=== PATIENT | male | born 1980 | race Caucasian/White ===

== ENCOUNTER 2017-01-16 23:51 | Emergency (ER) | payer OTHER ==
[~2017-01-16] VITALS: Ht 180.3 cm; Wt 118.4 kg
[~2017-01-16 23:51] MED LIST: ADDERALL20 MG PO; ADDERALL5 MG PO; ALBUTEROL0.09 MG/A2 INH; AMOXICILLIN500 M2 PO; AMOXICILLIN500 MG PO; ANTIBIOTIC PO; BACTRIM DS 8001 TA1 PO; BUSPAR PO; BUSPAR15 MG PO; CALCIUM 600 +1 EAC2 PO; CARTIA XT180 MG PO; CEPHALEXIN500 M1 PO; CIPRO PO; CLARITIN10 MG PO; CLONIDINE0.2 MG PO; COLACE100 MG PO; CYMBALTA60 MG PO; DEXTROAMPH SACC20 M1 PO; DIABETA5 MG PO; DIAZEPAM5 MG PO; DOXYCYCLINE MO100 MG PO; DURICEF500 MG PO; GLYBURIDE5 MG PO; HOMEMED SQ; HYDR25T PO; HYDRALAZINE HYD50 MG PO; HYDROXYZINE PAM50 MG PO; KEFLEX500 MG PO; LABETALOL HCL200 MG PO; LASIX40 MG PO; LOSARTAN POTASS1 TA6 PO; LOTRISONE 0.05%1 CRE TP; MEDROL DOSEPAK4 MG PO; METFORMIN HCL500 MG PO; MINIPRESS2 M1 PO; MOTRIN800 MG PO; NEURONTIN300 MG PO; NORVASC10 MG PO; PENICILLIN VK500 MG PO; PERPHENAZINE4 M1 PO; POTASSIUM CHLO10 MEQ PO; PRAVACHOL20 MG PO; PREDNICOT20 MG PO; PRILOSEC20 M1 PO; PRINIVIL10 MG PO; ROBITUSSIN-AC 160 ML PO; Synthroid,Levo50 MCG PO; TESSALON PERLE200 MG PO; TRAMADOL HCL50 MG PO; TRILAFON4 MG PO; Tessalon Perle100 MG PO; ULTRAM50 MG PO; VALIUM10 MG PO; VALIUM5 MG PO; VALSARTAN160 MG PO; VICODIN 5/500 505 MG PO; VISTARIL PO; VISTARIL25 M1 PO; ZESTORETIC 12.51 TA2 PO; ZITHROMAX Z PA250 MG PO; ZITHROMAX Z-PA250 MG PO; ZITHROMAX250 MG PO; ZOFRAN ODT4 MG SL; ZYRTEC10 MG PO; Zofran4 MG PO
[2017-01-17] MEDS ORDERED: APRESOLINE10 MG PO (00:03)
[2017-01-17] MEDS ORDERED: COZAAR25 M1 PO (00:03)
[2017-01-17] MEDS ORDERED: LEVOTHYROXINE0.05 M1 PO (00:04)
[2017-01-17] MEDS ORDERED: LABETALOL HCL200 MG PO (00:04)
[2017-01-17] MEDS ORDERED: GLYBURIDE5 MG PO (00:04)
[2017-01-17] MEDS ORDERED: ATORVASTATIN CA20 M1 PO (00:05)
[2017-01-17 00:17] VITALS: BP 146/76
== END 2017-01-17 00:43 | disposition home or self-care (01) ==
LOC: ED 23:51
DX: S80.812A Abrasion, left lower leg, initial encounter (principal); E11.9 Type 2 diabetes mellitus without complications; I12.9 Hypertensive chronic kidney disease with stage 1 through stage 4 chronic kidney disease, or unspecified chronic kidney disease; N18.3 Chronic kidney disease, stage 3 (moderate); Z79.899 Other long term (current) drug therapy; W17.2XXA Fall into hole, initial encounter; Y93.01 Activity, walking, marching and hiking; Y92.89 Other specified places as the place of occurrence of the external cause; Y99.8 Other external cause status

== ENCOUNTER → 2017-01-30 | Outpatient (CLI) | payer OTHER ==
[~2017-01-30] MED LIST changes: +APRESOLINE10 MG PO; +ATORVASTATIN CA20 M1 PO; +COZAAR25 M1 PO; +LEVOTHYROXINE0.05 M1 PO
[2017-01-30 12:35] LABS: HEMATOCRIT 29.4 % (42.0-52.0); HEMOGLOBIN 10.2 g/dl (14.0-18.0); MEAN CELL VOLUME 88.6 fl (80.0-94.0); MEAN CORPUSCULAR HGB 30.7 pg (27.0-31.0); MEAN CORPUSCULAR HGB CONC 34.7 g/dl (33.0-37.0); MEAN PLATELET VOLUME 10.8 fl (9.6-12.3); RED BLOOD COUNT 3.32 10*6/uL (4.50-5.90); RED CELL DISTRI WIDTH 13.4 % (0-14.5); WHITE BLOOD COUNT 8.3 10*3/uL (4.8-10.8)
[2017-01-30 12:53] LABS: ALBUMIN 3.1 gm/dl (3.1-4.5); BILIRUBIN, TOTAL 0.2 mg/dl (0.2-1.0); POTASSIUM 4.8 mmol/L (3.5-5.1); TOTAL PROTEIN 6.4 gm/dL (6.4-8.2)
[2017-01-30 12:59] LABS: FREE T4 0.96 ng/dl (0.76-1.46); THYROID STIM HORMONE (HS) 2.6 uIU/ml (0.358-4.75)
== END | disposition home or self-care (01) ==
LOC: LAB 12:20
PROVIDERS: Family Medicine
DX: E11.9 Type 2 diabetes mellitus without complications (principal); E78.00 Pure hypercholesterolemia, unspecified; I10 Essential (primary) hypertension; E03.9 Hypothyroidism, unspecified

== ENCOUNTER → 2017-02-27 | Outpatient (CLI) | payer OTHER ==
[2017-02-27 11:38] LABS: BASO % 0.4 % (0.0-1.0); EOS # 0.2 10*3/uL (0.0-0.4); EOS % 2.2 % (1.0-4.0); HEMATOCRIT 33.1 % (42.0-52.0); HEMOGLOBIN 11.5 g/dl (14.0-18.0); IG # 0.1 10*3/uL (0.0-0.1); LYMPH # 2.8 10*3/uL (1.3-4.4); LYMPH % 27.4 % (27.0-41.0); MEAN CELL VOLUME 86.4 fl (80.0-94.0); MEAN CORPUSCULAR HGB CONC 34.7 g/dl (33.0-37.0); MEAN PLATELET VOLUME 11.1 fl (9.6-12.3); MONO # 0.6 10*3/uL (0.1-1.0); MONO % 5.7 % (3.0-9.0); NEUT # 6.4 10*3/uL (2.3-7.9); NEUT % 63.6 % (47.0-73.0); PLATELET COUNT AUTOMATED 216 10*3/uL (130-400); RED BLOOD COUNT 3.83 10*6/uL (4.50-5.90); RED CELL DISTRI WIDTH 12.8 % (0-14.5); WHITE BLOOD COUNT 10.1 10*3/uL (4.8-10.8)
[2017-02-27 11:55] LABS: HEMOGLOBIN A1c 6.9 % (4.8-5.6)
[2017-02-27 12:06] LABS: ALBUMIN 3.4 gm/dl (3.1-4.5); MAGNESIUM 1.8 mg/dL (1.5-2.1); PHOSPHOROUS 4.4 mg/dL (2.5-4.9); POTASSIUM 4.6 mmol/L (3.5-5.1)
[2017-02-27 12:41] LABS: VITAMIN D, 25-HYDROXY 23.3 ng/mL (30-100)
[2017-02-27 12:42] LABS: FERRITIN 185.7 ng/mL (22.0-322.0); PTH INTACT 131.1 pg/mL (14.0-72.0)
[2017-02-27 16:11] LABS: BILIRUBIN NEGATIVE (NEGATIVE); BLOOD NEGATIVE (NEGATIVE); CLARITY SL CLOUDY (CLEAR); COLOR YELLOW (YELLOW); GLUCOSE 2+ (NEGATIVE); KETONE NEGATIVE (NEGATIVE); LEUKO ESTERASE NEGATIVE (NEGATIVE); NITRITE NEGATIVE (NEGATIVE); PH 5.5 (5.0-9.0); PROTEIN 3+ (NEGATIVE); SPECIFIC GRAVITY 1.025 (1.005-1.030); UROBILINOGEN 0.2 E.U./dl (0.2-1.0)
[2017-02-27 16:18] LABS: URINE TP/CRE RATIO 1.5 (<0.21)
[2017-02-27 16:25] LABS: BACTERIA 3+; HYALINE CAST 0-2; MUCOUS TRACE; RBC 0-2 rbc/hpf (0-2); URINE REFLEX COMMENT YES (NO)
== END | disposition home or self-care (01) ==
LOC: US 09:30 → LAB 09:39
PROVIDERS: Family Medicine; Internal Medicine Nephrology
DX: I12.9 Hypertensive chronic kidney disease with stage 1 through stage 4 chronic kidney disease, or unspecified chronic kidney disease (principal); E11.21 Type 2 diabetes mellitus with diabetic nephropathy; E11.22 Type 2 diabetes mellitus with diabetic chronic kidney disease; N18.3 Chronic kidney disease, stage 3 (moderate); N25.81 Secondary hyperparathyroidism of renal origin; I70.1 Atherosclerosis of renal artery; D63.1 Anemia in chronic kidney disease; R79.89 Other specified abnormal findings of blood chemistry

== ENCOUNTER → 2017-03-07 | Outpatient (CLI) | payer OTHER | END | disposition home or self-care (01) | LOC: NM 11:00 | DX: I15.9 Secondary hypertension, unspecified (principal) ==

== ENCOUNTER → 2017-04-03 | Outpatient (CLI) | payer OTHER ==
[2017-04-03 14:39] LABS: CREATININE 2.3 mg/dL (0.70-1.30); PHOSPHOROUS 4.3 mg/dL (2.5-4.9); POTASSIUM 4.7 mmol/L (3.5-5.1)
[2017-04-03 14:40] LABS: ALBUMIN 3.3 gm/dl (3.1-4.5)
== END | disposition home or self-care (01) ==
LOC: LAB 14:02
PROVIDERS: Family Medicine
DX: I10 Essential (primary) hypertension (principal); I70.1 Atherosclerosis of renal artery

== ENCOUNTER → 2017-05-10 | Outpatient (CLI) | payer OTHER ==
[2017-05-10 14:46] LABS: BILIRUBIN NEGATIVE (NEGATIVE); BLOOD NEGATIVE (NEGATIVE); CLARITY SL CLOUDY (CLEAR); COLOR YELLOW (YELLOW); GLUCOSE 1+ (NEGATIVE); KETONE NEGATIVE (NEGATIVE); LEUKO ESTERASE NEGATIVE (NEGATIVE); NITRITE NEGATIVE (NEGATIVE); PH 5.5 (5.0-9.0); SPECIFIC GRAVITY 1.025 (1.005-1.030); UROBILINOGEN 0.2 E.U./dl (0.2-1.0)
[2017-05-10 14:56] LABS: RBC 0-2 rbc/hpf (0-2)
[2017-05-10 14:57] LABS: BACTERIA 2+; MUCOUS TRACE
[2017-05-10 15:05] LABS: BASO # 0.1 10*3/uL (0.0-0.1); BASO % 0.7 % (0.0-1.0); EOS # 0.2 10*3/uL (0.0-0.4); HEMATOCRIT 30.2 % (42.0-52.0); HEMOGLOBIN 10.4 g/dl (14.0-18.0); LYMPH # 2.3 10*3/uL (1.3-4.4); LYMPH % 24.9 % (27.0-41.0); MEAN CELL VOLUME 85.6 fl (80.0-94.0); MEAN CORPUSCULAR HGB 29.5 pg (27.0-31.0); MEAN CORPUSCULAR HGB CONC 34.4 g/dl (33.0-37.0); MEAN PLATELET VOLUME 11.4 fl (9.6-12.3); MONO # 0.5 10*3/uL (0.1-1.0); MONO % 5.1 % (3.0-9.0); NEUT % 66.5 % (47.0-73.0); PLATELET COUNT AUTOMATED 190 10*3/uL (130-400); RED BLOOD COUNT 3.53 10*6/uL (4.50-5.90); RED CELL DISTRI WIDTH 13.2 % (0-14.5)
[2017-05-10 15:22] LABS: ALBUMIN 3.3 gm/dl (3.1-4.5); CREATININE 2.48 mg/dL (0.70-1.30); MAGNESIUM 1.9 mg/dL (1.5-2.1); PHOSPHOROUS 3.6 mg/dL (2.5-4.9); POTASSIUM 4.9 mmol/L (3.5-5.1)
[2017-05-10 15:57] LABS: FERRITIN 253.5 ng/mL (22.0-322.0); PTH INTACT 110.3 pg/mL (14.0-72.0); VITAMIN D, 25-HYDROXY 17.5 ng/mL (30-100)
== END | disposition home or self-care (01) ==
LOC: LAB 14:22
PROVIDERS: Internal Medicine Nephrology
DX: N18.3 Chronic kidney disease, stage 3 (moderate) (principal); D63.1 Anemia in chronic kidney disease; N25.81 Secondary hyperparathyroidism of renal origin; R82.79 Other abnormal findings on microbiological examination of urine

== ENCOUNTER → 2017-06-05 | Outpatient (CLI) | payer OTHER ==
[2017-06-05 14:46] LABS: BASO % 0.5 % (0.0-1.0); EOS # 0.1 10*3/uL (0.0-0.4); EOS % 1.9 % (1.0-4.0); HEMATOCRIT 28.7 % (42.0-52.0); HEMOGLOBIN 9.9 g/dl (14.0-18.0); LYMPH # 2.1 10*3/uL (1.3-4.4); LYMPH % 27.4 % (27.0-41.0); MEAN CELL VOLUME 84.9 fl (80.0-94.0); MEAN CORPUSCULAR HGB 29.3 pg (27.0-31.0); MEAN CORPUSCULAR HGB CONC 34.5 g/dl (33.0-37.0); MEAN PLATELET VOLUME 11.1 fl (9.6-12.3); MONO # 0.5 10*3/uL (0.1-1.0); NEUT # 4.8 10*3/uL (2.3-7.9); NEUT % 63.5 % (47.0-73.0); PLATELET COUNT AUTOMATED 210 10*3/uL (130-400); RED BLOOD COUNT 3.38 10*6/uL (4.50-5.90); RED CELL DISTRI WIDTH 13.1 % (0-14.5); WHITE BLOOD COUNT 7.5 10*3/uL (4.8-10.8)
[2017-06-05 15:20] LABS: ALBUMIN 3.3 gm/dl (3.1-4.5); MAGNESIUM 2.1 mg/dL (1.5-2.1); POTASSIUM 5.2 mmol/L (3.5-5.1)
[2017-06-05 15:21] LABS: CREATININE 2.49 mg/dL (0.70-1.30); PHOSPHOROUS 2.7 mg/dL (2.5-4.9)
== END | disposition home or self-care (01) ==
LOC: LAB 13:59
PROVIDERS: Internal Medicine Nephrology
DX: N18.3 Chronic kidney disease, stage 3 (moderate) (principal); D63.1 Anemia in chronic kidney disease

== ENCOUNTER → 2017-06-19 | Outpatient (CLI) | payer OTHER ==
[2017-06-19 14:37] LABS: BASO % 0.4 % (0.0-1.0); EOS # 0.2 10*3/uL (0.0-0.4); EOS % 2.3 % (1.0-4.0); HEMATOCRIT 29.2 % (42.0-52.0); HEMOGLOBIN 10.1 g/dl (14.0-18.0); LYMPH % 30.2 % (27.0-41.0); MEAN CELL VOLUME 84.6 fl (80.0-94.0); MEAN CORPUSCULAR HGB 29.3 pg (27.0-31.0); MEAN CORPUSCULAR HGB CONC 34.6 g/dl (33.0-37.0); MEAN PLATELET VOLUME 11.3 fl (9.6-12.3); MONO # 0.6 10*3/uL (0.1-1.0); MONO % 5.8 % (3.0-9.0); NEUT # 5.9 10*3/uL (2.3-7.9); NEUT % 60.8 % (47.0-73.0); PLATELET COUNT AUTOMATED 213 10*3/uL (130-400); RED BLOOD COUNT 3.45 10*6/uL (4.50-5.90); WHITE BLOOD COUNT 9.8 10*3/uL (4.8-10.8)
[2017-06-19 14:51] LABS: ALBUMIN 3.5 gm/dl (3.1-4.5); CREATININE 2.43 mg/dL (0.70-1.30); PHOSPHOROUS 3.9 mg/dL (2.5-4.9); POTASSIUM 4.4 mmol/L (3.5-5.1)
== END ==
LOC: LAB 13:44
PROVIDERS: Internal Medicine Nephrology
DX: N18.3 Chronic kidney disease, stage 3 (moderate) (principal); D63.1 Anemia in chronic kidney disease

== ENCOUNTER → 2017-07-04 | Outpatient (CLI) | payer OTHER ==
[2017-07-04 15:42] LABS: BASO # 0.1 10*3/uL (0.0-0.1); BASO % 0.6 % (0.0-1.0); EOS # 0.2 10*3/uL (0.0-0.4); EOS % 2.3 % (1.0-4.0); HEMOGLOBIN 10.3 g/dl (14.0-18.0); LYMPH # 2.2 10*3/uL (1.3-4.4); LYMPH % 25.3 % (27.0-41.0); MEAN CELL VOLUME 84.3 fl (80.0-94.0); MEAN CORPUSCULAR HGB 28.9 pg (27.0-31.0); MEAN CORPUSCULAR HGB CONC 34.3 g/dl (33.0-37.0); MEAN PLATELET VOLUME 11.4 fl (9.6-12.3); MONO # 0.5 10*3/uL (0.1-1.0); MONO % 5.4 % (3.0-9.0); NEUT # 5.8 10*3/uL (2.3-7.9); NEUT % 65.8 % (47.0-73.0); PLATELET COUNT AUTOMATED 215 10*3/uL (130-400); RED BLOOD COUNT 3.56 10*6/uL (4.50-5.90); WHITE BLOOD COUNT 8.8 10*3/uL (4.8-10.8)
[2017-07-04 15:54] LABS: ALBUMIN 3.7 gm/dl (3.1-4.5); CREATININE 2.54 mg/dL (0.70-1.30); PHOSPHOROUS 4.6 mg/dL (2.5-4.9); POTASSIUM 4.3 mmol/L (3.5-5.1)
== END ==
LOC: LAB 14:58
PROVIDERS: Internal Medicine Nephrology
DX: N18.3 Chronic kidney disease, stage 3 (moderate) (principal); D63.1 Anemia in chronic kidney disease

== ENCOUNTER → 2017-07-19 | Outpatient (CLI) | payer OTHER ==
[2017-07-19 16:50] LABS: BASO # 0.1 10*3/uL (0.0-0.1); BASO % 0.5 % (0.0-1.0); EOS # 0.2 10*3/uL (0.0-0.4); EOS % 1.8 % (1.0-4.0); HEMATOCRIT 28.7 % (42.0-52.0); HEMOGLOBIN 9.8 g/dl (14.0-18.0); LYMPH # 2.1 10*3/uL (1.3-4.4); LYMPH % 22.2 % (27.0-41.0); MEAN CELL VOLUME 83.9 fl (80.0-94.0); MEAN CORPUSCULAR HGB 28.7 pg (27.0-31.0); MEAN CORPUSCULAR HGB CONC 34.1 g/dl (33.0-37.0); MEAN PLATELET VOLUME 11.2 fl (9.6-12.3); MONO # 0.5 10*3/uL (0.1-1.0); MONO % 5.4 % (3.0-9.0); NEUT # 6.6 10*3/uL (2.3-7.9); NEUT % 69.1 % (47.0-73.0); PLATELET COUNT AUTOMATED 205 10*3/uL (130-400); RED BLOOD COUNT 3.42 10*6/uL (4.50-5.90); WHITE BLOOD COUNT 9.5 10*3/uL (4.8-10.8)
[2017-07-19 17:18] LABS: ALBUMIN 3.6 gm/dl (3.1-4.5); CREATININE 2.68 mg/dL (0.70-1.30); PHOSPHOROUS 4.3 mg/dL (2.5-4.9); POTASSIUM 4.8 mmol/L (3.5-5.1)
== END | disposition home or self-care (01) ==
LOC: LAB 16:05
PROVIDERS: Internal Medicine Nephrology
DX: I12.9 Hypertensive chronic kidney disease with stage 1 through stage 4 chronic kidney disease, or unspecified chronic kidney disease (principal); E11.22 Type 2 diabetes mellitus with diabetic chronic kidney disease; N18.3 Chronic kidney disease, stage 3 (moderate); D63.1 Anemia in chronic kidney disease

== ENCOUNTER → 2017-08-09 | Outpatient (CLI) | payer OTHER ==
[2017-08-09 16:17] LABS: BASO % 0.2 % (0.0-1.0); EOS # 0.1 10*3/uL (0.0-0.4); EOS % 1.3 % (1.0-4.0); HEMATOCRIT 29.4 % (42.0-52.0); HEMOGLOBIN 10.3 g/dl (14.0-18.0); LYMPH # 2.5 10*3/uL (1.3-4.4); LYMPH % 23.6 % (27.0-41.0); MEAN CELL VOLUME 83.3 fl (80.0-94.0); MEAN CORPUSCULAR HGB 29.2 pg (27.0-31.0); MEAN PLATELET VOLUME 10.9 fl (9.6-12.3); MONO # 0.6 10*3/uL (0.1-1.0); MONO % 6.1 % (3.0-9.0); NEUT # 7.1 10*3/uL (2.3-7.9); NEUT % 68.4 % (47.0-73.0); PLATELET COUNT AUTOMATED 246 10*3/uL (130-400); RED BLOOD COUNT 3.53 10*6/uL (4.50-5.90); RED CELL DISTRI WIDTH 12.8 % (0-14.5); WHITE BLOOD COUNT 10.4 10*3/uL (4.8-10.8)
[2017-08-09 16:30] LABS: ALBUMIN 3.8 gm/dl (3.1-4.5); CREATININE 2.71 mg/dL (0.70-1.30); PHOSPHOROUS 3.9 mg/dL (2.5-4.9); POTASSIUM 4.4 mmol/L (3.5-5.1)
== END | disposition home or self-care (01) ==
LOC: LAB 15:56
PROVIDERS: Internal Medicine Nephrology
DX: N18.3 Chronic kidney disease, stage 3 (moderate) (principal); D63.1 Anemia in chronic kidney disease

== ENCOUNTER → 2017-09-07 | Outpatient (CLI) | payer OTHER ==
[2017-09-07 16:53] LABS: BASO # 0.1 10*3/uL (0.0-0.1); BASO % 0.5 % (0.0-1.0); EOS # 0.1 10*3/uL (0.0-0.4); EOS % 1.3 % (1.0-4.0); HEMATOCRIT 29.8 % (42.0-52.0); HEMOGLOBIN 10.3 g/dl (14.0-18.0); LYMPH # 2.4 10*3/uL (1.3-4.4); MEAN CELL VOLUME 84.4 fl (80.0-94.0); MEAN CORPUSCULAR HGB 29.2 pg (27.0-31.0); MEAN CORPUSCULAR HGB CONC 34.6 g/dl (33.0-37.0); MEAN PLATELET VOLUME 11.2 fl (9.6-12.3); MONO # 0.5 10*3/uL (0.1-1.0); MONO % 4.9 % (3.0-9.0); NEUT # 7.4 10*3/uL (2.3-7.9); NEUT % 69.5 % (47.0-73.0); PLATELET COUNT AUTOMATED 245 10*3/uL (130-400); RED BLOOD COUNT 3.53 10*6/uL (4.50-5.90); RED CELL DISTRI WIDTH 12.7 % (0-14.5); WHITE BLOOD COUNT 10.6 10*3/uL (4.8-10.8)
[2017-09-07 17:08] LABS: ALBUMIN 3.8 gm/dl (3.1-4.5); CREATININE 2.13 mg/dL (0.70-1.30); PHOSPHOROUS 2.8 mg/dL (2.5-4.9); POTASSIUM 4.7 mmol/L (3.5-5.1)
== END | disposition home or self-care (01) ==
LOC: LAB 15:48
PROVIDERS: Internal Medicine Nephrology
DX: N18.3 Chronic kidney disease, stage 3 (moderate) (principal); D63.1 Anemia in chronic kidney disease

== ENCOUNTER → 2017-09-27 | Outpatient (CLI) | payer OTHER ==
[2017-09-27 16:20] LABS: BASO % 0.3 % (0.0-1.0); EOS # 0.1 10*3/uL (0.0-0.4); EOS % 1.6 % (1.0-4.0); HEMATOCRIT 28.3 % (42.0-52.0); HEMOGLOBIN 9.7 g/dl (14.0-18.0); LYMPH # 2.1 10*3/uL (1.3-4.4); LYMPH % 24.7 % (27.0-41.0); MEAN CORPUSCULAR HGB 29.1 pg (27.0-31.0); MEAN CORPUSCULAR HGB CONC 34.3 g/dl (33.0-37.0); MEAN PLATELET VOLUME 10.4 fl (9.6-12.3); MONO # 0.6 10*3/uL (0.1-1.0); MONO % 7.3 % (3.0-9.0); NEUT # 5.6 10*3/uL (2.3-7.9); NEUT % 65.4 % (47.0-73.0); PLATELET COUNT AUTOMATED 200 10*3/uL (130-400); RED BLOOD COUNT 3.33 10*6/uL (4.50-5.90); WHITE BLOOD COUNT 8.6 10*3/uL (4.8-10.8)
[2017-09-27 16:31] LABS: ALBUMIN 3.6 gm/dl (3.1-4.5); CREATININE 2.15 mg/dL (0.70-1.30); POTASSIUM 4.6 mmol/L (3.5-5.1)
[2017-09-27 16:32] LABS: PHOSPHOROUS 2.9 mg/dL (2.5-4.9)
== END | disposition home or self-care (01) ==
LOC: LAB 16:05
PROVIDERS: Internal Medicine Nephrology
DX: N18.3 Chronic kidney disease, stage 3 (moderate) (principal); D63.1 Anemia in chronic kidney disease

== ENCOUNTER → 2018-01-25 | Outpatient (CLI) | payer OTHER ==
[2018-01-25 08:01] LABS: BASO # 0.1 10*3/uL (0.0-0.1); BASO % 0.5 % (0.0-1.0); EOS # 0.1 10*3/uL (0.0-0.4); EOS % 1.3 % (1.0-4.0); HEMATOCRIT 35.8 % (42.0-52.0); HEMOGLOBIN 11.9 g/dl (14.0-18.0); LYMPH % 27.6 % (27.0-41.0); MEAN CELL VOLUME 85.2 fl (80.0-94.0); MEAN CORPUSCULAR HGB 28.3 pg (27.0-31.0); MEAN CORPUSCULAR HGB CONC 33.2 g/dl (33.0-37.0); MEAN PLATELET VOLUME 11.5 fl (9.6-12.3); MONO # 0.6 10*3/uL (0.1-1.0); NEUT # 6.9 10*3/uL (2.3-7.9); NEUT % 64.1 % (47.0-73.0); PLATELET COUNT AUTOMATED 228 10*3/uL (130-400); RED CELL DISTRI WIDTH 12.8 % (0-14.5); WHITE BLOOD COUNT 10.7 10*3/uL (4.8-10.8)
[2018-01-25 09:42] LABS: ALBUMIN 3.9 gm/dl (3.1-4.5); CREATININE 2.12 mg/dL (0.70-1.30); PHOSPHOROUS 4.3 mg/dL (2.5-4.9); POTASSIUM 4.5 mmol/L (3.5-5.1)
== END | disposition home or self-care (01) ==
LOC: LAB 06:34
PROVIDERS: Internal Medicine Nephrology
DX: I12.9 Hypertensive chronic kidney disease with stage 1 through stage 4 chronic kidney disease, or unspecified chronic kidney disease (principal); N18.3 Chronic kidney disease, stage 3 (moderate); R80.9 Proteinuria, unspecified

== ENCOUNTER → 2018-05-15 | Outpatient (CLI) | payer OTHER ==
--- NOTE | ~2018-05-15 | EKG ---
[place], [place] ELECTROCARDIOGRAM REPORT NAME: ALEXANDR CAREY UNIT #: [id number] ROOM: DOCTOR: EPIPHANY DRAFT REPORT BIRTHDATE: [birth year] [facility] Test Date: 2018-05-15 Test Time: 14:49:00 Pat Name: ALEXANDR CAREY Department: Room: Gender: In File Operator: Denise Langley : 1980 Requested By: LEONOR TILLMAN Order Number: [id number] Reading MD: Vik Ball MD Measurements Intervals [place] Rate: 88 P: 20 CA: 159 QRS: -19 QRSD: 103 T: 70 QT: 364 QTc: 441 Interpretive Statements Sinus rhythm Borderline left axis deviation ST elev, probable normal early repol pattern Baseline wander in lead(s) V3,V4 Electronically Signed On 05-15-2018 19:49:35 PDT by Vik Ball MD CM:EKGRPT:ELECTROCARDIOGRAM REPORT [id number] LEONOR TILLMAN MD EPIPHANY DRAFT REPORT LEONOR TILLMAN MD
[2018-05-15 14:42] LABS: BASO # 0.1 10*3/uL (0.0-0.1); BASO % 0.5 % (0.0-1.0); EOS # 0.1 10*3/uL (0.0-0.4); EOS % 1.2 % (1.0-4.0); HEMATOCRIT 39.2 % (42.0-52.0); HEMOGLOBIN 13.4 g/dl (14.0-18.0); LYMPH # 2.2 10*3/uL (1.3-4.4); LYMPH % 19.7 % (27.0-41.0); MEAN CELL VOLUME 84.5 fl (80.0-94.0); MEAN CORPUSCULAR HGB 28.9 pg (27.0-31.0); MEAN CORPUSCULAR HGB CONC 34.2 g/dl (33.0-37.0); MEAN PLATELET VOLUME 10.5 fl (9.6-12.3); MONO # 0.5 10*3/uL (0.1-1.0); MONO % 4.5 % (3.0-9.0); NEUT # 8.1 10*3/uL (2.3-7.9); NEUT % 73.7 % (47.0-73.0); PLATELET COUNT AUTOMATED 233 10*3/uL (130-400); RED BLOOD COUNT 4.64 10*6/uL (4.50-5.90); RED CELL DISTRI WIDTH 13.3 % (0-14.5); WHITE BLOOD COUNT 10.9 10*3/uL (4.8-10.8)
[2018-05-15 15:15] LABS: CREATININE 2.34 mg/dL (0.70-1.30); PHOSPHOROUS 3.9 mg/dL (2.5-4.9); POTASSIUM 4.3 mmol/L (3.5-5.1)
[2018-05-15 15:16] LABS: PTH INTACT 102.2 pg/mL (18.5-88.0); VITAMIN D, 25-HYDROXY 44.8 ng/mL (30-100)
[2018-05-15 15:17] LABS: CLARITY CLEAR (CLEAR); COLOR YELLOW (YELLOW)
[2018-05-15 15:18] LABS: BILIRUBIN NEGATIVE (NEGATIVE); BLOOD NEGATIVE (NEGATIVE); GLUCOSE 3+ (NEGATIVE); KETONE NEGATIVE (NEGATIVE); LEUKO ESTERASE NEGATIVE (NEGATIVE); NITRITE NEGATIVE (NEGATIVE); PH 6.5 (5.0-9.0); RBC 0-2 rbc/hpf (0-2); UROBILINOGEN 0.2 E.U./dl (0.2-1.0); WBC 0-2 wbc/hpf (0-5)
[2018-05-15 15:21] LABS: TOTAL PROTEIN 7.8 gm/dL (6.4-8.2)
== END | disposition home or self-care (01) ==
LOC: LAB 14:18
PROVIDERS: Internal Medicine Nephrology
DX: I12.9 Hypertensive chronic kidney disease with stage 1 through stage 4 chronic kidney disease, or unspecified chronic kidney disease (principal); E11.22 Type 2 diabetes mellitus with diabetic chronic kidney disease; D63.1 Anemia in chronic kidney disease; N18.3 Chronic kidney disease, stage 3 (moderate); N25.81 Secondary hyperparathyroidism of renal origin; E55.9 Vitamin D deficiency, unspecified; E78.00 Pure hypercholesterolemia, unspecified

== ENCOUNTER → 2018-07-09 | Outpatient (CLI) | payer OTHER ==
[2018-07-09 18:19] LABS: HEMATOCRIT 38.7 % (42.0-52.0); HEMOGLOBIN 13.1 g/dl (14.0-18.0); MEAN CELL VOLUME 85.2 fl (80.0-94.0); MEAN CORPUSCULAR HGB 28.9 pg (27.0-31.0); MEAN CORPUSCULAR HGB CONC 33.9 g/dl (33.0-37.0); MEAN PLATELET VOLUME 10.2 fl (9.6-12.3); RED BLOOD COUNT 4.54 10*6/uL (4.50-5.90); RED CELL DISTRI WIDTH 12.9 % (0-14.5); WHITE BLOOD COUNT 9.4 10*3/uL (4.8-10.8)
[2018-07-09 18:35] LABS: CREATININE 2.33 mg/dL (0.70-1.30); POTASSIUM 4.2 mmol/L (3.5-5.1); TOTAL PROTEIN 7.7 gm/dL (6.4-8.2)
== END ==
LOC: LAB 18:00
PROVIDERS: Family Medicine
DX: E11.9 Type 2 diabetes mellitus without complications (principal); I10 Essential (primary) hypertension; E78.00 Pure hypercholesterolemia, unspecified

== ENCOUNTER 2018-08-02 14:26 | Emergency (ER) | payer OTHER ==
[~2018-08-02] VITALS: Ht 180.3 cm; Wt 111.1 kg
[2018-08-02 14:27] VITALS: BP 144/84
== END 2018-08-02 15:55 | disposition home or self-care (01) ==
LOC: ED 14:26
DX: B34.9 Viral infection, unspecified (principal); I12.9 Hypertensive chronic kidney disease with stage 1 through stage 4 chronic kidney disease, or unspecified chronic kidney disease; E11.22 Type 2 diabetes mellitus with diabetic chronic kidney disease; N18.3 Chronic kidney disease, stage 3 (moderate); Z88.8 Allergy status to other drugs, medicaments and biological substances; Z79.899 Other long term (current) drug therapy; Z79.84 Long term (current) use of oral hypoglycemic drugs

== ENCOUNTER → 2018-11-25 | Outpatient (CLI) | payer OTHER ==
[~2018-11-25] MED LIST changes: +Motrin,Rufen800 MG PO
[2018-11-25 13:36] LABS: HEMATOCRIT 39.3 % (42.0-52.0); HEMOGLOBIN 13.3 g/dl (14.0-18.0); MEAN CELL VOLUME 84.2 fl (80.0-94.0); MEAN CORPUSCULAR HGB 28.5 pg (27.0-31.0); MEAN CORPUSCULAR HGB CONC 33.8 g/dl (33.0-37.0); MEAN PLATELET VOLUME 10.8 fl (9.6-12.3); RED BLOOD COUNT 4.67 10*6/uL (4.50-5.90); RED CELL DISTRI WIDTH 12.8 % (0-14.5); WHITE BLOOD COUNT 9.9 10*3/uL (4.8-10.8)
[2018-11-25 13:55] LABS: ALBUMIN 3.7 gm/dl (3.1-4.5); CREATININE 2.05 mg/dL (0.70-1.30); POTASSIUM 4.4 mmol/L (3.5-5.1)
[2018-11-25 13:56] LABS: PHOSPHOROUS 3.7 mg/dL (2.5-4.9)
[2018-11-25 13:57] LABS: TOTAL PROTEIN 7.9 gm/dL (6.4-8.2)
[2018-11-25 14:16] LABS: FERRITIN 113.1 ng/mL (22.0-322.0)
[2018-11-25 14:17] LABS: PTH INTACT 62.4 pg/mL (18.5-88.0); VITAMIN D, 25-HYDROXY 56.2 ng/mL (30-100)
[2018-11-26 05:05] LABS: PROLACTIN 004465 19.2 ng/mL (4.0-15.2)
== END | disposition home or self-care (01) ==
LOC: LAB 13:00
PROVIDERS: Family Medicine; Internal Medicine Nephrology
DX: E11.21 Type 2 diabetes mellitus with diabetic nephropathy (principal); E11.22 Type 2 diabetes mellitus with diabetic chronic kidney disease; N18.3 Chronic kidney disease, stage 3 (moderate); D63.1 Anemia in chronic kidney disease; N25.81 Secondary hyperparathyroidism of renal origin; E55.9 Vitamin D deficiency, unspecified; E78.00 Pure hypercholesterolemia, unspecified; R05 Cough

== ENCOUNTER 2018-11-28 21:31 | Emergency (ER) | payer OTHER ==
[~2018-11-28] VITALS: Ht 180.3 cm; Wt 108.9 kg
[~2018-11-28 21:31] MED LIST changes: -Motrin,Rufen800 MG PO
[2018-11-28 21:38] VITALS: BP 158/86
== END 2018-11-28 22:52 | disposition home or self-care (01) ==
LOC: ED 21:31
DX: H20.00 Unspecified acute and subacute iridocyclitis (principal); I12.9 Hypertensive chronic kidney disease with stage 1 through stage 4 chronic kidney disease, or unspecified chronic kidney disease; E11.22 Type 2 diabetes mellitus with diabetic chronic kidney disease; N18.3 Chronic kidney disease, stage 3 (moderate); E11.65 Type 2 diabetes mellitus with hyperglycemia; Z79.899 Other long term (current) drug therapy; Z88.8 Allergy status to other drugs, medicaments and biological substances

== ENCOUNTER 2019-02-13 15:34 | Emergency (ER) | payer OTHER ==
[~2019-02-13] VITALS: Ht 180.3 cm; Wt 106.6 kg
[2019-02-13 15:39] VITALS: BP 142/69
[2019-02-13] MEDS ORDERED: Motrin,Rufen800 MG PO (16:52)
== END 2019-02-13 16:51 | disposition home or self-care (01) ==
LOC: ED 15:34
DX: S86.911A Strain of unspecified muscle(s) and tendon(s) at lower leg level, right leg, initial encounter (principal); F17.200 Nicotine dependence, unspecified, uncomplicated; Z88.8 Allergy status to other drugs, medicaments and biological substances; Z79.899 Other long term (current) drug therapy; W18.31XA Fall on same level due to stepping on an object, initial encounter; Y93.89 Activity, other specified; Y92.89 Other specified places as the place of occurrence of the external cause; Y99.8 Other external cause status

== ENCOUNTER → 2019-03-04 | Outpatient (CLI) | payer OTHER ==
[~2019-03-04] MED LIST changes: +Motrin,Rufen800 MG PO
== END | disposition home or self-care (01) ==
LOC: RAD 13:53
DX: R06.02 Shortness of breath (principal); E11.9 Type 2 diabetes mellitus without complications; I10 Essential (primary) hypertension; F17.200 Nicotine dependence, unspecified, uncomplicated; R05 Cough

== ENCOUNTER 2019-05-16 19:51 | Emergency (ER) | payer OTHER ==
[~2019-05-16] VITALS: Ht 180.3 cm; Wt 108.9 kg
[2019-05-16 19:53] VITALS: BP 168/101
[2019-05-16] MEDS ORDERED: INSPRA25 MG PO (20:03)
[2019-05-16] MEDS ORDERED: LASIX80 MG PO (20:03)
[2019-05-16] MEDS ORDERED: Motrin,Rufen800 MG PO (21:45)
[2019-05-16] MEDS ORDERED: KEFLEX500 M1 PO (21:45)
== END 2019-05-16 23:19 | disposition home or self-care (01) ==
LOC: ED 19:51
DX: S62.630B Displaced fracture of distal phalanx of right index finger, initial encounter for open fracture (principal); I12.9 Hypertensive chronic kidney disease with stage 1 through stage 4 chronic kidney disease, or unspecified chronic kidney disease; E11.22 Type 2 diabetes mellitus with diabetic chronic kidney disease; N18.3 Chronic kidney disease, stage 3 (moderate); Z88.8 Allergy status to other drugs, medicaments and biological substances; Z79.899 Other long term (current) drug therapy; W22.8XXA Striking against or struck by other objects, initial encounter; Y93.89 Activity, other specified; Y92.89 Other specified places as the place of occurrence of the external cause; Y99.8 Other external cause status

== ENCOUNTER → 2019-07-31 | Outpatient (CLI) | payer OTHER ==
[~2019-07-31] MED LIST changes: +INSPRA25 MG PO; +KEFLEX500 M1 PO; +LASIX80 MG PO
[2019-07-31 12:16] LABS: BILIRUBIN NEGATIVE (NEGATIVE); BLOOD NEGATIVE (NEGATIVE); CLARITY CLEAR (CLEAR); COLOR YELLOW (YELLOW); GLUCOSE NEGATIVE (NEGATIVE); KETONE NEGATIVE (NEGATIVE); LEUKO ESTERASE NEGATIVE (NEGATIVE); NITRITE NEGATIVE (NEGATIVE); UROBILINOGEN 0.2 E.U./dl (0.2-1.0)
[2019-07-31 12:17] LABS: BASO # 0.1 10*3/uL (0.0-0.1); BASO % 0.5 % (0.0-1.0); EOS # 0.2 10*3/uL (0.0-0.4); EOS % 1.6 % (1.0-4.0); HEMOGLOBIN 14.3 g/dl (14.0-18.0); LYMPH # 2.8 10*3/uL (1.3-4.4); LYMPH % 25.4 % (27.0-41.0); MEAN CORPUSCULAR HGB 28.6 pg (27.0-31.0); MEAN CORPUSCULAR HGB CONC 33.3 g/dl (33.0-37.0); MEAN PLATELET VOLUME 10.7 fl (9.6-12.3); MONO # 0.6 10*3/uL (0.1-1.0); MONO % 5.6 % (3.0-9.0); NEUT # 7.3 10*3/uL (2.3-7.9); NEUT % 66.4 % (47.0-73.0); PLATELET COUNT AUTOMATED 255 10*3/uL (130-400); RED CELL DISTRI WIDTH 13.2 % (0-14.5)
[2019-07-31 12:27] LABS: RBC 0-2 rbc/hpf (0-2); WBC 0-2 wbc/hpf (0-5)
[2019-07-31 12:55] LABS: ALBUMIN 3.9 gm/dl (3.1-4.5); CREATININE 1.86 mg/dL (0.70-1.30); PHOSPHOROUS 3.5 mg/dL (2.5-4.9); POTASSIUM 4.4 mmol/L (3.5-5.1)
[2019-07-31 13:49] LABS: FERRITIN 43.2 ng/mL (22.0-322.0); VITAMIN D, 25-HYDROXY 62.7 ng/mL (30-100)
== END | disposition home or self-care (01) ==
LOC: LAB 11:52
PROVIDERS: Internal Medicine Nephrology
DX: E11.21 Type 2 diabetes mellitus with diabetic nephropathy (principal); E55.9 Vitamin D deficiency, unspecified; D63.1 Anemia in chronic kidney disease; N18.3 Chronic kidney disease, stage 3 (moderate); N25.81 Secondary hyperparathyroidism of renal origin; E11.22 Type 2 diabetes mellitus with diabetic chronic kidney disease

== ENCOUNTER → 2020-03-04 | Outpatient (CLI) | payer MEDICARE, MEDICAID | END | disposition home or self-care (01) | LOC: COVID19 00:13 | DX: R05 Cough (principal); R06.02 Shortness of breath; R50.9 Fever, unspecified; R43.8 Other disturbances of smell and taste; Z20.828 Contact with and (suspected) exposure to other viral communicable diseases ==

== ENCOUNTER → 2020-06-16 | Outpatient (CLI) | payer MEDICARE | END | disposition home or self-care (01) | LOC: COVID19 04:35 | PROVIDERS: ATTEND Family Medicine | DX: Z20.828 Contact with and (suspected) exposure to other viral communicable diseases (principal) ==

== ENCOUNTER 2020-11-12 05:44 | Emergency (ER) | payer MEDICARE ==
[~2020-11-12] VITALS: Ht 180.3 cm; Wt 104.3 kg
[2020-11-12 06:51] LABS: BASO % 0.2 % (0.0-1.0); EOS # 0.1 10*3/uL (0.0-0.4); EOS % 1.4 % (1.0-4.0); HEMATOCRIT 38.2 % (42.0-52.0); LYMPH # 0.6 10*3/uL (1.3-4.4); LYMPH % 5.9 % (27.0-41.0); MEAN CELL VOLUME 83.8 fl (80.0-94.0); MEAN CORPUSCULAR HGB 29.2 pg (27.0-31.0); MEAN CORPUSCULAR HGB CONC 34.8 g/dl (33.0-37.0); MEAN PLATELET VOLUME 10.1 fl (9.6-12.3); MONO # 0.4 10*3/uL (0.1-1.0); MONO % 3.7 % (3.0-9.0); NEUT # 8.4 10*3/uL (2.3-7.9); NEUT % 88.2 % (47.0-73.0); PLATELET COUNT AUTOMATED 194 10*3/uL (130-400); RED BLOOD COUNT 4.56 10*6/uL (4.50-5.90); RED CELL DISTRI WIDTH 12.8 % (0-14.5); WHITE BLOOD COUNT 9.5 10*3/uL (4.8-10.8)
[2020-11-12 07:10] LABS: CREATININE 2.39 mg/dL (0.70-1.30); POTASSIUM 3.8 mmol/L (3.5-5.1); TOTAL PROTEIN 5.2 gm/dL (6.4-8.2)
[2020-11-12 07:20] VITALS: BP 159/84
[2020-11-12] MEDS ORDERED: CYCLOBENZAPRINE10 MG PO (08:12)
[2020-11-12] MEDS ORDERED: PERCOCET 5-3251 EACH PO (08:12)
== END 2020-11-12 08:32 | disposition home or self-care (01) ==
LOC: ED 05:44
PROVIDERS: Emergency Medicine
DX: M54.41 Lumbago with sciatica, right side (principal); I12.9 Hypertensive chronic kidney disease with stage 1 through stage 4 chronic kidney disease, or unspecified chronic kidney disease; E11.22 Type 2 diabetes mellitus with diabetic chronic kidney disease; N18.30 Chronic kidney disease, stage 3 unspecified; F31.9 Bipolar disorder, unspecified; F17.200 Nicotine dependence, unspecified, uncomplicated; Z79.899 Other long term (current) drug therapy

== ENCOUNTER → 2020-11-30 | Outpatient (CLI) | payer MEDICARE ==
[~2020-11-30] MED LIST changes: +CYCLOBENZAPRINE10 MG PO; +PERCOCET 5-3251 EACH PO
[2020-11-30 18:40] LABS: HEMATOCRIT 37.3 % (42.0-52.0); MEAN CELL VOLUME 81.8 fl (80.0-94.0); MEAN CORPUSCULAR HGB 28.9 pg (27.0-31.0); MEAN CORPUSCULAR HGB CONC 35.4 g/dl (33.0-37.0); MEAN PLATELET VOLUME 10.8 fl (9.6-12.3); RED BLOOD COUNT 4.56 10*6/uL (4.50-5.90); RED CELL DISTRI WIDTH 12.8 % (0-14.5); WHITE BLOOD COUNT 8.8 10*3/uL (4.8-10.8)
[2020-11-30 18:56] LABS: ALBUMIN 2.2 gm/dl (3.1-4.5); CREATININE 2.43 mg/dL (0.70-1.30); POTASSIUM 4.2 mmol/L (3.5-5.1); TOTAL PROTEIN 5.9 gm/dL (6.4-8.2)
== END | disposition home or self-care (01) ==
LOC: LAB 17:07
PROVIDERS: ATTEND Nurse Practitioner Family
DX: I12.9 Hypertensive chronic kidney disease with stage 1 through stage 4 chronic kidney disease, or unspecified chronic kidney disease (principal); N18.9 Chronic kidney disease, unspecified; E11.21 Type 2 diabetes mellitus with diabetic nephropathy

== ENCOUNTER → 2020-12-22 | Outpatient (CLI) | payer MEDICARE | END | disposition home or self-care (01) | LOC: US 13:23 | PROVIDERS: ATTEND Family Medicine | DX: R22.1 Localized swelling, mass and lump, neck (principal) ==

== ENCOUNTER 2021-02-09 12:00 | Emergency (ER) | payer MEDICARE ==
[2021-02-09 12:02] VITALS: BP 152/98
[2021-02-09] MEDS ORDERED: PREDNISONE20 M1 PO (14:29)
== END 2021-02-09 14:35 | disposition home or self-care (01) ==
LOC: ED 12:00
DX: M54.16 Radiculopathy, lumbar region (principal); Z79.899 Other long term (current) drug therapy

== ENCOUNTER 2021-03-23 19:06 | Emergency (ER) | payer MEDICARE ==
[~2021-03-23] VITALS: Ht 180.3 cm; Wt 100.7 kg
[~2021-03-23 19:06] MED LIST changes: +PREDNISONE20 M1 PO
[2021-03-23 20:15] VITALS: BP 202/118
[2021-03-23] MEDS ORDERED: METHOCARBAMOL750 M1 PO (20:17)
[2021-03-23] MEDS ORDERED: NAPROSYN500 MG PO (20:17)
== END 2021-03-23 20:32 | disposition home or self-care (01) ==
LOC: ED 19:06
DX: M54.41 Lumbago with sciatica, right side (principal); Z88.8 Allergy status to other drugs, medicaments and biological substances; Z79.899 Other long term (current) drug therapy

== ENCOUNTER 2021-11-10 09:19 | Emergency (ER) | payer OTHER, MEDICARE ==
[~2021-11-10] VITALS: Wt 106.1 kg
[~2021-11-10 09:19] MED LIST changes: +METHOCARBAMOL750 M1 PO; +NAPROSYN500 MG PO
[2021-11-10 09:22] VITALS: BP 117/55
[2021-11-10] MEDS ORDERED: IBU800 M2 PO (10:20)
== END 2021-11-10 10:20 | disposition home or self-care (01) ==
LOC: ED 09:19
DX: S39.011A Strain of muscle, fascia and tendon of abdomen, initial encounter (principal); Z88.8 Allergy status to other drugs, medicaments and biological substances; Z79.899 Other long term (current) drug therapy; F17.200 Nicotine dependence, unspecified, uncomplicated; V43.62XA Car passenger injured in collision with other type car in traffic accident, initial encounter; Y93.89 Activity, other specified; Y92.89 Other specified places as the place of occurrence of the external cause; Y99.8 Other external cause status

== ENCOUNTER → 2021-11-21 | Outpatient (CLI) | payer MEDICARE ==
[~2021-11-21] MED LIST changes: +BUPRENORPHINE1 EACH TD; +CIMETIDINE400 M1 PO; +IBU800 M2 PO; +LANTUS SOL100 UNIT/1 SQ
[2021-11-21 14:55] LABS: BASO % 0.5 % (0.0-1.0); EOS # 0.2 10*3/uL (0.0-0.4); EOS % 2.3 % (1.0-4.0); HEMATOCRIT 26.8 % (42.0-52.0); LYMPH # 1.6 10*3/uL (1.3-4.4); LYMPH % 20.1 % (27.0-41.0); MEAN CELL VOLUME 84.5 fl (80.0-94.0); MEAN CORPUSCULAR HGB 28.4 pg (27.0-31.0); MEAN CORPUSCULAR HGB CONC 33.6 g/dl (33.0-37.0); MEAN PLATELET VOLUME 10.3 fl (9.6-12.3); MONO # 0.6 10*3/uL (0.1-1.0); MONO % 7.5 % (3.0-9.0); NEUT # 5.4 10*3/uL (2.3-7.9); NEUT % 69.2 % (47.0-73.0); PLATELET COUNT AUTOMATED 259 10*3/uL (130-400); RED BLOOD COUNT 3.17 10*6/uL (4.50-5.90); RED CELL DISTRI WIDTH 12.9 % (0-14.5); WHITE BLOOD COUNT 7.9 10*3/uL (4.8-10.8)
[2021-11-21 15:08] LABS: CREATININE 11.2 mg/dL (0.70-1.30); POTASSIUM 4.5 mmol/L (3.5-5.1)
[2021-11-21 15:42] LABS: VITAMIN D, 25-HYDROXY 13.4 ng/mL (30-100)
[2021-11-21 17:58] LABS: BILIRUBIN Negative (Negative); BLOOD 1+ (Negative); CLARITY Clear (Clear); COLOR Yellow (Yellow); GLUCOSE 1+ (Negative); KETONE Negative (Negative); LEUKO ESTERASE Negative (Negative); NITRITE Negative (Negative); PH 6.5 (4.5-8.0); SPECIFIC GRAVITY 1.015 (1.001-1.030); UROBILINOGEN 0.2 E.U./dl (0.0-1.0)
[2021-11-21 18:06] LABS: URINE CREATININE RANDOM 72.5 mg/dL
[2021-11-21 18:08] LABS: BACTERIA 1+; MUCOUS 1+; WBC 21-30 wbc/hpf (0-5)
[2021-11-23 04:06] LABS: HEP B CORE AB, IGM Negative (Negative); HEPATITIS B SURFACE AG Negative (Negative); HEPATITIS C VIRUS ANTIBODY <0.1 s/co (0.0-0.9)
== END | disposition home or self-care (01) ==
LOC: LAB 13:59
PROVIDERS: ATTEND Internal Medicine Nephrology
DX: N17.9 Acute kidney failure, unspecified (principal); E55.9 Vitamin D deficiency, unspecified; E11.21 Type 2 diabetes mellitus with diabetic nephropathy; N25.81 Secondary hyperparathyroidism of renal origin; D63.1 Anemia in chronic kidney disease; R53.83 Other fatigue; Z79.899 Other long term (current) drug therapy

== ENCOUNTER 2021-11-30 08:25 | Emergency (ER) | payer MEDICARE ==
[~2021-11-30] VITALS: Ht 180.3 cm; Wt 108.4 kg
[~2021-11-30 08:25] MED LIST changes: -BUPRENORPHINE1 EACH TD; -CIMETIDINE400 M1 PO; -LANTUS SOL100 UNIT/1 SQ
[2021-11-30 08:32] VITALS: BP 124/70
[2021-11-30] MEDS ORDERED: CIMETIDINE400 M1 PO (08:37)
[2021-11-30] MEDS ORDERED: BUPRENORPHINE1 EACH TD (08:38)
[2021-11-30] MEDS ORDERED: LANTUS SOL100 UNIT/1 SQ (08:38)
[2021-11-30 09:07] LABS: BASO % 0.6 % (0.0-1.0); EOS # 0.2 10*3/uL (0.0-0.4); EOS % 3.5 % (1.0-4.0); HEMATOCRIT 25.6 % (42.0-52.0); LYMPH % 29.3 % (27.0-41.0); MEAN CORPUSCULAR HGB 28.6 pg (27.0-31.0); MEAN CORPUSCULAR HGB CONC 33.6 g/dl (33.0-37.0); MEAN PLATELET VOLUME 10.2 fl (9.6-12.3); MONO # 0.9 10*3/uL (0.1-1.0); MONO % 13.8 % (3.0-9.0); NEUT # 3.5 10*3/uL (2.3-7.9); NEUT % 52.5 % (47.0-73.0); PLATELET COUNT AUTOMATED 204 10*3/uL (130-400); RED BLOOD COUNT 3.01 10*6/uL (4.50-5.90); RED CELL DISTRI WIDTH 12.9 % (0-14.5); WHITE BLOOD COUNT 6.7 10*3/uL (4.8-10.8)
[2021-11-30 09:18] LABS: ACT PARTIAL THROMBO TIME 25.8 SECONDS (20.0-32.1)
[2021-11-30 09:27] LABS: CREATININE 5.25 mg/dL (0.70-1.30); TOTAL PROTEIN 6.3 gm/dL (6.4-8.2)
[2021-11-30] MEDS ORDERED: ZITHROMAX250 MG PO (11:08)
== END 2021-11-30 11:36 | disposition home or self-care (01) ==
LOC: ED 08:25
PROVIDERS: Emergency Medicine
DX: J20.9 Acute bronchitis, unspecified (principal); Z88.8 Allergy status to other drugs, medicaments and biological substances; Z79.899 Other long term (current) drug therapy

== ENCOUNTER 2022-01-14 21:03 | Emergency (ER) | payer MEDICARE ==
[~2022-01-14] VITALS: Ht 180.3 cm; Wt 103.0 kg
[~2022-01-14 21:03] MED LIST changes: +BUPRENORPHINE1 EACH TD; +CIMETIDINE400 M1 PO; +LANTUS SOL100 UNIT/1 SQ
[2022-01-14 21:14] VITALS: BP 137/94
[2022-01-15] MEDS ORDERED: CYCLOBENZAPRINE10 MG PO (00:33)
[2022-01-15] MEDS ORDERED: PREDNISONE20 M1 PO ×2 (00:33)
[2022-01-15] MEDS ORDERED: HYDROCODON-ACE1 EACH PO (00:33)
[2022-01-15] MEDS ORDERED: HYDROCODONE-AC1 EAC1 PO (11:05)
== END 2022-01-15 00:51 | disposition home or self-care (01) ==
LOC: ED 21:03
DX: M54.16 Radiculopathy, lumbar region (principal); M54.42 Lumbago with sciatica, left side; F17.200 Nicotine dependence, unspecified, uncomplicated; Z88.8 Allergy status to other drugs, medicaments and biological substances; Z79.899 Other long term (current) drug therapy

== ENCOUNTER 2022-01-26 23:53 | Emergency (ER) | payer OTHER ==
[~2022-01-26] VITALS: Ht 180.3 cm; Wt 105.0 kg
[~2022-01-26 23:53] MED LIST changes: +AMITRIPTYLINE25 MG PO; +APRESOLINE25 MG PO; +HYDROCODON-ACE1 EACH PO; +HYDROCODONE-AC1 EAC1 PO; +MINOXIDIL2.5 MG PO; +PREDNISONE10 MG PO
[2022-01-26 23:55] VITALS: BP 150/80
== END 2022-01-27 03:52 | disposition home or self-care (01) ==
LOC: ED 23:53
DX: M54.41 Lumbago with sciatica, right side (principal)

== ENCOUNTER 2022-01-28 10:59 | Emergency (ER) | payer OTHER ==
[~2022-01-28] VITALS: Ht 180.3 cm; Wt 97.5 kg
[2022-01-28 11:05] VITALS: BP 180/101
== END 2022-01-28 11:49 | disposition home or self-care (01) ==
LOC: ED 10:59
DX: G89.29 Other chronic pain (principal); M54.50 Low back pain, unspecified; F17.200 Nicotine dependence, unspecified, uncomplicated

== ENCOUNTER 2022-01-30 19:05 | Inpatient (IN) | payer OTHER ==
[~2022-01-30] VITALS: Ht 180.3 cm; Wt 100.0 kg
[2022-01-30 19:16] VITALS: BP 193/97
[2022-01-30 20:42] LABS: BASO % 0.1 % (0.0-1.0); EOS # 0.1 10*3/uL (0.0-0.4); EOS % 0.6 % (1.0-4.0); HEMATOCRIT 28.6 % (42.0-52.0); LYMPH # 2.2 10*3/uL (1.3-4.4); LYMPH % 15.3 % (27.0-41.0); MEAN CORPUSCULAR HGB 29.2 pg (27.0-31.0); MEAN CORPUSCULAR HGB CONC 33.2 g/dl (33.0-37.0); MEAN PLATELET VOLUME 9.8 fl (9.6-12.3); MONO # 0.9 10*3/uL (0.1-1.0); MONO % 6.4 % (3.0-9.0); PLATELET COUNT AUTOMATED 252 10*3/uL (130-400); RED BLOOD COUNT 3.25 10*6/uL (4.50-5.90); RED CELL DISTRI WIDTH 13.1 % (0-14.5); WHITE BLOOD COUNT 14.2 10*3/uL (4.8-10.8)
[2022-01-30 20:46] VITALS: BP 195/95
[2022-01-30 20:53] LABS: ACT PARTIAL THROMBO TIME 25.6 SECONDS (20.0-32.1); INTERNATIONAL NORM RATIO 0.9 (2.0-3.5)
[2022-01-30 20:59] LABS: CREATININE 8.13 mg/dL (0.70-1.30); POTASSIUM 4.1 mmol/L (3.5-5.1); TOTAL PROTEIN 6.4 gm/dL (6.4-8.2)
[2022-01-30 21:37] VITALS: BP 175/94
[2022-01-30 23:18] VITALS: BP 160/82
[2022-01-31] VITALS (10 sets, daily range): BP systolic 121–198; BP diastolic 62–106
[2022-01-31 03:24] LABS: BILIRUBIN Negative (Negative); BLOOD Negative (Negative); CLARITY Clear (Clear); COLOR Yellow (Yellow); GLUCOSE 2+ (Negative); KETONE Negative (Negative); LEUKO ESTERASE Negative (Negative); NITRITE Negative (Negative); SPECIFIC GRAVITY 1.015 (1.001-1.030); UROBILINOGEN 0.2 E.U./dl (0.0-1.0)
[2022-01-31 03:33] LABS: URINE AMPHETAMINES < 1000 (1000ng/ml); URINE BARBITURATES < 200 (200ng/ml); URINE BENZODIAZEPINES < 200 (200ng/ml); URINE CANNABINOIDS (THC) < 50 (50ng/ml); URINE COCAINE < 300 (300ng/ml); URINE METHADONE < 300 (300ng/ml); URINE OPIATES > 300 (300ng/ml)
[2022-01-31 03:36] LABS: URINE PHENCYCLIDINE < 25 (25ng/ml)
[2022-01-31 05:27] LABS: CREATININE 8.4 mg/dL (0.70-1.30); POTASSIUM 4.5 mmol/L (3.5-5.1); TOTAL PROTEIN 6.7 gm/dL (6.4-8.2)
[2022-01-31 05:34] LABS: FREE T4 1.16 ng/dl (0.76-1.46); THYROID STIM HORMONE (HS) 1.44 uIU/ml (0.358-4.75)
[2022-01-31 06:04] LABS: HEMATOCRIT 30.1 % (42.0-52.0); MEAN CORPUSCULAR HGB 29.2 pg (27.0-31.0); MEAN CORPUSCULAR HGB CONC 33.6 g/dl (33.0-37.0); MEAN PLATELET VOLUME 10.4 fl (9.6-12.3); PLATELET COUNT AUTOMATED 278 10*3/uL (130-400); RED BLOOD COUNT 3.46 10*6/uL (4.50-5.90); RED CELL DISTRI WIDTH 13.2 % (0-14.5); WHITE BLOOD COUNT 17.8 10*3/uL (4.8-10.8)
[2022-01-31 06:06] LABS: MANUAL DIFF REFLEX YES
[2022-01-31 06:11] LABS: INTERNATIONAL NORM RATIO 0.9 (2.0-3.5)
[2022-01-31 06:44] LABS: BASOPHILS 1 % (0-1); TOTAL CELLS COUNTED 100 #CELLS
[2022-01-31 06:45] LABS: PLATELET SUFFICIENCY NORMAL (NORMAL); POLYCHROMASIA SLIGHT; ROULEAUX SLIGHT; TOXIC GRANULATION SLIGHT
[2022-02-01] VITALS: BP 164/90; BP 177/89
[2022-02-01 06:10] LABS: CREATININE 5.68 mg/dL (0.70-1.30); POTASSIUM 4.3 mmol/L (3.5-5.1)
[2022-02-01 06:26] LABS: HEMATOCRIT 28.6 % (42.0-52.0); MEAN CELL VOLUME 85.6 fl (80.0-94.0); MEAN CORPUSCULAR HGB CONC 33.9 g/dl (33.0-37.0); MEAN PLATELET VOLUME 10.3 fl (9.6-12.3); PLATELET COUNT AUTOMATED 273 10*3/uL (130-400); RED BLOOD COUNT 3.34 10*6/uL (4.50-5.90); WHITE BLOOD COUNT 11.7 10*3/uL (4.8-10.8)
[2022-02-01 06:32] LABS: MANUAL DIFF REFLEX YES
[2022-02-01 07:17] LABS: BURR CELLS FEW; PLATELET SUFFICIENCY NORMAL (NORMAL); ROULEAUX SLIGHT; TOTAL CELLS COUNTED 100 #CELLS
[2022-02-01 07:18] LABS: OVALOCYTES FEW; POLYCHROMASIA SLIGHT; TOXIC GRANULATION SLIGHT
[2022-02-01 08:00] VITALS: BP 162/92
[2022-02-01 12:00] VITALS: BP 169/89
[2022-02-01 15:58] VITALS: BP 162/79
[2022-02-01 20:00] VITALS: BP 182/87
[2022-02-02] VITALS: BP 190/88
[2022-02-02 04:00] VITALS: BP 180/86
[2022-02-02 06:22] LABS: HEMATOCRIT 28.3 % (42.0-52.0); MEAN CELL VOLUME 86.5 fl (80.0-94.0); MEAN CORPUSCULAR HGB 29.4 pg (27.0-31.0); MEAN CORPUSCULAR HGB CONC 33.9 g/dl (33.0-37.0); MEAN PLATELET VOLUME 10.6 fl (9.6-12.3); PLATELET COUNT AUTOMATED 299 10*3/uL (130-400); RED BLOOD COUNT 3.27 10*6/uL (4.50-5.90); WHITE BLOOD COUNT 11.9 10*3/uL (4.8-10.8)
[2022-02-02 06:30] LABS: CREATININE 7.22 mg/dL (0.70-1.30); POTASSIUM 4.6 mmol/L (3.5-5.1)
[2022-02-02 06:40] LABS: MANUAL DIFF REFLEX YES
[2022-02-02 07:06] LABS: PLATELET SUFFICIENCY NORMAL (NORMAL); TOTAL CELLS COUNTED 100 #CELLS; TOXIC GRANULATION SLIGHT
[2022-02-02 07:07] LABS: OVALOCYTES FEW; ROULEAUX SLIGHT
[2022-02-02 12:00] VITALS: BP 156/80
[2022-02-02 13:06] LABS: ANTICARDIOLIPIN AB, IGG, QN <9 GPL U/mL (0-14); ANTICARDIOLIPIN AB, IGM, QN <9 MPL U/mL (0-12); CARDIOLIPIN AB IGA <9 APL U/mL (0-11)
[2022-02-02 16:00] VITALS: BP 158/82
[2022-02-02 17:06] LABS: ATYPICAL PANCA <1:20 titer (Neg:<1:20)
[2022-02-02 20:00] VITALS: BP 173/84
[2022-02-03] VITALS (9 sets, daily range): BP systolic 138–187; BP diastolic 72–93
[2022-02-03 06:40] LABS: HEMATOCRIT 29.4 % (42.0-52.0); MEAN CELL VOLUME 86.5 fl (80.0-94.0); MEAN CORPUSCULAR HGB 29.4 pg (27.0-31.0); MEAN PLATELET VOLUME 10.3 fl (9.6-12.3); PLATELET COUNT AUTOMATED 305 10*3/uL (130-400); RED CELL DISTRI WIDTH 12.8 % (0-14.5); WHITE BLOOD COUNT 12.2 10*3/uL (4.8-10.8)
[2022-02-03 06:44] LABS: MANUAL DIFF REFLEX YES
[2022-02-03 06:54] LABS: CREATININE 5.26 mg/dL (0.70-1.30); POTASSIUM 4.4 mmol/L (3.5-5.1); TOTAL PROTEIN 6.2 gm/dL (6.4-8.2)
[2022-02-03 08:03] LABS: PLATELET SUFFICIENCY NORMAL (NORMAL); TOTAL CELLS COUNTED 100 #CELLS
[2022-02-03 14:08] LABS: BETA-2 GLYCOPROTEIN I AB,IGA <9 (0-25); BETA-2 GLYCOPROTEIN I AB,IGG <9 (0-20); BETA-2 GLYCOPROTEIN I AB,IGM <9 (0-32)
[2022-02-04] VITALS: BP 190/94
[2022-02-04 06:26] LABS: HEMATOCRIT 29.1 % (42.0-52.0); MEAN CELL VOLUME 86.4 fl (80.0-94.0); MEAN CORPUSCULAR HGB 28.8 pg (27.0-31.0); MEAN CORPUSCULAR HGB CONC 33.3 g/dl (33.0-37.0); MEAN PLATELET VOLUME 10.6 fl (9.6-12.3); PLATELET COUNT AUTOMATED 322 10*3/uL (130-400); RED BLOOD COUNT 3.37 10*6/uL (4.50-5.90); RED CELL DISTRI WIDTH 12.6 % (0-14.5); WHITE BLOOD COUNT 10.4 10*3/uL (4.8-10.8)
[2022-02-04 06:33] LABS: POTASSIUM 4.2 mmol/L (3.5-5.1)
[2022-02-04 06:34] LABS: MANUAL DIFF REFLEX YES
[2022-02-04 06:40] LABS: CREATININE 6.55 mg/dL (0.70-1.30); TOTAL PROTEIN 6.2 gm/dL (6.4-8.2)
[2022-02-04 06:59] LABS: TOTAL CELLS COUNTED 100 #CELLS
[2022-02-04 07:00] LABS: PLATELET SUFFICIENCY NORMAL (NORMAL)
[2022-02-04 08:00] VITALS: BP 166/98
[2022-02-04 12:00] VITALS: BP 159/65
[2022-02-04 16:00] VITALS: BP 162/94
[2022-02-04 20:00] VITALS: BP 153/72
[2022-02-05] VITALS: BP 201/92
[2022-02-05 01:20] VITALS: BP 178/83
[2022-02-05 01:24] VITALS: BP 172/83
[2022-02-05 06:08] LABS: POTASSIUM 4.4 mmol/L (3.5-5.1)
[2022-02-05 06:13] LABS: CREATININE 4.62 mg/dL (0.70-1.30)
[2022-02-05 06:24] LABS: BASO % 0.1 % (0.0-1.0); HEMATOCRIT 28.6 % (42.0-52.0); LYMPH # 0.9 10*3/uL (1.3-4.4); LYMPH % 7.3 % (27.0-41.0); MEAN CELL VOLUME 87.7 fl (80.0-94.0); MEAN CORPUSCULAR HGB 29.4 pg (27.0-31.0); MEAN CORPUSCULAR HGB CONC 33.6 g/dl (33.0-37.0); MEAN PLATELET VOLUME 10.4 fl (9.6-12.3); MONO # 0.5 10*3/uL (0.1-1.0); MONO % 4.1 % (3.0-9.0); NEUT # 10.4 10*3/uL (2.3-7.9); NEUT % 87.7 % (47.0-73.0); PLATELET COUNT AUTOMATED 304 10*3/uL (130-400); RED BLOOD COUNT 3.26 10*6/uL (4.50-5.90); RED CELL DISTRI WIDTH 12.6 % (0-14.5); WHITE BLOOD COUNT 11.8 10*3/uL (4.8-10.8)
[2022-02-05 08:00] VITALS: BP 150/77
== END 2022-02-05 13:41 | DRG 64 ==
LOC: ED 19:05 → EDHOLD 23:40 → 4E 23:40
PROVIDERS: Emergency Medicine; Family Medicine; Internal Medicine; Student in an Organized Health Care Education/Training Program; ADMIT Student in an Organized Health Care Education/Training Program; ATTEND Student in an Organized Health Care Education/Training Program
DX: I63.9 Cerebral infarction, unspecified (principal); N18.6 End stage renal disease; E44.0 Moderate protein-calorie malnutrition; I12.0 Hypertensive chronic kidney disease with stage 5 chronic kidney disease or end stage renal disease; R29.90 Unspecified symptoms and signs involving the nervous system; R29.898 Other symptoms and signs involving the musculoskeletal system; R20.0 Anesthesia of skin; D64.9 Anemia, unspecified; E11.22 Type 2 diabetes mellitus with diabetic chronic kidney disease; G89.29 Other chronic pain; M54.50 Low back pain, unspecified; M54.16 Radiculopathy, lumbar region; E11.65 Type 2 diabetes mellitus with hyperglycemia; D72.829 Elevated white blood cell count, unspecified; E83.41 Hypermagnesemia; F17.210 Nicotine dependence, cigarettes, uncomplicated; E11.3299 Type 2 diabetes mellitus with mild nonproliferative diabetic retinopathy without macular edema, unspecified eye; E66.9 Obesity, unspecified; I16.0 Hypertensive urgency; Z99.2 Dependence on renal dialysis; Z88.8 Allergy status to other drugs, medicaments and biological substances; Z83.3 Family history of diabetes mellitus; Z82.49 Family history of ischemic heart disease and other diseases of the circulatory system; Z79.4 Long term (current) use of insulin; Z79.82 Long term (current) use of aspirin; Z79.899 Other long term (current) drug therapy; Z87.81 Personal history of (healed) traumatic fracture; Z71.6 Tobacco abuse counseling; Z68.31 Body mass index [BMI] 31.0-31.9, adult

== ENCOUNTER 2022-02-05 16:47 | Inpatient (IN) | payer OTHER ==
[~2022-02-05] VITALS: Ht 180.3 cm; Wt 102.1 kg
[2022-02-05 16:53] VITALS: BP 148/74
[2022-02-05 18:37] VITALS: BP 162/83
[2022-02-05 23:19] VITALS: BP 172/90
[2022-02-05 23:20] VITALS: BP 168/80
[2022-02-06 06:13] LABS: BASO % 0.1 % (0.0-1.0); EOS # 0.1 10*3/uL (0.0-0.4); EOS % 0.7 % (1.0-4.0); HEMATOCRIT 28.8 % (42.0-52.0); LYMPH # 2.7 10*3/uL (1.3-4.4); LYMPH % 23.9 % (27.0-41.0); MEAN CELL VOLUME 88.3 fl (80.0-94.0); MEAN CORPUSCULAR HGB 28.8 pg (27.0-31.0); MEAN CORPUSCULAR HGB CONC 32.6 g/dl (33.0-37.0); MEAN PLATELET VOLUME 10.3 fl (9.6-12.3); MONO # 0.8 10*3/uL (0.1-1.0); MONO % 6.8 % (3.0-9.0); NEUT # 7.7 10*3/uL (2.3-7.9); PLATELET COUNT AUTOMATED 267 10*3/uL (130-400); RED BLOOD COUNT 3.26 10*6/uL (4.50-5.90); RED CELL DISTRI WIDTH 12.7 % (0-14.5); WHITE BLOOD COUNT 11.3 10*3/uL (4.8-10.8)
[2022-02-06 06:32] LABS: CREATININE 6.32 mg/dL (0.70-1.30); POTASSIUM 4.1 mmol/L (3.5-5.1); TOTAL PROTEIN 5.6 gm/dL (6.4-8.2)
[2022-02-06 08:00] VITALS: BP 189/90
[2022-02-06 12:00] VITALS: BP 141/72
[2022-02-06 15:30] VITALS: BP 155/74
[2022-02-06 20:00] VITALS: BP 169/93
[2022-02-07] VITALS: BP 178/83
[2022-02-07 04:59] LABS: CREATININE 7.4 mg/dL (0.70-1.30); POTASSIUM 4.6 mmol/L (3.5-5.1)
[2022-02-07 08:00] VITALS: BP 127/73
[2022-02-07 12:00] VITALS: BP 149/75
[2022-02-07 16:00] VITALS: BP 156/71
[2022-02-07 20:00] VITALS: BP 141/73; BP 156/74
[2022-02-08] VITALS: BP 164/78
[2022-02-08 04:00] VITALS: BP 160/84
[2022-02-08 05:14] LABS: CREATININE 4.87 mg/dL (0.70-1.30)
[2022-02-08 06:03] LABS: EOS % 0.1 % (1.0-4.0); LYMPH # 1.5 10*3/uL (1.3-4.4); LYMPH % 15.9 % (27.0-41.0); MEAN CELL VOLUME 88.8 fl (80.0-94.0); MEAN CORPUSCULAR HGB 29.6 pg (27.0-31.0); MEAN CORPUSCULAR HGB CONC 33.3 g/dl (33.0-37.0); MEAN PLATELET VOLUME 10.7 fl (9.6-12.3); MONO # 0.6 10*3/uL (0.1-1.0); MONO % 6.7 % (3.0-9.0); NEUT # 7.2 10*3/uL (2.3-7.9); NEUT % 75.9 % (47.0-73.0); PLATELET COUNT AUTOMATED 260 10*3/uL (130-400); RED BLOOD COUNT 3.04 10*6/uL (4.50-5.90); RED CELL DISTRI WIDTH 12.9 % (0-14.5); WHITE BLOOD COUNT 9.5 10*3/uL (4.8-10.8)
[2022-02-08 08:00] VITALS: BP 158/82
[2022-02-08 12:00] VITALS: BP 146/81
== END 2022-02-08 16:17 | DRG 551 ==
LOC: ED 16:47 → EDHOLD 17:27 → 4E 17:27 → EDHOLD 18:25 → 4E 22:36
PROVIDERS: Family Medicine; Student in an Organized Health Care Education/Training Program; ADMIT Internal Medicine; ATTEND Internal Medicine
DX: M54.9 Dorsalgia, unspecified (principal); N18.6 End stage renal disease; E44.0 Moderate protein-calorie malnutrition; I12.0 Hypertensive chronic kidney disease with stage 5 chronic kidney disease or end stage renal disease; E66.9 Obesity, unspecified; R53.1 Weakness; D64.9 Anemia, unspecified; E11.65 Type 2 diabetes mellitus with hyperglycemia; M51.27 Other intervertebral disc displacement, lumbosacral region; E83.41 Hypermagnesemia; M54.31 Sciatica, right side; M54.32 Sciatica, left side; R29.6 Repeated falls; Z20.822 Contact with and (suspected) exposure to COVID-19; E11.22 Type 2 diabetes mellitus with diabetic chronic kidney disease; Z99.2 Dependence on renal dialysis; Z79.4 Long term (current) use of insulin; Z88.8 Allergy status to other drugs, medicaments and biological substances; Z86.73 Personal history of transient ischemic attack (TIA), and cerebral infarction without residual deficits; Z87.81 Personal history of (healed) traumatic fracture; Z83.3 Family history of diabetes mellitus; Z82.49 Family history of ischemic heart disease and other diseases of the circulatory system; Z68.31 Body mass index [BMI] 31.0-31.9, adult

== ENCOUNTER 2022-02-10 02:45 | Emergency (ER) | payer OTHER ==
[~2022-02-10] VITALS: Ht 175.2 cm; Wt 86.2 kg
[2022-02-10 02:47] VITALS: BP 135/81
== END 2022-02-10 03:58 ==
LOC: ED 02:45
DX: M54.50 Low back pain, unspecified (principal); Z88.8 Allergy status to other drugs, medicaments and biological substances

== ENCOUNTER 2022-02-16 01:42 | Emergency (ER) | payer OTHER ==
[2022-02-16 01:43] VITALS: BP 174/92
== END 2022-02-16 06:42 | disposition home or self-care (01) ==
LOC: ED 01:42
DX: M54.42 Lumbago with sciatica, left side (principal); Z88.8 Allergy status to other drugs, medicaments and biological substances; I10 Essential (primary) hypertension; E66.9 Obesity, unspecified; Z87.891 Personal history of nicotine dependence

== ENCOUNTER 2022-04-01 12:22 | Emergency (ER) | payer OTHER ==
[~2022-04-01] VITALS: Ht 180.3 cm; Wt 94.8 kg
[2022-04-01 15:13] LABS: BASO % 0.4 % (0.0-1.0); EOS # 0.1 10*3/uL (0.0-0.4); EOS % 1.4 % (1.0-4.0); HEMATOCRIT 26.8 % (42.0-52.0); LYMPH # 0.9 10*3/uL (1.3-4.4); LYMPH % 10.4 % (27.0-41.0); MEAN CELL VOLUME 84.5 fl (80.0-94.0); MEAN CORPUSCULAR HGB 28.7 pg (27.0-31.0); MEAN PLATELET VOLUME 9.3 fl (9.6-12.3); MONO # 0.2 10*3/uL (0.1-1.0); MONO % 2.7 % (3.0-9.0); NEUT % 84.9 % (47.0-73.0); PLATELET COUNT AUTOMATED 228 10*3/uL (130-400); RED BLOOD COUNT 3.17 10*6/uL (4.50-5.90); WHITE BLOOD COUNT 8.3 10*3/uL (4.8-10.8)
[2022-04-01 15:33] LABS: CREATININE 3.31 mg/dL (0.70-1.30); POTASSIUM 3.8 mmol/L (3.5-5.1); TOTAL PROTEIN 7.8 gm/dL (6.4-8.2)
[2022-04-04 08:54] LABS: BASO # 0.1 10*3/uL (0.0-0.1); BASO % 0.7 % (0.0-1.0); EOS # 0.3 10*3/uL (0.0-0.4); EOS % 4.1 % (1.0-4.0); HEMATOCRIT 27.5 % (42.0-52.0); LYMPH # 2.4 10*3/uL (1.3-4.4); LYMPH % 34.8 % (27.0-41.0); MEAN CELL VOLUME 85.7 fl (80.0-94.0); MEAN CORPUSCULAR HGB CONC 32.7 g/dl (33.0-37.0); MEAN PLATELET VOLUME 9.3 fl (9.6-12.3); MONO # 0.5 10*3/uL (0.1-1.0); MONO % 6.9 % (3.0-9.0); NEUT # 3.7 10*3/uL (2.3-7.9); NEUT % 53.4 % (47.0-73.0); PLATELET COUNT AUTOMATED 254 10*3/uL (130-400); RED BLOOD COUNT 3.21 10*6/uL (4.50-5.90); RED CELL DISTRI WIDTH 13.8 % (0-14.5); WHITE BLOOD COUNT 6.8 10*3/uL (4.8-10.8)
[2022-04-04 09:12] LABS: CREATININE 7.11 mg/dL (0.70-1.30); POTASSIUM 4.4 mmol/L (3.5-5.1); TOTAL PROTEIN 6.9 gm/dL (6.4-8.2)
[2022-04-04 12:30] VITALS: BP 168/88
== END 2022-04-04 16:10 | disposition short-term general hospital (02) ==
LOC: ED 12:22
PROVIDERS: Emergency Medicine; Physician Assistant
DX: M46.47 Discitis, unspecified, lumbosacral region (principal); M86.9 Osteomyelitis, unspecified; F17.200 Nicotine dependence, unspecified, uncomplicated; Z88.8 Allergy status to other drugs, medicaments and biological substances; Z79.899 Other long term (current) drug therapy; Z79.4 Long term (current) use of insulin; Z98.890 Other specified postprocedural states

== ENCOUNTER 2022-05-27 06:57 | Emergency (ER) | payer OTHER ==
[~2022-05-27] VITALS: Ht 177.8 cm; Wt 104.3 kg
[2022-05-27 07:19] VITALS: BP 160/80
[2022-05-27 07:58] LABS: BASO # 0.1 10*3/uL (0.0-0.1); BASO % 0.7 % (0.0-1.0); EOS # 0.2 10*3/uL (0.0-0.4); EOS % 2.6 % (1.0-4.0); HEMATOCRIT 24.2 % (42.0-52.0); LYMPH # 2.2 10*3/uL (1.3-4.4); LYMPH % 31.5 % (27.0-41.0); MEAN CELL VOLUME 85.5 fl (80.0-94.0); MEAN CORPUSCULAR HGB CONC 35.1 g/dl (33.0-37.0); MEAN PLATELET VOLUME 9.3 fl (9.6-12.3); MONO # 0.6 10*3/uL (0.1-1.0); MONO % 8.7 % (3.0-9.0); NEUT # 3.9 10*3/uL (2.3-7.9); NEUT % 56.1 % (47.0-73.0); PLATELET COUNT AUTOMATED 215 10*3/uL (130-400); RED BLOOD COUNT 2.83 10*6/uL (4.50-5.90); RED CELL DISTRI WIDTH 14.6 % (0-14.5)
[2022-05-27 08:12] LABS: ACT PARTIAL THROMBO TIME 23.9 SECONDS (20.0-32.1)
[2022-05-27 08:20] LABS: CREATININE 6.63 mg/dL (0.70-1.30); POTASSIUM 4.3 mmol/L (3.5-5.1); TOTAL PROTEIN 6.8 gm/dL (6.4-8.2)
== END 2022-05-27 12:45 | disposition home or self-care (01) ==
LOC: ED 06:57
PROVIDERS: Family Medicine
DX: M46.46 Discitis, unspecified, lumbar region (principal); G89.29 Other chronic pain; Z88.8 Allergy status to other drugs, medicaments and biological substances; Z87.891 Personal history of nicotine dependence

== ENCOUNTER 2022-06-06 07:21 | Emergency (ER) | payer OTHER ==
[~2022-06-06] VITALS: Ht 180.3 cm; Wt 89.8 kg
[2022-06-06 07:30] VITALS: BP 134/58
[2022-06-06] MEDS ORDERED: LANTUS SOL100 UNIT/1 SC (07:36)
[2022-06-06] MEDS ORDERED: PREDNISONE10 MG PO (08:01)
[2022-06-06] MEDS ORDERED: CYCLOBENZAPRINE10 MG PO (08:01)
== END 2022-06-06 07:58 | disposition home or self-care (01) ==
LOC: ED 07:21
DX: M54.9 Dorsalgia, unspecified (principal); Z88.8 Allergy status to other drugs, medicaments and biological substances; Z79.899 Other long term (current) drug therapy; Z87.891 Personal history of nicotine dependence

== ENCOUNTER 2023-01-19 15:31 | Emergency (ER) | payer OTHER ==
[2023-01-19] VITALS (8 sets, daily range): BP systolic 171–227; BP diastolic 84–112
[~2023-01-19] VITALS: Wt 91.2 kg
[~2023-01-19 15:31] MED LIST changes: +CEFTRIAXON1 GM/50 ML IV; +LANTUS SOL100 UNIT/1 SC; +PANTOPRAZOLE SO40 MG PO; +PREGABALIN75 MG PO; +VANCO 1.51.5 GM/250 IV; +VITAMIN D3125 MC1 PO
[2023-01-19 16:19] LABS: BASO # 0.1 10*3/uL (0.0-0.1); BASO % 0.7 % (0.0-1.0); EOS # 0.1 10*3/uL (0.0-0.4); EOS % 1.7 % (1.0-4.0); LYMPH # 1.6 10*3/uL (1.3-4.4); LYMPH % 22.1 % (27.0-41.0); MEAN CELL VOLUME 91.7 fl (80.0-94.0); MEAN CORPUSCULAR HGB 28.8 pg (27.0-31.0); MEAN CORPUSCULAR HGB CONC 31.4 g/dl (33.0-37.0); MEAN PLATELET VOLUME 9.7 fl (9.6-12.3); MONO # 0.5 10*3/uL (0.1-1.0); MONO % 7.2 % (3.0-9.0); NEUT # 4.8 10*3/uL (2.3-7.9); NEUT % 67.9 % (47.0-73.0); PLATELET COUNT AUTOMATED 335 10*3/uL (130-400); RED BLOOD COUNT 2.29 10*6/uL (4.50-5.90); RED CELL DISTRI WIDTH 13.9 % (0-14.5); WHITE BLOOD COUNT 7.1 10*3/uL (4.8-10.8)
[2023-01-19 16:29] LABS: ACT PARTIAL THROMBO TIME 39.6 SECONDS (20.0-32.1); INTERNATIONAL NORM RATIO 1.4 (2.0-3.5)
[2023-01-19 16:41] LABS: ALKALINE PHOSPHATASE 138 U/L (46-116); CHLORIDE 97 mmol/L (98-107); POTASSIUM 4.1 mmol/L (3.4-5.1); TOTAL PROTEIN 7.7 gm/dL (6.0-8.0)
[2023-01-19 17:08] LABS: BUN 13 mg/dl (9-23); SGPT/ALT < 7 U/L (10-49)
[2023-01-23] MEDS ORDERED: HUMALOG100 UNIT/1 SQ (11:34)
[2023-01-23] MEDS ORDERED: SENNA8.6 MG PO (11:36)
[2023-01-23] MEDS ORDERED: OXYCODONE HCL5 M1 PO (11:36)
== END 2023-01-19 23:27 | disposition home or self-care (01) ==
LOC: ED 15:31
PROVIDERS: Emergency Medicine
DX: D64.9 Anemia, unspecified (principal); M54.9 Dorsalgia, unspecified; N18.6 End stage renal disease; F17.200 Nicotine dependence, unspecified, uncomplicated; Z88.8 Allergy status to other drugs, medicaments and biological substances; Z79.899 Other long term (current) drug therapy; Z79.2 Long term (current) use of antibiotics; Z79.4 Long term (current) use of insulin; Z98.890 Other specified postprocedural states; Z86.73 Personal history of transient ischemic attack (TIA), and cerebral infarction without residual deficits; Z99.2 Dependence on renal dialysis

== ENCOUNTER → 2023-01-23 | Outpatient (CLI) | payer OTHER ==
[2023-01-23] VITALS (7 sets, daily range): BP systolic 151–168; BP diastolic 76–95
[~2023-01-23] MED LIST changes: +HUMALOG100 UNIT/1 SQ; +OXYCODONE HCL5 M1 PO; +SENNA8.6 MG PO
== END | disposition home or self-care (01) ==
LOC: TRNFUSION 03:16
PROVIDERS: ATTEND Internal Medicine
DX: D64.9 Anemia, unspecified (principal); E87.5 Hyperkalemia; K21.9 Gastro-esophageal reflux disease without esophagitis; I12.0 Hypertensive chronic kidney disease with stage 5 chronic kidney disease or end stage renal disease; E11.22 Type 2 diabetes mellitus with diabetic chronic kidney disease; E11.319 Type 2 diabetes mellitus with unspecified diabetic retinopathy without macular edema; E11.40 Type 2 diabetes mellitus with diabetic neuropathy, unspecified; N18.6 End stage renal disease; Z99.2 Dependence on renal dialysis

== ENCOUNTER → 2023-02-07 | Outpatient (CLI) | payer OTHER ==
[2023-02-07] VITALS (7 sets, daily range): BP systolic 171–194; BP diastolic 44–76
== END | disposition home or self-care (01) ==
LOC: TRNFUSION 00:35
PROVIDERS: ATTEND Internal Medicine
DX: D64.9 Anemia, unspecified (principal); K21.9 Gastro-esophageal reflux disease without esophagitis; I12.0 Hypertensive chronic kidney disease with stage 5 chronic kidney disease or end stage renal disease; E11.22 Type 2 diabetes mellitus with diabetic chronic kidney disease; E11.69 Type 2 diabetes mellitus with other specified complication; E11.319 Type 2 diabetes mellitus with unspecified diabetic retinopathy without macular edema; E11.40 Type 2 diabetes mellitus with diabetic neuropathy, unspecified; M86.9 Osteomyelitis, unspecified; N18.6 End stage renal disease; G89.29 Other chronic pain; M54.50 Low back pain, unspecified; Z87.891 Personal history of nicotine dependence; Z99.2 Dependence on renal dialysis

== ENCOUNTER 2023-06-07 17:29 | Emergency (ER) | payer OTHER ==
[~2023-06-07] VITALS: Wt 93.0 kg
[2023-06-07 19:15] VITALS: BP 170/93
[2023-06-07] MEDS ORDERED: VIBRAMYCIN100 MG PO (20:47)
[2023-06-07] MEDS ORDERED: AMOX-CLAV 875-1 EACH PO (20:47)
== END 2023-06-07 20:56 | disposition home or self-care (01) ==
LOC: ED 17:29
DX: J18.9 Pneumonia, unspecified organism (principal); F31.9 Bipolar disorder, unspecified; D64.9 Anemia, unspecified; E11.22 Type 2 diabetes mellitus with diabetic chronic kidney disease; I12.0 Hypertensive chronic kidney disease with stage 5 chronic kidney disease or end stage renal disease; N18.6 End stage renal disease; E11.649 Type 2 diabetes mellitus with hypoglycemia without coma; E87.1 Hypo-osmolality and hyponatremia; E11.40 Type 2 diabetes mellitus with diabetic neuropathy, unspecified; Z88.8 Allergy status to other drugs, medicaments and biological substances; Z98.890 Other specified postprocedural states; F17.200 Nicotine dependence, unspecified, uncomplicated; Z20.822 Contact with and (suspected) exposure to COVID-19

== ENCOUNTER 2023-06-30 07:07 | Emergency (ER) | payer OTHER ==
[~2023-06-30] VITALS: Ht 180.3 cm; Wt 98.0 kg
[~2023-06-30 07:07] MED LIST changes: +AMOX-CLAV 875-1 EACH PO; +VIBRAMYCIN100 MG PO
[2023-06-30 07:25] VITALS: BP 122/70
[2023-06-30 07:59] LABS: BASO # 0.1 10*3/uL (0.0-0.1); BASO % 0.8 % (0.0-1.0); EOS # 0.2 10*3/uL (0.0-0.4); EOS % 2.2 % (1.0-4.0); HEMATOCRIT 36.7 % (42.0-52.0); LYMPH # 2.7 10*3/uL (1.3-4.4); LYMPH % 35.2 % (27.0-41.0); MEAN CELL VOLUME 94.8 fl (80.0-94.0); MEAN CORPUSCULAR HGB 31.3 pg (27.0-31.0); MEAN PLATELET VOLUME 10.6 fl (9.6-12.3); MONO # 0.6 10*3/uL (0.1-1.0); MONO % 7.7 % (3.0-9.0); NEUT # 4.1 10*3/uL (2.3-7.9); NEUT % 53.7 % (47.0-73.0); PLATELET COUNT AUTOMATED 213 10*3/uL (130-400); RED BLOOD COUNT 3.87 10*6/uL (4.50-5.90); RED CELL DISTRI WIDTH 15.6 % (0-14.5); WHITE BLOOD COUNT 7.6 10*3/uL (4.8-10.8)
[2023-06-30 08:21] LABS: POTASSIUM 4.1 mmol/L (3.4-5.1); TOTAL PROTEIN 6.9 gm/dL (6.0-8.0)
[2023-06-30] MEDS ORDERED: LEVOFLOXACIN500 MG PO (10:10)
[2023-06-30] MEDS ORDERED: PROVENTIL HFA6.7 GM INH (10:18)
== END 2023-06-30 12:09 | disposition home or self-care (01) ==
LOC: ED 07:07
PROVIDERS: Emergency Medicine
DX: J18.9 Pneumonia, unspecified organism (principal); N18.6 End stage renal disease; E78.5 Hyperlipidemia, unspecified; E11.22 Type 2 diabetes mellitus with diabetic chronic kidney disease; I12.0 Hypertensive chronic kidney disease with stage 5 chronic kidney disease or end stage renal disease; D64.9 Anemia, unspecified; E87.1 Hypo-osmolality and hyponatremia; Z99.2 Dependence on renal dialysis; F31.9 Bipolar disorder, unspecified; Z88.8 Allergy status to other drugs, medicaments and biological substances; Z98.890 Other specified postprocedural states; F17.200 Nicotine dependence, unspecified, uncomplicated

== ENCOUNTER 2023-07-09 20:09 | Emergency (ER) | payer OTHER ==
[~2023-07-09] VITALS: Ht 180.3 cm; Wt 2.7 kg
[~2023-07-09 20:09] MED LIST changes: +LEVOFLOXACIN500 MG PO; +PROVENTIL HFA6.7 GM INH
[2023-07-09 22:18] VITALS: BP 183/90
[2023-07-09 22:36] LABS: BASO % 0.5 % (0.0-1.0); EOS # 0.1 10*3/uL (0.0-0.4); EOS % 1.2 % (1.0-4.0); HEMATOCRIT 38.1 % (42.0-52.0); LYMPH # 1.9 10*3/uL (1.3-4.4); LYMPH % 22.7 % (27.0-41.0); MEAN CELL VOLUME 91.8 fl (80.0-94.0); MEAN CORPUSCULAR HGB 31.6 pg (27.0-31.0); MEAN CORPUSCULAR HGB CONC 34.4 g/dl (33.0-37.0); MEAN PLATELET VOLUME 10.3 fl (9.6-12.3); MONO # 0.5 10*3/uL (0.1-1.0); MONO % 5.7 % (3.0-9.0); NEUT # 5.9 10*3/uL (2.3-7.9); NEUT % 69.5 % (47.0-73.0); PLATELET COUNT AUTOMATED 218 10*3/uL (130-400); RED BLOOD COUNT 4.15 10*6/uL (4.50-5.90); RED CELL DISTRI WIDTH 14.4 % (0-14.5); WHITE BLOOD COUNT 8.5 10*3/uL (4.8-10.8)
[2023-07-09 22:58] LABS: POTASSIUM 4.6 mmol/L (3.4-5.1); TOTAL PROTEIN 7.6 gm/dL (6.0-8.0)
[2023-07-09 23:24] LABS: ACT PARTIAL THROMBO TIME 28.2 SECONDS (20.0-32.1)
[2023-07-09] MEDS ORDERED: PREDNISONE50 MG PO (23:41)
[2023-07-09] MEDS ORDERED: LEVOFLOXACIN500 MG PO (23:41)
== END 2023-07-09 23:48 | disposition home or self-care (01) ==
LOC: ED 20:09
PROVIDERS: Internal Medicine
DX: J40 Bronchitis, not specified as acute or chronic (principal); E11.22 Type 2 diabetes mellitus with diabetic chronic kidney disease; I12.0 Hypertensive chronic kidney disease with stage 5 chronic kidney disease or end stage renal disease; N18.6 End stage renal disease; D64.9 Anemia, unspecified; E83.51 Hypocalcemia; E87.1 Hypo-osmolality and hyponatremia; F31.9 Bipolar disorder, unspecified; Z88.8 Allergy status to other drugs, medicaments and biological substances; Z98.890 Other specified postprocedural states; F17.290 Nicotine dependence, other tobacco product, uncomplicated

== ENCOUNTER 2023-07-11 19:42 | Emergency (ER) | payer OTHER ==
[~2023-07-11] VITALS: Ht 167.6 cm; Wt 83.9 kg
[~2023-07-11 19:42] MED LIST changes: +PREDNISONE50 MG PO
[2023-07-11 20:25] VITALS: BP 146/78
[2023-07-11 22:03] LABS: BASO % 0.3 % (0.0-1.0); EOS # 0.1 10*3/uL (0.0-0.4); EOS % 0.5 % (1.0-4.0); HEMATOCRIT 37.5 % (42.0-52.0); LYMPH # 2.9 10*3/uL (1.3-4.4); LYMPH % 24.2 % (27.0-41.0); MEAN CELL VOLUME 92.8 fl (80.0-94.0); MEAN CORPUSCULAR HGB 32.2 pg (27.0-31.0); MEAN CORPUSCULAR HGB CONC 34.7 g/dl (33.0-37.0); MEAN PLATELET VOLUME 10.6 fl (9.6-12.3); MONO # 0.9 10*3/uL (0.1-1.0); MONO % 7.1 % (3.0-9.0); NEUT % 66.7 % (47.0-73.0); PLATELET COUNT AUTOMATED 227 10*3/uL (130-400); RED BLOOD COUNT 4.04 10*6/uL (4.50-5.90); RED CELL DISTRI WIDTH 14.2 % (0-14.5)
[2023-07-11 22:19] LABS: POTASSIUM 3.8 mmol/L (3.4-5.1); TOTAL PROTEIN 7.3 gm/dL (6.0-8.0)
== END 2023-07-11 23:04 | disposition home or self-care (01) ==
LOC: ED 19:42
PROVIDERS: Nurse Practitioner Family
DX: E11.65 Type 2 diabetes mellitus with hyperglycemia (principal); T38.0X5A Adverse effect of glucocorticoids and synthetic analogues, initial encounter; E11.22 Type 2 diabetes mellitus with diabetic chronic kidney disease; N18.6 End stage renal disease; E46 Unspecified protein-calorie malnutrition; Z99.2 Dependence on renal dialysis; Z88.8 Allergy status to other drugs, medicaments and biological substances; Z79.2 Long term (current) use of antibiotics; Z79.899 Other long term (current) drug therapy; Z79.4 Long term (current) use of insulin; Z98.890 Other specified postprocedural states; Y92.89 Other specified places as the place of occurrence of the external cause

== ENCOUNTER 2023-07-21 17:52 | Emergency (ER) | payer OTHER ==
[~2023-07-21] VITALS: Ht 180.3 cm; Wt 95.0 kg
[2023-07-21 18:22] VITALS: BP 156/92
[2023-07-21 19:46] LABS: BASO % 0.4 % (0.0-1.0); EOS # 0.2 10*3/uL (0.0-0.4); HEMATOCRIT 36.5 % (42.0-52.0); LYMPH # 2.1 10*3/uL (1.3-4.4); LYMPH % 27.8 % (27.0-41.0); MEAN CELL VOLUME 94.8 fl (80.0-94.0); MEAN CORPUSCULAR HGB 31.7 pg (27.0-31.0); MEAN CORPUSCULAR HGB CONC 33.4 g/dl (33.0-37.0); MEAN PLATELET VOLUME 10.7 fl (9.6-12.3); MONO # 0.5 10*3/uL (0.1-1.0); MONO % 6.8 % (3.0-9.0); NEUT # 4.8 10*3/uL (2.3-7.9); NEUT % 62.5 % (47.0-73.0); PLATELET COUNT AUTOMATED 201 10*3/uL (130-400); RED BLOOD COUNT 3.85 10*6/uL (4.50-5.90); RED CELL DISTRI WIDTH 13.7 % (0-14.5); WHITE BLOOD COUNT 7.7 10*3/uL (4.8-10.8)
[2023-07-21 19:58] LABS: ACT PARTIAL THROMBO TIME 28.7 SECONDS (20.0-32.1)
[2023-07-21 20:06] LABS: POTASSIUM 4.5 mmol/L (3.4-5.1); TOTAL PROTEIN 7.1 gm/dL (6.0-8.0)
== END 2023-07-21 21:53 | disposition home or self-care (01) ==
LOC: ED 17:52
PROVIDERS: Physician Assistant Medical
DX: R05.3 Chronic cough (principal); D64.9 Anemia, unspecified; E11.22 Type 2 diabetes mellitus with diabetic chronic kidney disease; I12.0 Hypertensive chronic kidney disease with stage 5 chronic kidney disease or end stage renal disease; N18.6 End stage renal disease; F31.9 Bipolar disorder, unspecified; Z99.2 Dependence on renal dialysis; E87.1 Hypo-osmolality and hyponatremia; E83.51 Hypocalcemia; Z20.822 Contact with and (suspected) exposure to COVID-19; Z88.8 Allergy status to other drugs, medicaments and biological substances; Z98.890 Other specified postprocedural states; F17.290 Nicotine dependence, other tobacco product, uncomplicated

== ENCOUNTER 2023-08-05 13:23 | Emergency (ER) | payer OTHER ==
[~2023-08-05] VITALS: Wt 95.5 kg
[2023-08-05 13:39] VITALS: BP 152/88
== END 2023-08-05 14:36 | disposition home or self-care (01) ==
LOC: ED 13:23
DX: J06.9 Acute upper respiratory infection, unspecified (principal); Z20.822 Contact with and (suspected) exposure to COVID-19; E11.22 Type 2 diabetes mellitus with diabetic chronic kidney disease; I12.0 Hypertensive chronic kidney disease with stage 5 chronic kidney disease or end stage renal disease; N18.6 End stage renal disease; F31.9 Bipolar disorder, unspecified; F17.210 Nicotine dependence, cigarettes, uncomplicated; Z88.8 Allergy status to other drugs, medicaments and biological substances; Z79.899 Other long term (current) drug therapy; Z79.4 Long term (current) use of insulin; Z98.890 Other specified postprocedural states

== ENCOUNTER 2023-10-05 01:00 | Emergency (ER) | payer OTHER ==
[~2023-10-05] VITALS: Ht 180.3 cm; Wt 97.5 kg
[2023-10-05 01:14] VITALS: BP 146/90
[2023-10-05 01:31] LABS: BASO # 0.1 10*3/uL (0.0-0.1); BASO % 0.7 % (0.0-1.0); EOS # 0.2 10*3/uL (0.0-0.4); EOS % 1.9 % (1.0-4.0); HEMATOCRIT 41.8 % (42.0-52.0); LYMPH # 3.6 10*3/uL (1.3-4.4); LYMPH % 39.6 % (27.0-41.0); MEAN CELL VOLUME 94.6 fl (80.0-94.0); MEAN CORPUSCULAR HGB CONC 32.8 g/dl (33.0-37.0); MEAN PLATELET VOLUME 10.4 fl (9.6-12.3); MONO # 0.7 10*3/uL (0.1-1.0); MONO % 7.8 % (3.0-9.0); NEUT # 4.5 10*3/uL (2.3-7.9); NEUT % 49.7 % (47.0-73.0); PLATELET COUNT AUTOMATED 216 10*3/uL (130-400); RED BLOOD COUNT 4.42 10*6/uL (4.50-5.90); RED CELL DISTRI WIDTH 14.6 % (0-14.5); WHITE BLOOD COUNT 9.1 10*3/uL (4.8-10.8)
[2023-10-05 01:59] LABS: POTASSIUM 4.3 mmol/L (3.4-5.1)
[2023-10-05] MEDS ORDERED: GUAIFENESIN200 MG PO (02:31)
== END 2023-10-05 02:47 | disposition home or self-care (01) ==
LOC: ED 01:00
PROVIDERS: Internal Medicine
DX: R09.89 Other specified symptoms and signs involving the circulatory and respiratory systems (principal); N18.6 End stage renal disease; Z88.8 Allergy status to other drugs, medicaments and biological substances; Z79.4 Long term (current) use of insulin; Z79.899 Other long term (current) drug therapy; Z98.890 Other specified postprocedural states

== ENCOUNTER 2023-12-29 22:18 | Emergency (ER) | payer MEDICARE ==
[~2023-12-29] VITALS: Ht 180.3 cm; Wt 99.8 kg
[~2023-12-29 22:18] MED LIST changes: +GUAIFENESIN200 MG PO
[2023-12-29 22:28] VITALS: BP 141/93
[2023-12-29] MEDS ORDERED: Ondansetron Hydrochloride 4 MG TAB SL ONE ×2 (22:35→23:35)
[2023-12-29 22:47] LABS: BASO # 0.1 10*3/uL (0.0-0.1); BASO % 0.6 % (0.0-1.0); EOS # 0.2 10*3/uL (0.0-0.4); EOS % 2.3 % (1.0-4.0); LYMPH # 2.8 10*3/uL (1.3-4.4); LYMPH % 30.6 % (27.0-41.0); MEAN CELL VOLUME 94.6 fl (80.0-94.0); MEAN CORPUSCULAR HGB CONC 33.8 g/dl (33.0-37.0); MEAN PLATELET VOLUME 10.4 fl (9.6-12.3); MONO # 0.6 10*3/uL (0.1-1.0); MONO % 6.1 % (3.0-9.0); NEUT # 5.4 10*3/uL (2.3-7.9); NEUT % 59.8 % (47.0-73.0); PLATELET COUNT AUTOMATED 232 10*3/uL (130-400); RED BLOOD COUNT 4.97 10*6/uL (4.50-5.90); RED CELL DISTRI WIDTH 14.6 % (0-14.5); WHITE BLOOD COUNT 9.1 10*3/uL (4.8-10.8)
[2023-12-29 23:19] LABS: POTASSIUM 3.6 mmol/L (3.4-5.1); TOTAL PROTEIN 7.8 gm/dL (6.0-8.0)
[2023-12-29] MEDS ORDERED: INSULIN REGULAR, HUMAN 1 UNIT/0.01 ML SC ONE (23:35)
[2023-12-29] MEDS ORDERED: ONDANSETRON4 MG SL (23:35)
== END 2023-12-29 23:50 | disposition home or self-care (01) ==
LOC: ED 22:18
PROVIDERS: Internal Medicine
DX: R11.2 Nausea with vomiting, unspecified (principal); E11.65 Type 2 diabetes mellitus with hyperglycemia; E11.22 Type 2 diabetes mellitus with diabetic chronic kidney disease; I12.0 Hypertensive chronic kidney disease with stage 5 chronic kidney disease or end stage renal disease; N18.6 End stage renal disease; Z99.2 Dependence on renal dialysis; D64.9 Anemia, unspecified; F31.9 Bipolar disorder, unspecified; F17.200 Nicotine dependence, unspecified, uncomplicated; Z88.8 Allergy status to other drugs, medicaments and biological substances; Z98.890 Other specified postprocedural states

== ENCOUNTER 2024-02-06 02:13 | Emergency (ER) | payer MEDICARE ==
[~2024-02-06] VITALS: Ht 175.2 cm; Wt 96.2 kg
[~2024-02-06 02:13] MED LIST changes: +ONDANSETRON4 MG SL
[2024-02-06 02:23] VITALS: BP 210/102
[2024-02-06] MEDS ORDERED: Ondansetron Hydrochloride 4 MG TAB SL ONE ×2 (02:35→03:35)
[2024-02-06 02:45] LABS: BASO # 0.1 10*3/uL (0.0-0.1); BASO % 0.7 % (0.0-1.0); EOS # 0.2 10*3/uL (0.0-0.4); EOS % 2.3 % (1.0-4.0); HEMATOCRIT 39.8 % (42.0-52.0); LYMPH # 2.7 10*3/uL (1.3-4.4); LYMPH % 35.6 % (27.0-41.0); MEAN CELL VOLUME 93.2 fl (80.0-94.0); MEAN CORPUSCULAR HGB 31.4 pg (27.0-31.0); MEAN CORPUSCULAR HGB CONC 33.7 g/dl (33.0-37.0); MONO # 0.6 10*3/uL (0.1-1.0); MONO % 7.5 % (3.0-9.0); NEUT % 53.5 % (47.0-73.0); PLATELET COUNT AUTOMATED 168 10*3/uL (130-400); RED BLOOD COUNT 4.27 10*6/uL (4.50-5.90); RED CELL DISTRI WIDTH 14.5 % (0-14.5); WHITE BLOOD COUNT 7.5 10*3/uL (4.8-10.8)
[2024-02-06 03:05] LABS: POTASSIUM 4.1 mmol/L (3.4-5.1)
[2024-02-06] MEDS ORDERED: Ondansetron 4 MG 2 TAB ED PACK PO SCH (03:35)
== END 2024-02-06 06:47 | disposition home or self-care (01) ==
LOC: ED 02:13
PROVIDERS: Internal Medicine
DX: E11.65 Type 2 diabetes mellitus with hyperglycemia (principal); R11.2 Nausea with vomiting, unspecified; T39.1X5A Adverse effect of 4-Aminophenol derivatives, initial encounter; E11.22 Type 2 diabetes mellitus with diabetic chronic kidney disease; N18.6 End stage renal disease; D64.9 Anemia, unspecified; I12.0 Hypertensive chronic kidney disease with stage 5 chronic kidney disease or end stage renal disease; F31.9 Bipolar disorder, unspecified; Z99.2 Dependence on renal dialysis; F17.200 Nicotine dependence, unspecified, uncomplicated; Z88.8 Allergy status to other drugs, medicaments and biological substances; Z98.890 Other specified postprocedural states; Y92.009 Unspecified place in unspecified non-institutional (private) residence as the place of occurrence of the external cause

== ENCOUNTER 2024-02-08 15:56 | Emergency (ER) | payer MEDICARE ==
[~2024-02-08] VITALS: Ht 175.2 cm; Wt 99.8 kg
[2024-02-08] MEDS ORDERED: Labetalol Hydrochloride 20 MG/4 ML SYR IV ONE ×2 (17:00→18:05)
[2024-02-08 17:11] LABS: BASO % 0.6 % (0.0-1.0); EOS # 0.1 10*3/uL (0.0-0.4); EOS % 1.3 % (1.0-4.0); HEMATOCRIT 39.8 % (42.0-52.0); LYMPH # 1.8 10*3/uL (1.3-4.4); LYMPH % 27.2 % (27.0-41.0); MEAN CELL VOLUME 93.6 fl (80.0-94.0); MEAN CORPUSCULAR HGB 31.3 pg (27.0-31.0); MEAN CORPUSCULAR HGB CONC 33.4 g/dl (33.0-37.0); MEAN PLATELET VOLUME 10.6 fl (9.6-12.3); MONO # 0.5 10*3/uL (0.1-1.0); MONO % 7.5 % (3.0-9.0); NEUT # 4.3 10*3/uL (2.3-7.9); NEUT % 63.1 % (47.0-73.0); PLATELET COUNT AUTOMATED 190 10*3/uL (130-400); RED BLOOD COUNT 4.25 10*6/uL (4.50-5.90); RED CELL DISTRI WIDTH 14.4 % (0-14.5); WHITE BLOOD COUNT 6.8 10*3/uL (4.8-10.8)
[2024-02-08 17:36] LABS: POTASSIUM 3.8 mmol/L (3.4-5.1)
[2024-02-08 18:30] VITALS: BP 168/89
[2024-02-08] MEDS ORDERED: VENT7GM INH (18:34)
[2024-02-08] MEDS ORDERED: AVPAK AZITHROM250 M1 PO (18:34)
== END 2024-02-08 18:40 | disposition home or self-care (01) ==
LOC: ED 15:56
PROVIDERS: Emergency Medicine
DX: I16.0 Hypertensive urgency (principal); J98.4 Other disorders of lung; E11.22 Type 2 diabetes mellitus with diabetic chronic kidney disease; I12.0 Hypertensive chronic kidney disease with stage 5 chronic kidney disease or end stage renal disease; N18.6 End stage renal disease; D64.9 Anemia, unspecified; F31.9 Bipolar disorder, unspecified; F17.200 Nicotine dependence, unspecified, uncomplicated; Z99.2 Dependence on renal dialysis; E78.5 Hyperlipidemia, unspecified; Z88.8 Allergy status to other drugs, medicaments and biological substances; Z98.890 Other specified postprocedural states

== ENCOUNTER 2024-02-16 20:04 | Emergency (ER) | payer MEDICARE ==
[~2024-02-16] VITALS: Ht 172.7 cm; Wt 113.4 kg
[~2024-02-16 20:04] MED LIST changes: +AVPAK AZITHROM250 M1 PO; +VENT7GM INH
[2024-02-16 20:15] VITALS: BP 185/116
[2024-02-16] MEDS ORDERED: Acetaminophen/Oxycodone 5 MG/325 MG TABLET PO ONE ×2 (20:20→23:20)
[2024-02-16] MEDS ORDERED: PERCOCET 5-3251 EACH PO (22:50)
== END 2024-02-16 23:35 | disposition home or self-care (01) ==
LOC: ED 20:04
DX: S82.302A Unspecified fracture of lower end of left tibia, initial encounter for closed fracture (principal); D64.9 Anemia, unspecified; E11.22 Type 2 diabetes mellitus with diabetic chronic kidney disease; I12.0 Hypertensive chronic kidney disease with stage 5 chronic kidney disease or end stage renal disease; N18.6 End stage renal disease; Z99.2 Dependence on renal dialysis; E87.1 Hypo-osmolality and hyponatremia; F17.200 Nicotine dependence, unspecified, uncomplicated; Z88.8 Allergy status to other drugs, medicaments and biological substances; Z98.890 Other specified postprocedural states; W19.XXXA Unspecified fall, initial encounter; Y93.89 Activity, other specified; Y92.89 Other specified places as the place of occurrence of the external cause; Y99.8 Other external cause status

== ENCOUNTER 2024-02-17 11:07 | Emergency (ER) | payer MEDICARE ==
[~2024-02-17] VITALS: Ht 175.2 cm; Wt 99.8 kg
[~2024-02-17 11:07] MED LIST changes: +LABETALOL H5 MG/1 ML PO
[2024-02-17 11:29] VITALS: BP 157/98
[2024-02-17] MEDS ORDERED: Tdap Vaccine 0.5 ML SYR (Adult Vaccine) IM ONE (11:40)
[2024-02-20] MEDS ORDERED: ASPIRIN CHEWABL81 MG PO (14:09)
[2024-02-20] MEDS ORDERED: PLAVIX75 M1 PO (14:10)
== END 2024-02-17 12:22 | disposition home or self-care (01) ==
LOC: ED 11:07
DX: S51.011A Laceration without foreign body of right elbow, initial encounter (principal); F17.200 Nicotine dependence, unspecified, uncomplicated; E11.22 Type 2 diabetes mellitus with diabetic chronic kidney disease; I12.0 Hypertensive chronic kidney disease with stage 5 chronic kidney disease or end stage renal disease; N18.6 End stage renal disease; D64.9 Anemia, unspecified; E83.51 Hypocalcemia; E87.1 Hypo-osmolality and hyponatremia; F31.9 Bipolar disorder, unspecified; Z88.8 Allergy status to other drugs, medicaments and biological substances; Z98.890 Other specified postprocedural states; W01.0XXA Fall on same level from slipping, tripping and stumbling without subsequent striking against object, initial encounter; Y93.89 Activity, other specified; Y92.009 Unspecified place in unspecified non-institutional (private) residence as the place of occurrence of the external cause; Y99.8 Other external cause status

== ENCOUNTER → 2024-02-21 | Day surgery (SDC) | payer OTHER ==
[2024-02-20 14:13] VITALS: BP 142/96
[2024-02-20 15:58] LABS: POTASSIUM 3.8 mmol/L (3.4-5.1)
[2024-02-20 16:54] LABS: ACT PARTIAL THROMBO TIME 27.1 SECONDS (20.0-32.1)
[2024-02-21] VITALS (7 sets, daily range): BP systolic 118–143; BP diastolic 69–84
[~2024-02-21] VITALS: Ht 175.2 cm; Wt 100.0 kg
[~2024-02-21] MED LIST changes: +ASPIRIN CHEWABL81 MG PO; +GLYCOPYRROLATE IN WATER/PF 0.4 MG/2 ML SYRINGE IV ONE; +LIDOCAINE HCL/EPINEPHRINE 50 ML VIAL ONE; +Midazolam Hydrochloride 2 MG/2 ML VIAL IV ONE; +Midazolam Hydrochloride 2 MG/2 ML VIAL ONE; +Neostigmine Methylsulfate 3 MG/3 ML SYRINGE IV ONE; +Ondansetron Hydrochloride 4 MG/2 ML VIAL IV ONE; +PLAVIX75 M1 PO; +PROPOFOL 200 MG/20 ML VIAL IV ONE; +ROCURONIUM BROMIDE 50 MG/5 ML SYRINGE IV ONE; +Ropivacaine Hydrochloride 5 MG/ML 20 ML AMP IJ ONE; +SEVOFLURANE 250 ML BOT INH ONE; +SODIUM CHLORIDE 0.9% 1,000 ML IV ONE; +ePHEDrine Sulfate 25 MG/5 ML SYRINGE IV ONE; +fentaNYL CITRATE 100 MCG/2 ML VIAL IV ONE
== END | disposition home or self-care (01) ==
LOC: SDC 02-19 14:00
PROVIDERS: ATTEND Orthopaedic Surgery
DX: S82.872A Displaced pilon fracture of left tibia, initial encounter for closed fracture (principal); S82.402A Unspecified fracture of shaft of left fibula, initial encounter for closed fracture; I12.0 Hypertensive chronic kidney disease with stage 5 chronic kidney disease or end stage renal disease; E11.22 Type 2 diabetes mellitus with diabetic chronic kidney disease; N18.6 End stage renal disease; I25.10 Atherosclerotic heart disease of native coronary artery without angina pectoris; E78.00 Pure hypercholesterolemia, unspecified; E11.319 Type 2 diabetes mellitus with unspecified diabetic retinopathy without macular edema; K21.9 Gastro-esophageal reflux disease without esophagitis; F32.A Depression, unspecified; F90.9 Attention-deficit hyperactivity disorder, unspecified type; G89.18 Other acute postprocedural pain; Z99.2 Dependence on renal dialysis; Z98.890 Other specified postprocedural states; Z79.82 Long term (current) use of aspirin; Z79.4 Long term (current) use of insulin; Z79.899 Other long term (current) drug therapy; Z88.8 Allergy status to other drugs, medicaments and biological substances; Z82.49 Family history of ischemic heart disease and other diseases of the circulatory system; X58.XXXA Exposure to other specified factors, initial encounter; Y93.89 Activity, other specified; Y92.89 Other specified places as the place of occurrence of the external cause; Y99.8 Other external cause status

== ENCOUNTER 2024-02-25 17:11 | Emergency (ER) | payer OTHER ==
[~2024-02-25] VITALS: Ht 175.2 cm; Wt 99.8 kg
[~2024-02-25 17:11] MED LIST changes: -GLYCOPYRROLATE IN WATER/PF 0.4 MG/2 ML SYRINGE IV ONE; -LIDOCAINE HCL/EPINEPHRINE 50 ML VIAL ONE; -Midazolam Hydrochloride 2 MG/2 ML VIAL IV ONE; -Midazolam Hydrochloride 2 MG/2 ML VIAL ONE; -Neostigmine Methylsulfate 3 MG/3 ML SYRINGE IV ONE; -Ondansetron Hydrochloride 4 MG/2 ML VIAL IV ONE; -PROPOFOL 200 MG/20 ML VIAL IV ONE; -ROCURONIUM BROMIDE 50 MG/5 ML SYRINGE IV ONE; -Ropivacaine Hydrochloride 5 MG/ML 20 ML AMP IJ ONE; -SEVOFLURANE 250 ML BOT INH ONE; -SODIUM CHLORIDE 0.9% 1,000 ML IV ONE; -ePHEDrine Sulfate 25 MG/5 ML SYRINGE IV ONE; -fentaNYL CITRATE 100 MCG/2 ML VIAL IV ONE
[2024-02-25 17:24] VITALS: BP 129/72
== END 2024-02-25 20:08 | disposition home or self-care (01) ==
LOC: ED 17:11
DX: S90.32XA Contusion of left foot, initial encounter (principal); D64.9 Anemia, unspecified; E87.5 Hyperkalemia; E11.22 Type 2 diabetes mellitus with diabetic chronic kidney disease; I12.0 Hypertensive chronic kidney disease with stage 5 chronic kidney disease or end stage renal disease; N18.6 End stage renal disease; E87.1 Hypo-osmolality and hyponatremia; F31.9 Bipolar disorder, unspecified; F17.200 Nicotine dependence, unspecified, uncomplicated; Z88.8 Allergy status to other drugs, medicaments and biological substances; Z98.890 Other specified postprocedural states; X58.XXXA Exposure to other specified factors, initial encounter; Y93.89 Activity, other specified; Y92.89 Other specified places as the place of occurrence of the external cause; Y99.8 Other external cause status

== ENCOUNTER → 2024-02-29 | Outpatient (CLI) | payer OTHER | END | disposition home or self-care (01) | LOC: ORTHO 00:42 | PROVIDERS: ATTEND Orthopaedic Surgery | DX: S82.872D Displaced pilon fracture of left tibia, subsequent encounter for closed fracture with routine healing (principal); M79.89 Other specified soft tissue disorders; X58.XXXD Exposure to other specified factors, subsequent encounter ==

== ENCOUNTER 2024-03-05 18:52 | Emergency (ER) | payer OTHER ==
[~2024-03-05] VITALS: Wt 97.5 kg
[2024-03-05 19:02] VITALS: BP 162/80
[2024-03-05] MEDS ORDERED: SODIUM CHLORIDE 0.9% 500 ML IV ONE (22:00)
[2024-03-05] MEDS ORDERED: Ondansetron Hydrochloride 4 MG/2 ML VIAL IV ONE (22:00)
[2024-03-05 22:10] LABS: BASO % 0.4 % (0.0-1.0); EOS # 0.2 10*3/uL (0.0-0.4); EOS % 2.3 % (1.0-4.0); HEMATOCRIT 29.9 % (42.0-52.0); LYMPH # 1.4 10*3/uL (1.3-4.4); LYMPH % 20.4 % (27.0-41.0); MEAN CELL VOLUME 93.7 fl (80.0-94.0); MEAN CORPUSCULAR HGB 30.4 pg (27.0-31.0); MEAN CORPUSCULAR HGB CONC 32.4 g/dl (33.0-37.0); MEAN PLATELET VOLUME 10.3 fl (9.6-12.3); MONO # 0.5 10*3/uL (0.1-1.0); MONO % 7.6 % (3.0-9.0); NEUT # 4.7 10*3/uL (2.3-7.9); NEUT % 68.9 % (47.0-73.0); PLATELET COUNT AUTOMATED 236 10*3/uL (130-400); RED BLOOD COUNT 3.19 10*6/uL (4.50-5.90); RED CELL DISTRI WIDTH 14.5 % (0-14.5); WHITE BLOOD COUNT 6.9 10*3/uL (4.8-10.8)
[2024-03-05 22:28] LABS: POTASSIUM 3.6 mmol/L (3.4-5.1)
[2024-03-05] MEDS ORDERED: INSULIN REGULAR, HUMAN 1 UNIT/0.01 ML IV ONE (23:55)
== END 2024-03-06 00:45 | disposition home or self-care (01) ==
LOC: ED 18:52
PROVIDERS: Emergency Medicine
DX: K52.9 Noninfective gastroenteritis and colitis, unspecified (principal); R11.10 Vomiting, unspecified; I12.0 Hypertensive chronic kidney disease with stage 5 chronic kidney disease or end stage renal disease; E11.22 Type 2 diabetes mellitus with diabetic chronic kidney disease; N18.6 End stage renal disease; E44.0 Moderate protein-calorie malnutrition; F17.200 Nicotine dependence, unspecified, uncomplicated; Z88.8 Allergy status to other drugs, medicaments and biological substances; Z79.899 Other long term (current) drug therapy; Z79.82 Long term (current) use of aspirin; Z79.4 Long term (current) use of insulin; Z99.2 Dependence on renal dialysis; Z98.890 Other specified postprocedural states

== ENCOUNTER → 2024-03-07 | Outpatient (CLI) | payer OTHER | END | disposition home or self-care (01) | LOC: ORTHO 01:41 | PROVIDERS: ATTEND Orthopaedic Surgery | DX: S82.872D Displaced pilon fracture of left tibia, subsequent encounter for closed fracture with routine healing (principal); Z98.890 Other specified postprocedural states; X58.XXXD Exposure to other specified factors, subsequent encounter ==

== ENCOUNTER → 2024-03-13 | Day surgery (SDC) | payer OTHER ==
[~2024-03-13] VITALS: Ht 175.2 cm; Wt 99.8 kg
[~2024-03-13] MED LIST changes: +EPINEPHrine/Lidocaine Hydroc 20 ML VIAL ONE; +Ketamine Hydrochloride 50 MG/5 ML SYRINGE IV ONE; +Lidocaine Hydrochloride 2% 10 ML AMP IM ONE; +Midazolam Hydrochloride 2 MG/2 ML VIAL IV ONE; +PROPOFOL 200 MG/20 ML VIAL IV ONE; +SODIUM CHLORIDE 0.9% 1,000 ML IV ONE; +ceFAZolin sodium/sodium chlor 1 GM/10 ML SYR IV ONE; +ceFAZolin sodium/sodium chlor 20 ML IV ONE; +fentaNYL CITRATE 100 MCG/2 ML VIAL IV ONE
[2024-03-13 09:20] VITALS: BP 166/89
[2024-03-13 10:09] VITALS: BP 162/90
[2024-03-13 10:39] VITALS: BP 153/83
== END | disposition home or self-care (01) ==
LOC: SDC 03-10 09:30
PROVIDERS: ATTEND Orthopaedic Surgery
DX: T84.89XA Other specified complication of internal orthopedic prosthetic devices, implants and grafts, initial encounter (principal); I12.0 Hypertensive chronic kidney disease with stage 5 chronic kidney disease or end stage renal disease; E10.22 Type 1 diabetes mellitus with diabetic chronic kidney disease; N18.6 End stage renal disease; E10.3299 Type 1 diabetes mellitus with mild nonproliferative diabetic retinopathy without macular edema, unspecified eye; F31.9 Bipolar disorder, unspecified; K21.9 Gastro-esophageal reflux disease without esophagitis; E78.5 Hyperlipidemia, unspecified; Z95.818 Presence of other cardiac implants and grafts; Z99.2 Dependence on renal dialysis; Z87.891 Personal history of nicotine dependence; Z79.4 Long term (current) use of insulin; Z79.899 Other long term (current) drug therapy; Z88.8 Allergy status to other drugs, medicaments and biological substances; Z83.3 Family history of diabetes mellitus; Z82.49 Family history of ischemic heart disease and other diseases of the circulatory system; X58.XXXA Exposure to other specified factors, initial encounter

== ENCOUNTER 2024-03-19 23:28 | Emergency (ER) | payer OTHER ==
[~2024-03-19] VITALS: Ht 175.2 cm; Wt 83.9 kg
[~2024-03-19 23:28] MED LIST changes: -EPINEPHrine/Lidocaine Hydroc 20 ML VIAL ONE; -Ketamine Hydrochloride 50 MG/5 ML SYRINGE IV ONE; -Lidocaine Hydrochloride 2% 10 ML AMP IM ONE; -Midazolam Hydrochloride 2 MG/2 ML VIAL IV ONE; -PROPOFOL 200 MG/20 ML VIAL IV ONE; -SODIUM CHLORIDE 0.9% 1,000 ML IV ONE; -ceFAZolin sodium/sodium chlor 1 GM/10 ML SYR IV ONE; -ceFAZolin sodium/sodium chlor 20 ML IV ONE; -fentaNYL CITRATE 100 MCG/2 ML VIAL IV ONE
[2024-03-19 23:37] VITALS: BP 165/96
[2024-03-20] MEDS ORDERED: Ondansetron Hydrochloride 4 MG TAB SL ONE (00:25)
[2024-03-20 00:37] LABS: BASO % 0.5 % (0.0-1.0); EOS # 0.3 10*3/uL (0.0-0.4); EOS % 5.4 % (1.0-4.0); HEMATOCRIT 29.3 % (42.0-52.0); LYMPH # 1.3 10*3/uL (1.3-4.4); LYMPH % 23.1 % (27.0-41.0); MEAN CELL VOLUME 94.8 fl (80.0-94.0); MEAN CORPUSCULAR HGB 30.7 pg (27.0-31.0); MEAN CORPUSCULAR HGB CONC 32.4 g/dl (33.0-37.0); MONO # 0.6 10*3/uL (0.1-1.0); MONO % 10.1 % (3.0-9.0); NEUT # 3.5 10*3/uL (2.3-7.9); NEUT % 60.4 % (47.0-73.0); PLATELET COUNT AUTOMATED 189 10*3/uL (130-400); RED BLOOD COUNT 3.09 10*6/uL (4.50-5.90); RED CELL DISTRI WIDTH 14.8 % (0-14.5); WHITE BLOOD COUNT 5.8 10*3/uL (4.8-10.8)
[2024-03-20 00:57] LABS: POTASSIUM 3.3 mmol/L (3.4-5.1)
[2024-03-21] MEDS ORDERED: Ondansetron4 MG PO (17:47)
== END 2024-03-20 03:10 | disposition home or self-care (01) ==
LOC: ED 23:28
PROVIDERS: Emergency Medicine
DX: J06.9 Acute upper respiratory infection, unspecified (principal); S82.842A Displaced bimalleolar fracture of left lower leg, initial encounter for closed fracture; Z88.8 Allergy status to other drugs, medicaments and biological substances; Z79.899 Other long term (current) drug therapy; Z79.82 Long term (current) use of aspirin; X58.XXXA Exposure to other specified factors, initial encounter; Y93.89 Activity, other specified; Y92.89 Other specified places as the place of occurrence of the external cause; Y99.8 Other external cause status; E11.22 Type 2 diabetes mellitus with diabetic chronic kidney disease; I12.0 Hypertensive chronic kidney disease with stage 5 chronic kidney disease or end stage renal disease; N18.6 End stage renal disease; Z99.2 Dependence on renal dialysis

== ENCOUNTER 2024-03-21 14:46 | Emergency (ER) | payer OTHER ==
[~2024-03-21] VITALS: Ht 177.8 cm; Wt 6.0 kg
[2024-03-21 15:36] VITALS: BP 173/102
[2024-03-21 17:05] LABS: BASO % 0.5 % (0.0-1.0); EOS # 0.4 10*3/uL (0.0-0.4); EOS % 4.8 % (1.0-4.0); HEMATOCRIT 29.1 % (42.0-52.0); LYMPH # 1.7 10*3/uL (1.3-4.4); LYMPH % 22.7 % (27.0-41.0); MEAN CELL VOLUME 92.4 fl (80.0-94.0); MEAN CORPUSCULAR HGB 30.8 pg (27.0-31.0); MEAN CORPUSCULAR HGB CONC 33.3 g/dl (33.0-37.0); MEAN PLATELET VOLUME 10.3 fl (9.6-12.3); MONO # 0.5 10*3/uL (0.1-1.0); MONO % 7.1 % (3.0-9.0); NEUT # 4.8 10*3/uL (2.3-7.9); NEUT % 64.5 % (47.0-73.0); PLATELET COUNT AUTOMATED 194 10*3/uL (130-400); RED BLOOD COUNT 3.15 10*6/uL (4.50-5.90); RED CELL DISTRI WIDTH 14.9 % (0-14.5); WHITE BLOOD COUNT 7.5 10*3/uL (4.8-10.8)
[2024-03-21 17:27] LABS: ALKALINE PHOSPHATASE 269 U/L (46-116); CHLORIDE 97 mmol/L (98-107); LIPASE 21 U/L (12-53); POTASSIUM 3.3 mmol/L (3.4-5.1); TOTAL PROTEIN 6.8 gm/dL (6.0-8.0)
[2024-03-21 17:30] LABS: BUN 31 mg/dl (9-23); SGPT/ALT < 7 U/L (5-49)
[2024-03-21] MEDS ORDERED: Ondansetron Hydrochloride 4 MG TAB PO ONE (17:45)
[2024-03-21] MEDS ORDERED: Ondansetron4 MG PO (17:47)
== END 2024-03-21 19:16 | disposition home or self-care (01) ==
LOC: ED 14:46
PROVIDERS: Emergency Medicine
DX: E11.22 Type 2 diabetes mellitus with diabetic chronic kidney disease (principal); I12.0 Hypertensive chronic kidney disease with stage 5 chronic kidney disease or end stage renal disease; N18.5 Chronic kidney disease, stage 5; R11.0 Nausea; D64.9 Anemia, unspecified; E87.5 Hyperkalemia; E11.65 Type 2 diabetes mellitus with hyperglycemia; F31.9 Bipolar disorder, unspecified; F17.200 Nicotine dependence, unspecified, uncomplicated; Z99.2 Dependence on renal dialysis; Z88.8 Allergy status to other drugs, medicaments and biological substances; Z98.890 Other specified postprocedural states

== ENCOUNTER → 2024-03-28 | Outpatient (CLI) | payer OTHER ==
[~2024-03-28] MED LIST changes: +Ondansetron4 MG PO
== END | disposition home or self-care (01) ==
LOC: ORTHO 00:51
PROVIDERS: ATTEND Orthopaedic Surgery
DX: S82.65XD Nondisplaced fracture of lateral malleolus of left fibula, subsequent encounter for closed fracture with routine healing (principal); X58.XXXD Exposure to other specified factors, subsequent encounter

== ENCOUNTER 2024-04-07 20:45 | Emergency (ER) | payer OTHER ==
[~2024-04-07] VITALS: Ht 175.2 cm; Wt 95.6 kg
[2024-04-07 20:58] VITALS: BP 149/86
[2024-04-07] MEDS ORDERED: PENICILLIN VK500 MG PO (21:11)
[2024-04-07] MEDS ORDERED: CLINDAMYCIN HC300 MG PO (21:15)
[2024-04-07] MEDS ORDERED: CLINDAMYCIN HCL 300 MG CAPSULE PO ONE (21:20)
[2024-04-07] MEDS ORDERED: OXYCODONE HCL (IR) 5 MG TAB PO ONE (21:20)
[2024-04-08] MEDS ORDERED: CEPHALEXIN500 M1 PO (14:04)
== END 2024-04-07 21:21 | disposition home or self-care (01) ==
LOC: ED 20:45
DX: K04.7 Periapical abscess without sinus (principal); D64.9 Anemia, unspecified; E87.5 Hyperkalemia; E11.22 Type 2 diabetes mellitus with diabetic chronic kidney disease; I12.0 Hypertensive chronic kidney disease with stage 5 chronic kidney disease or end stage renal disease; N18.6 End stage renal disease; Z99.2 Dependence on renal dialysis; E83.51 Hypocalcemia; E87.1 Hypo-osmolality and hyponatremia; F31.9 Bipolar disorder, unspecified; F17.200 Nicotine dependence, unspecified, uncomplicated; Z88.8 Allergy status to other drugs, medicaments and biological substances; Z98.890 Other specified postprocedural states

== ENCOUNTER 2024-04-08 12:28 | Emergency (ER) | payer OTHER ==
[~2024-04-08] VITALS: Ht 175.2 cm; Wt 96.0 kg
[~2024-04-08 12:28] MED LIST changes: +CLINDAMYCIN HC300 MG PO
[2024-04-08 12:34] VITALS: BP 172/88
[2024-04-08] MEDS ORDERED: CEPHALEXIN500 M1 PO (14:04)
== END 2024-04-08 14:22 | disposition home or self-care (01) ==
LOC: ED 12:28
DX: S90.512A Abrasion, left ankle, initial encounter (principal); D64.9 Anemia, unspecified; E87.1 Hypo-osmolality and hyponatremia; E83.51 Hypocalcemia; E11.40 Type 2 diabetes mellitus with diabetic neuropathy, unspecified; E11.22 Type 2 diabetes mellitus with diabetic chronic kidney disease; I12.0 Hypertensive chronic kidney disease with stage 5 chronic kidney disease or end stage renal disease; N18.6 End stage renal disease; Z88.8 Allergy status to other drugs, medicaments and biological substances; Z98.890 Other specified postprocedural states; Z99.2 Dependence on renal dialysis; F17.200 Nicotine dependence, unspecified, uncomplicated; W22.03XA Walked into furniture, initial encounter; Y93.89 Activity, other specified; Y92.009 Unspecified place in unspecified non-institutional (private) residence as the place of occurrence of the external cause; Y99.8 Other external cause status

== ENCOUNTER → 2024-04-18 | Outpatient (CLI) | payer OTHER | END | disposition home or self-care (01) | LOC: ORTHO 02:52 | PROVIDERS: ATTEND Orthopaedic Surgery | DX: S82.65XD Nondisplaced fracture of lateral malleolus of left fibula, subsequent encounter for closed fracture with routine healing (principal); M79.89 Other specified soft tissue disorders; X58.XXXD Exposure to other specified factors, subsequent encounter ==

== ENCOUNTER 2024-05-19 13:16 | Emergency (ER) | payer OTHER ==
[~2024-05-19] VITALS: Ht 177.8 cm; Wt 101.6 kg
[2024-05-19] MEDS ORDERED: SODIUM CHLORIDE 0.9% 1,000 ML IV ONE (13:30)
[2024-05-19 13:43] LABS: BASO % 0.6 % (0.0-1.0); EOS # 0.1 10*3/uL (0.0-0.4); EOS % 1.5 % (1.0-4.0); HEMATOCRIT 36.4 % (42.0-52.0); LYMPH # 1.9 10*3/uL (1.3-4.4); LYMPH % 26.3 % (27.0-41.0); MEAN CELL VOLUME 97.8 fl (80.0-94.0); MEAN CORPUSCULAR HGB 32.5 pg (27.0-31.0); MEAN CORPUSCULAR HGB CONC 33.2 g/dl (33.0-37.0); MEAN PLATELET VOLUME 10.6 fl (9.6-12.3); MONO # 0.6 10*3/uL (0.1-1.0); MONO % 8.3 % (3.0-9.0); NEUT # 4.5 10*3/uL (2.3-7.9); NEUT % 62.3 % (47.0-73.0); PLATELET COUNT AUTOMATED 179 10*3/uL (130-400); RED BLOOD COUNT 3.72 10*6/uL (4.50-5.90); RED CELL DISTRI WIDTH 15.8 % (0-14.5); WHITE BLOOD COUNT 7.2 10*3/uL (4.8-10.8)
[2024-05-19 14:08] LABS: POTASSIUM 4.4 mmol/L (3.4-5.1); TOTAL PROTEIN 6.8 gm/dL (6.0-8.0)
[2024-05-19 16:37] VITALS: BP 128/62
== END 2024-05-19 16:38 | disposition home or self-care (01) ==
LOC: ED 13:16
DX: E86.0 Dehydration (principal); R53.1 Weakness; E11.22 Type 2 diabetes mellitus with diabetic chronic kidney disease; I12.0 Hypertensive chronic kidney disease with stage 5 chronic kidney disease or end stage renal disease; D63.1 Anemia in chronic kidney disease; E83.51 Hypocalcemia; E87.1 Hypo-osmolality and hyponatremia; N18.5 Chronic kidney disease, stage 5; F31.9 Bipolar disorder, unspecified; F17.200 Nicotine dependence, unspecified, uncomplicated; Z88.8 Allergy status to other drugs, medicaments and biological substances; Z98.890 Other specified postprocedural states; Z99.2 Dependence on renal dialysis

== ENCOUNTER → 2024-05-21 | Outpatient (CLI) | payer OTHER | END | disposition home or self-care (01) | LOC: ORTHO 00:29 | PROVIDERS: ATTEND Orthopaedic Surgery | DX: S82.65XD Nondisplaced fracture of lateral malleolus of left fibula, subsequent encounter for closed fracture with routine healing (principal); X58.XXXD Exposure to other specified factors, subsequent encounter ==

== ENCOUNTER 2024-05-28 00:11 | Emergency (ER) | payer OTHER ==
[~2024-05-28] VITALS: Ht 175.2 cm; Wt 97.1 kg
[2024-05-28 00:15] VITALS: BP 179/100
[2024-05-28] MEDS ORDERED: PENICILLIN VK500 MG PO (00:47)
[2024-05-28] MEDS ORDERED: PENICILLIN V POTASSIUM 500 MG TAB PO ONE (00:50)
== END 2024-05-28 01:03 | disposition home or self-care (01) ==
LOC: ED 00:11
DX: K02.9 Dental caries, unspecified (principal); K08.89 Other specified disorders of teeth and supporting structures; E11.22 Type 2 diabetes mellitus with diabetic chronic kidney disease; I13.2 Hypertensive heart and chronic kidney disease with heart failure and with stage 5 chronic kidney disease, or end stage renal disease; N18.6 End stage renal disease; E87.1 Hypo-osmolality and hyponatremia; F31.9 Bipolar disorder, unspecified; E83.51 Hypocalcemia; I50.9 Heart failure, unspecified; F17.200 Nicotine dependence, unspecified, uncomplicated; Z99.2 Dependence on renal dialysis; Z88.8 Allergy status to other drugs, medicaments and biological substances; Z98.890 Other specified postprocedural states

== ENCOUNTER 2024-06-11 12:31 | Emergency (ER) | payer OTHER ==
[~2024-06-11] VITALS: Ht 175.2 cm; Wt 98.0 kg
[2024-06-11 13:11] VITALS: BP 168/68
[2024-06-11] MEDS ORDERED: TRAMADOL HCL50 MG PO (15:06)
== END 2024-06-11 15:28 | disposition home or self-care (01) ==
LOC: ED 12:31
DX: S82.61XA Displaced fracture of lateral malleolus of right fibula, initial encounter for closed fracture (principal); F17.200 Nicotine dependence, unspecified, uncomplicated; Z88.8 Allergy status to other drugs, medicaments and biological substances; Z79.2 Long term (current) use of antibiotics; Z79.82 Long term (current) use of aspirin; Z79.4 Long term (current) use of insulin; Z79.899 Other long term (current) drug therapy; W18.09XA Striking against other object with subsequent fall, initial encounter; Y93.89 Activity, other specified; Y92.89 Other specified places as the place of occurrence of the external cause; Y99.8 Other external cause status

== ENCOUNTER → 2024-06-16 | Outpatient (CLI) | payer OTHER | END | disposition home or self-care (01) | LOC: ORTHO 01:43 | PROVIDERS: ATTEND Orthopaedic Surgery | DX: S82.64XA Nondisplaced fracture of lateral malleolus of right fibula, initial encounter for closed fracture (principal); M79.89 Other specified soft tissue disorders; X58.XXXA Exposure to other specified factors, initial encounter; Y93.89 Activity, other specified; Y92.89 Other specified places as the place of occurrence of the external cause; Y99.8 Other external cause status ==

== ENCOUNTER → 2024-06-18 | Outpatient (CLI) | payer OTHER | END | disposition home or self-care (01) | LOC: ORTHO 03:47 | PROVIDERS: ATTEND Orthopaedic Surgery | DX: S82.65XD Nondisplaced fracture of lateral malleolus of left fibula, subsequent encounter for closed fracture with routine healing (principal); X58.XXXD Exposure to other specified factors, subsequent encounter ==

== ENCOUNTER → 2024-06-23 | Outpatient (CLI) | payer OTHER | END | disposition home or self-care (01) | LOC: ORTHO 00:54 | PROVIDERS: ATTEND Orthopaedic Surgery | DX: S82.64XD Nondisplaced fracture of lateral malleolus of right fibula, subsequent encounter for closed fracture with routine healing (principal); R60.0 Localized edema; X58.XXXD Exposure to other specified factors, subsequent encounter ==

== ENCOUNTER 2024-06-25 01:26 | Emergency (ER) | payer OTHER ==
[~2024-06-25] VITALS: Ht 175.2 cm; Wt 80.7 kg
[2024-06-25 01:34] VITALS: BP 161/100
[2024-06-25] MEDS ORDERED: Acetaminophen/Hydrocodone 5 MG/325 MG TABLET PO ONE (01:40)
[2024-06-25] MEDS ORDERED: CLINDAMYCIN HCL 300 MG CAPSULE PO ONE (01:40)
[2024-06-25] MEDS ORDERED: Bacitracin Zinc 14 GM TUBE T ONE (01:40)
[2024-06-25] MEDS ORDERED: Ondansetron Hydrochloride 4 MG TAB SL ONE (01:40)
[2024-06-25] MEDS ORDERED: CLINDAMYCIN HC300 MG PO (01:45)
== END 2024-06-25 02:00 | disposition home or self-care (01) ==
LOC: ED 01:26
DX: S99.922A Unspecified injury of left foot, initial encounter (principal); K02.9 Dental caries, unspecified; F17.200 Nicotine dependence, unspecified, uncomplicated; Z88.8 Allergy status to other drugs, medicaments and biological substances; Z79.899 Other long term (current) drug therapy; Z79.82 Long term (current) use of aspirin; Z98.890 Other specified postprocedural states; X58.XXXA Exposure to other specified factors, initial encounter; Y93.89 Activity, other specified; Y92.89 Other specified places as the place of occurrence of the external cause; Y99.8 Other external cause status

== ENCOUNTER → 2024-06-30 | Outpatient (CLI) | payer OTHER | END | disposition home or self-care (01) | LOC: ORTHO 01:57 | PROVIDERS: ATTEND Orthopaedic Surgery | DX: S82.64XD Nondisplaced fracture of lateral malleolus of right fibula, subsequent encounter for closed fracture with routine healing (principal); M25.472 Effusion, left ankle; M25.471 Effusion, right ankle; X58.XXXD Exposure to other specified factors, subsequent encounter ==

== ENCOUNTER 2024-07-05 18:53 | Emergency (ER) | payer OTHER ==
[2024-07-05] MEDS ORDERED: Labetalol Hydrochloride 200 MG TAB PO ONE (19:15)
[2024-07-05 19:31] LABS: BASO % 0.6 % (0.0-1.0); EOS # 0.1 10*3/uL (0.0-0.4); EOS % 2.3 % (1.0-4.0); HEMATOCRIT 27.7 % (42.0-52.0); MEAN CELL VOLUME 93.3 fl (80.0-94.0); MEAN CORPUSCULAR HGB CONC 33.2 g/dl (33.0-37.0); MEAN PLATELET VOLUME 9.9 fl (9.6-12.3); MONO # 0.5 10*3/uL (0.1-1.0); MONO % 9.3 % (3.0-9.0); NEUT # 2.9 10*3/uL (2.3-7.9); NEUT % 54.3 % (47.0-73.0); PLATELET COUNT AUTOMATED 189 10*3/uL (130-400); RED BLOOD COUNT 2.97 10*6/uL (4.50-5.90); RED CELL DISTRI WIDTH 13.6 % (0-14.5); WHITE BLOOD COUNT 5.3 10*3/uL (4.8-10.8)
[2024-07-05 19:49] LABS: POTASSIUM 4.3 mmol/L (3.4-5.1)
[2024-07-05 20:01] VITALS: BP 178/83
[2024-07-05] MEDS ORDERED: MEDROL DOSEPAK4 MG PO ×2 (20:20→20:23)
[2024-07-05] MEDS ORDERED: AVPAK AZITHROM250 MG PO ×2 (20:20→20:23)
== END 2024-07-05 20:32 | disposition home or self-care (01) ==
LOC: ED 18:53
PROVIDERS: Internal Medicine
DX: J40 Bronchitis, not specified as acute or chronic (principal); Z20.822 Contact with and (suspected) exposure to COVID-19; E11.22 Type 2 diabetes mellitus with diabetic chronic kidney disease; I12.0 Hypertensive chronic kidney disease with stage 5 chronic kidney disease or end stage renal disease; N18.6 End stage renal disease; F17.200 Nicotine dependence, unspecified, uncomplicated; Z88.8 Allergy status to other drugs, medicaments and biological substances; Z79.2 Long term (current) use of antibiotics; Z79.899 Other long term (current) drug therapy; Z79.82 Long term (current) use of aspirin; Z79.4 Long term (current) use of insulin; Z98.890 Other specified postprocedural states; Z99.2 Dependence on renal dialysis

== ENCOUNTER → 2024-07-21 | Outpatient (CLI) | payer OTHER ==
[~2024-07-21] MED LIST changes: +ATORVASTATIN CA40 M1 PO; +AVPAK AZITHROM250 MG PO; +BUPROPION HYDR150 M1 PO; +DOXYCYCLINE HY100 M3 PO; +NORMODYNE,TRAN200 MG PO; +OXYCODONE HCL10 M1 PO
== END | disposition home or self-care (01) ==
LOC: ORTHO 02:02
PROVIDERS: ATTEND Orthopaedic Surgery
DX: S82.64XA Nondisplaced fracture of lateral malleolus of right fibula, initial encounter for closed fracture (principal); M79.89 Other specified soft tissue disorders; X58.XXXD Exposure to other specified factors, subsequent encounter

== ENCOUNTER 2024-07-23 19:48 | Emergency (ER) | payer OTHER ==
[~2024-07-23] VITALS: Ht 175.2 cm; Wt 96.0 kg
[2024-07-23 19:59] VITALS: BP 165/97
[2024-07-23 20:56] LABS: BASO % 0.6 % (0.0-1.0); EOS # 0.1 10*3/uL (0.0-0.4); EOS % 1.8 % (1.0-4.0); HEMATOCRIT 30.3 % (42.0-52.0); MEAN CELL VOLUME 95.9 fl (80.0-94.0); MEAN CORPUSCULAR HGB 30.7 pg (27.0-31.0); MEAN PLATELET VOLUME 10.4 fl (9.6-12.3); MONO # 0.4 10*3/uL (0.1-1.0); MONO % 6.1 % (3.0-9.0); NEUT # 4.5 10*3/uL (2.3-7.9); NEUT % 67.4 % (47.0-73.0); PLATELET COUNT AUTOMATED 203 10*3/uL (130-400); RED BLOOD COUNT 3.16 10*6/uL (4.50-5.90); RED CELL DISTRI WIDTH 14.7 % (0-14.5); WHITE BLOOD COUNT 6.6 10*3/uL (4.8-10.8)
[2024-07-23 21:15] LABS: TOTAL PROTEIN 7.3 gm/dL (6.0-8.0)
[2024-07-23] MEDS ORDERED: PREDNISONE20 M1 PO (21:55)
[2024-07-23] MEDS ORDERED: methylPREDNISolone sod succ 125 MG VIAL IM ONE (21:55)
== END 2024-07-23 22:14 | disposition home or self-care (01) ==
LOC: ED 19:48
PROVIDERS: Nurse Practitioner Family
DX: M94.0 Chondrocostal junction syndrome [Tietze] (principal); D63.1 Anemia in chronic kidney disease; E11.65 Type 2 diabetes mellitus with hyperglycemia; E11.22 Type 2 diabetes mellitus with diabetic chronic kidney disease; I12.0 Hypertensive chronic kidney disease with stage 5 chronic kidney disease or end stage renal disease; N18.6 End stage renal disease; E83.51 Hypocalcemia; E87.1 Hypo-osmolality and hyponatremia; F31.9 Bipolar disorder, unspecified; F17.200 Nicotine dependence, unspecified, uncomplicated; Z99.2 Dependence on renal dialysis; Z88.8 Allergy status to other drugs, medicaments and biological substances; Z95.5 Presence of coronary angioplasty implant and graft; Z98.890 Other specified postprocedural states

== ENCOUNTER 2024-08-07 10:38 | Emergency (ER) | payer OTHER ==
[~2024-08-07] VITALS: Ht 175.2 cm; Wt 97.0 kg
[2024-08-07 10:48] VITALS: BP 130/80
[2024-08-07] MEDS ORDERED: Amoxicillin/Clavulanate Pota 875 MG TAB PO ONE (10:55)
[2024-08-07] MEDS ORDERED: AMOX-CLAV 875-1 EACH PO (11:00)
[2024-08-07] MEDS ORDERED: Acetaminophen/Hydrocodone 5 MG/325 MG TABLET PO ONE (11:00)
== END 2024-08-07 11:09 | disposition home or self-care (01) ==
LOC: ED 10:38
DX: K08.89 Other specified disorders of teeth and supporting structures (principal); R22.0 Localized swelling, mass and lump, head; I12.9 Hypertensive chronic kidney disease with stage 1 through stage 4 chronic kidney disease, or unspecified chronic kidney disease; E11.22 Type 2 diabetes mellitus with diabetic chronic kidney disease; N18.9 Chronic kidney disease, unspecified; D63.1 Anemia in chronic kidney disease; I12.0 Hypertensive chronic kidney disease with stage 5 chronic kidney disease or end stage renal disease; N18.6 End stage renal disease; E83.51 Hypocalcemia; E87.1 Hypo-osmolality and hyponatremia; F17.200 Nicotine dependence, unspecified, uncomplicated; Z88.8 Allergy status to other drugs, medicaments and biological substances; Z95.5 Presence of coronary angioplasty implant and graft; Z98.890 Other specified postprocedural states

== ENCOUNTER 2024-08-13 08:32 | Emergency (ER) | payer OTHER ==
[~2024-08-13] VITALS: Ht 177.8 cm; Wt 95.0 kg
[2024-08-13] MEDS ORDERED: Dicyclomine Hydrochloride 20 MG/10 ML OSYR PO STA (08:38)
[2024-08-13] MEDS ORDERED: MG-AL HYDROXIDE/SIMETICONE 30 ML UDC PO STA (08:38)
[2024-08-13] MEDS ORDERED: Lidocaine Hydrochloride 15 ML UDC PO STA (08:38)
[2024-08-13 08:57] LABS: BASO % 0.6 % (0.0-1.0); EOS # 0.2 10*3/uL (0.0-0.4); EOS % 2.3 % (1.0-4.0); HEMATOCRIT 30.8 % (42.0-52.0); MEAN CELL VOLUME 95.4 fl (80.0-94.0); MEAN CORPUSCULAR HGB CONC 32.5 g/dl (33.0-37.0); MEAN PLATELET VOLUME 9.9 fl (9.6-12.3); MONO # 0.5 10*3/uL (0.1-1.0); MONO % 7.5 % (3.0-9.0); NEUT # 3.8 10*3/uL (2.3-7.9); NEUT % 53.1 % (47.0-73.0); PLATELET COUNT AUTOMATED 208 10*3/uL (130-400); RED BLOOD COUNT 3.23 10*6/uL (4.50-5.90); RED CELL DISTRI WIDTH 14.5 % (0-14.5); WHITE BLOOD COUNT 7.1 10*3/uL (4.8-10.8)
[2024-08-13 09:13] LABS: ACT PARTIAL THROMBO TIME 25.8 SECONDS (20.0-32.1)
[2024-08-13 09:18] LABS: POTASSIUM 5.1 mmol/L (3.4-5.1); TOTAL PROTEIN 7.1 gm/dL (6.0-8.0)
[2024-08-13 10:40] VITALS: BP 153/87
[2024-08-13] MEDS ORDERED: AMOX-CLAV 875-1 EACH PO (11:38)
== END 2024-08-13 11:39 | disposition home or self-care (01) ==
LOC: ED 08:32
PROVIDERS: Internal Medicine
DX: K21.9 Gastro-esophageal reflux disease without esophagitis (principal); Z20.822 Contact with and (suspected) exposure to COVID-19; E11.22 Type 2 diabetes mellitus with diabetic chronic kidney disease; I12.0 Hypertensive chronic kidney disease with stage 5 chronic kidney disease or end stage renal disease; N18.6 End stage renal disease; R12 Heartburn; R53.1 Weakness; Z99.2 Dependence on renal dialysis; D63.1 Anemia in chronic kidney disease; E83.51 Hypocalcemia; E87.1 Hypo-osmolality and hyponatremia; F31.9 Bipolar disorder, unspecified; E11.40 Type 2 diabetes mellitus with diabetic neuropathy, unspecified; F17.200 Nicotine dependence, unspecified, uncomplicated; Z88.8 Allergy status to other drugs, medicaments and biological substances; Z95.5 Presence of coronary angioplasty implant and graft; Z98.890 Other specified postprocedural states

== ENCOUNTER 2024-08-29 17:36 | Inpatient (IN) | payer OTHER ==
[~2024-08-29] VITALS: Ht 175.3 cm; Wt 95.9 kg
[2024-08-29 18:05] VITALS: BP 141/82
[2024-08-29] MEDS ORDERED: AZITHROMYCIN 250 MG TAB PO ONE (20:50)
[2024-08-29] MEDS ORDERED: Ceftriaxone Sodium 1 GM/10 ML SYR IV ONE (20:50)
[2024-08-29 21:00] LABS: BASO % 0.5 % (0.0-1.0); EOS # 0.1 10*3/uL (0.0-0.4); EOS % 1.7 % (1.0-4.0); HEMATOCRIT 34.9 % (42.0-52.0); MEAN CELL VOLUME 97.2 fl (80.0-94.0); MEAN CORPUSCULAR HGB 31.5 pg (27.0-31.0); MEAN CORPUSCULAR HGB CONC 32.4 g/dl (33.0-37.0); MEAN PLATELET VOLUME 10.8 fl (9.6-12.3); MONO # 0.6 10*3/uL (0.1-1.0); MONO % 7.5 % (3.0-9.0); NEUT # 5.1 10*3/uL (2.3-7.9); NEUT % 65.7 % (47.0-73.0); PLATELET COUNT AUTOMATED 200 10*3/uL (130-400); RED BLOOD COUNT 3.59 10*6/uL (4.50-5.90); WHITE BLOOD COUNT 7.8 10*3/uL (4.8-10.8)
[2024-08-29 21:32] LABS: POTASSIUM 5.3 mmol/L (3.4-5.1)
[2024-08-29] MEDS ORDERED: MG-AL HYDROXIDE/SIMETICONE 30 ML UDC PO STA (21:37)
[2024-08-29] MEDS ORDERED: Dicyclomine Hydrochloride 20 MG/10 ML OSYR PO STA (21:37)
[2024-08-29] MEDS ORDERED: Lidocaine Hydrochloride 15 ML UDC PO STA (21:37)
[2024-08-29] MEDS ORDERED: INSULIN REGULAR, HUMAN 1 UNIT/0.01 ML IV ONE (22:10)
[2024-08-29] MEDS ORDERED: DEXTROSE 50% 25 GM/50 ML SYR IV ONE (22:10)
[2024-08-29] MEDS ORDERED: Ondansetron Hydrochloride 4 MG/2 ML VIAL IV PRN (22:25)
[2024-08-29] MEDS ORDERED: ACETAMINOPHEN 650 MG SUPP R PRN (22:25)
[2024-08-29] MEDS ORDERED: ACETAMINOPHEN 325 MG TAB PO PRN (22:25)
[2024-08-29] MEDS ORDERED: DEXTROSE 10 % IN WATER 250 ML IV PRN (22:55)
[2024-08-30] VITALS: BP 142/77
[2024-08-30] MEDS ORDERED: OXYCODONE HCL (IR) 10 MG TABLET PO PRN (02:05)
[2024-08-30 05:20] LABS: POTASSIUM 5.4 mmol/L (3.4-5.1)
[2024-08-30 06:05] LABS: BASO % 0.6 % (0.0-1.0); EOS # 0.2 10*3/uL (0.0-0.4); EOS % 2.3 % (1.0-4.0); HEMATOCRIT 33.6 % (42.0-52.0); MEAN CELL VOLUME 95.5 fl (80.0-94.0); MEAN CORPUSCULAR HGB CONC 32.4 g/dl (33.0-37.0); MEAN PLATELET VOLUME 11.3 fl (9.6-12.3); MONO # 0.6 10*3/uL (0.1-1.0); MONO % 8.7 % (3.0-9.0); NEUT # 2.9 10*3/uL (2.3-7.9); NEUT % 45.4 % (47.0-73.0); PLATELET COUNT AUTOMATED 204 10*3/uL (130-400); RED BLOOD COUNT 3.52 10*6/uL (4.50-5.90); RED CELL DISTRI WIDTH 15.3 % (0-14.5); WHITE BLOOD COUNT 6.5 10*3/uL (4.8-10.8)
[2024-08-30] MEDS ORDERED: INSULIN LISPRO 1 UNIT/0.01 ML SQ SCH (07:30)
[2024-08-30] MEDS ORDERED: Pantoprazole Sodium 40 MG TAB PO SCH (07:30)
[2024-08-30 08:00] VITALS: BP 149/85
[2024-08-30] MEDS ORDERED: PREGABALIN 75 MG CAP PO SCH (10:00)
[2024-08-30] MEDS ORDERED: buPROPion SR 150 MG TAB PO SCH (10:00)
[2024-08-30] MEDS ORDERED: Labetalol Hydrochloride 200 MG TAB PO SCH (10:00)
[2024-08-30] MEDS ORDERED: Insulin Glargine, Recombinan 1 UNIT/0.01 ML SC SCH (10:00)
[2024-08-30] MEDS ORDERED: Piperacillin Sodium/Tazobact 2.25 GM in SODIUM CHLORIDE 0.9% 50 ML IV SCH ×2 (10:00→12:00)
[2024-08-30] MEDS ORDERED: ASPIRIN, CHEWABLE 81 MG TAB PO SCH (10:00)
[2024-08-30] MEDS ORDERED: Clopidogrel Hydrogen Sulfate 75 MG TAB PO SCH (10:00)
[2024-08-30] MEDS ORDERED: HEPARIN SODIUM 5,000 UNIT/ML VIAL SC SCH (10:00)
[2024-08-30] MEDS ORDERED: CALCIUM (TUMS) 500MG PO PRN (10:30)
[2024-08-30 12:00] VITALS: BP 127/73
[2024-08-30 16:00] VITALS: BP 126/79
[2024-08-30] MEDS ORDERED: ATORVASTATIN CALCIUM 40 MG TABLET PO SCH (18:00)
[2024-08-30 20:00] VITALS: BP 144/61
[2024-08-30] MEDS ORDERED: Ceftriaxone Sodium 1 GM in SYRINGE INFUSION 10 ML IV SCH (20:00)
[2024-08-30] MEDS ORDERED: AZITHROMYCIN 250 ML IV SCH (21:00)
[2024-08-31] VITALS: BP 154/78
[2024-08-31 05:10] LABS: POTASSIUM 5.7 mmol/L (3.4-5.1)
[2024-08-31 06:06] LABS: BASO # 0.1 10*3/uL (0.0-0.1); BASO % 0.8 % (0.0-1.0); EOS # 0.2 10*3/uL (0.0-0.4); EOS % 3.3 % (1.0-4.0); HEMATOCRIT 31.9 % (42.0-52.0); MEAN CELL VOLUME 95.8 fl (80.0-94.0); MEAN CORPUSCULAR HGB 31.5 pg (27.0-31.0); MEAN CORPUSCULAR HGB CONC 32.9 g/dl (33.0-37.0); MEAN PLATELET VOLUME 11.1 fl (9.6-12.3); MONO # 0.5 10*3/uL (0.1-1.0); MONO % 7.9 % (3.0-9.0); NEUT # 2.4 10*3/uL (2.3-7.9); NEUT % 39.5 % (47.0-73.0); PLATELET COUNT AUTOMATED 196 10*3/uL (130-400); RED BLOOD COUNT 3.33 10*6/uL (4.50-5.90); RED CELL DISTRI WIDTH 14.9 % (0-14.5); WHITE BLOOD COUNT 6.1 10*3/uL (4.8-10.8)
[2024-08-31 08:00] VITALS: BP 168/88
[2024-08-31] MEDS ORDERED: LIDOCAINE 1 EA PATCH T PRN (09:25)
[2024-08-31 12:00] VITALS: BP 156/77
[2024-08-31] MEDS ORDERED: DOXYCYCLINE HY100 M3 PO (12:00)
== END 2024-08-31 17:47 | disposition home or self-care (01) | DRG 177 ==
LOC: ED 17:36 → EDHOLD 22:14 → 4E 23:39
PROVIDERS: Family Medicine; Internal Medicine; Student in an Organized Health Care Education/Training Program; ADMIT Student in an Organized Health Care Education/Training Program; ATTEND Student in an Organized Health Care Education/Training Program
DX: J69.0 Pneumonitis due to inhalation of food and vomit (principal); N18.6 End stage renal disease; I12.0 Hypertensive chronic kidney disease with stage 5 chronic kidney disease or end stage renal disease; E87.5 Hyperkalemia; K04.7 Periapical abscess without sinus; D53.9 Nutritional anemia, unspecified; D50.9 Iron deficiency anemia, unspecified; E11.65 Type 2 diabetes mellitus with hyperglycemia; E11.3293 Type 2 diabetes mellitus with mild nonproliferative diabetic retinopathy without macular edema, bilateral; E11.22 Type 2 diabetes mellitus with diabetic chronic kidney disease; Z88.8 Allergy status to other drugs, medicaments and biological substances; Z91.09 Other allergy status, other than to drugs and biological substances; Z79.899 Other long term (current) drug therapy; Z79.01 Long term (current) use of anticoagulants; Z79.2 Long term (current) use of antibiotics; Z83.3 Family history of diabetes mellitus; Z81.1 Family history of alcohol abuse and dependence; Z82.49 Family history of ischemic heart disease and other diseases of the circulatory system; Z99.2 Dependence on renal dialysis; Z86.73 Personal history of transient ischemic attack (TIA), and cerebral infarction without residual deficits; Z79.4 Long term (current) use of insulin

== ENCOUNTER → 2024-09-01 | Outpatient (CLI) | payer OTHER | END | disposition home or self-care (01) | LOC: ORTHO 01:33 | PROVIDERS: ATTEND Orthopaedic Surgery | DX: S82.64XD Nondisplaced fracture of lateral malleolus of right fibula, subsequent encounter for closed fracture with routine healing (principal); X58.XXXD Exposure to other specified factors, subsequent encounter ==

== ENCOUNTER 2024-09-22 13:41 | Emergency (ER) | payer OTHER ==
[~2024-09-22] VITALS: Ht 175.2 cm; Wt 99.0 kg
[2024-09-22 14:08] VITALS: BP 153/92
[2024-09-22] MEDS ORDERED: Acetaminophen/Oxycodone 5 MG/325 MG TABLET PO ONE (14:30)
== END 2024-09-22 16:29 | disposition home or self-care (01) ==
LOC: ED 13:41
DX: S90.32XA Contusion of left foot, initial encounter (principal); E11.22 Type 2 diabetes mellitus with diabetic chronic kidney disease; I12.0 Hypertensive chronic kidney disease with stage 5 chronic kidney disease or end stage renal disease; N18.6 End stage renal disease; Z99.2 Dependence on renal dialysis; D63.1 Anemia in chronic kidney disease; E87.1 Hypo-osmolality and hyponatremia; E83.51 Hypocalcemia; F31.9 Bipolar disorder, unspecified; Z88.8 Allergy status to other drugs, medicaments and biological substances; Z95.5 Presence of coronary angioplasty implant and graft; Z98.890 Other specified postprocedural states; X58.XXXA Exposure to other specified factors, initial encounter; Y93.E1 Activity, personal bathing and showering; Y92.89 Other specified places as the place of occurrence of the external cause; Y99.8 Other external cause status

== ENCOUNTER 2024-09-28 14:25 | Emergency (ER) | payer OTHER ==
[~2024-09-28] VITALS: Ht 175.2 cm; Wt 2.7 kg
[2024-09-28 14:36] VITALS: BP 155/87
[2024-09-28 14:59] LABS: BASO % 0.6 % (0.0-1.0); EOS # 0.1 10*3/uL (0.0-0.4); EOS % 2.2 % (1.0-4.0); HEMATOCRIT 31.7 % (42.0-52.0); MEAN CELL VOLUME 95.5 fl (80.0-94.0); MEAN CORPUSCULAR HGB 31.6 pg (27.0-31.0); MEAN CORPUSCULAR HGB CONC 33.1 g/dl (33.0-37.0); MEAN PLATELET VOLUME 10.3 fl (9.6-12.3); MONO # 0.4 10*3/uL (0.1-1.0); NEUT # 3.7 10*3/uL (2.3-7.9); NEUT % 58.3 % (47.0-73.0); PLATELET COUNT AUTOMATED 206 10*3/uL (130-400); RED BLOOD COUNT 3.32 10*6/uL (4.50-5.90); WHITE BLOOD COUNT 6.3 10*3/uL (4.8-10.8)
[2024-09-28 15:14] LABS: POTASSIUM 4.7 mmol/L (3.4-5.1)
== END 2024-09-28 16:44 | disposition home or self-care (01) ==
LOC: ED 14:25
PROVIDERS: Internal Medicine
DX: J40 Bronchitis, not specified as acute or chronic (principal); Z20.822 Contact with and (suspected) exposure to COVID-19; E11.22 Type 2 diabetes mellitus with diabetic chronic kidney disease; I12.0 Hypertensive chronic kidney disease with stage 5 chronic kidney disease or end stage renal disease; N18.6 End stage renal disease; Z99.2 Dependence on renal dialysis; D63.1 Anemia in chronic kidney disease; F31.9 Bipolar disorder, unspecified; E83.51 Hypocalcemia; E87.1 Hypo-osmolality and hyponatremia; Z88.8 Allergy status to other drugs, medicaments and biological substances; Z98.890 Other specified postprocedural states; Z95.5 Presence of coronary angioplasty implant and graft

== ENCOUNTER → 2024-09-29 | Outpatient (CLI) | payer OTHER | END | disposition home or self-care (01) | LOC: ORTHO 01:57 → RAD 01:57 | PROVIDERS: ATTEND Orthopaedic Surgery | DX: S82.64XD Nondisplaced fracture of lateral malleolus of right fibula, subsequent encounter for closed fracture with routine healing (principal); M79.89 Other specified soft tissue disorders; X58.XXXD Exposure to other specified factors, subsequent encounter ==

== ENCOUNTER 2024-10-27 21:46 | Emergency (ER) | payer OTHER ==
[~2024-10-27] VITALS: Ht 177.8 cm; Wt 95.3 kg
[2024-10-27 21:57] VITALS: BP 179/101
[2024-10-27] MEDS ORDERED: MG-AL HYDROXIDE/SIMETICONE 30 ML UDC PO STA (22:21)
[2024-10-27] MEDS ORDERED: Dicyclomine Hydrochloride 20 MG/10 ML OSYR PO STA (22:21)
[2024-10-27] MEDS ORDERED: Lidocaine Hydrochloride 15 ML UDC PO STA ×2 (22:21→22:24)
[2024-10-27] MEDS ORDERED: Ondansetron Hydrochloride 4 MG TAB SL ONE (22:30)
== END 2024-10-27 22:57 | disposition home or self-care (01) ==
LOC: ED 21:46
DX: K21.9 Gastro-esophageal reflux disease without esophagitis (principal); R11.0 Nausea; R07.89 Other chest pain; F31.9 Bipolar disorder, unspecified; E87.5 Hyperkalemia; E11.22 Type 2 diabetes mellitus with diabetic chronic kidney disease; I12.0 Hypertensive chronic kidney disease with stage 5 chronic kidney disease or end stage renal disease; N18.6 End stage renal disease; Z99.2 Dependence on renal dialysis; D63.1 Anemia in chronic kidney disease; E87.1 Hypo-osmolality and hyponatremia; Z88.8 Allergy status to other drugs, medicaments and biological substances; Z95.5 Presence of coronary angioplasty implant and graft; Z98.890 Other specified postprocedural states

== ENCOUNTER 2024-10-30 16:43 | Emergency (ER) | payer OTHER ==
[~2024-10-30] VITALS: Wt 96.0 kg
[2024-10-30] MEDS ORDERED: Lidocaine Hydrochloride 15 ML UDC PO STA (17:06)
[2024-10-30] MEDS ORDERED: MG-AL HYDROXIDE/SIMETICONE 30 ML UDC PO STA (17:06)
[2024-10-30] MEDS ORDERED: Dicyclomine Hydrochloride 20 MG/10 ML OSYR PO STA (17:06)
[2024-10-30 17:21] LABS: BASO % 0.5 % (0.0-1.0); EOS # 0.1 10*3/uL (0.0-0.4); EOS % 1.7 % (1.0-4.0); MEAN CELL VOLUME 93.4 fl (80.0-94.0); MEAN CORPUSCULAR HGB 31.9 pg (27.0-31.0); MEAN CORPUSCULAR HGB CONC 34.2 g/dl (33.0-37.0); MEAN PLATELET VOLUME 9.9 fl (9.6-12.3); MONO # 0.5 10*3/uL (0.1-1.0); MONO % 8.2 % (3.0-9.0); NEUT # 3.4 10*3/uL (2.3-7.9); PLATELET COUNT AUTOMATED 152 10*3/uL (130-400); RED BLOOD COUNT 4.07 10*6/uL (4.50-5.90)
[2024-10-30 17:39] LABS: POTASSIUM 4.9 mmol/L (3.4-5.1); TOTAL PROTEIN 6.7 gm/dL (6.0-8.0)
[2024-10-30] MEDS ORDERED: PEPCID AC10 M2 PO (18:53)
== END 2024-10-30 18:55 | disposition home or self-care (01) ==
LOC: ED 16:43
PROVIDERS: Physician Assistant Medical
DX: K21.9 Gastro-esophageal reflux disease without esophagitis (principal); I12.0 Hypertensive chronic kidney disease with stage 5 chronic kidney disease or end stage renal disease; E11.22 Type 2 diabetes mellitus with diabetic chronic kidney disease; N18.6 End stage renal disease; Z88.8 Allergy status to other drugs, medicaments and biological substances; Z79.899 Other long term (current) drug therapy; Z79.4 Long term (current) use of insulin; Z79.82 Long term (current) use of aspirin; Z99.2 Dependence on renal dialysis; Z86.73 Personal history of transient ischemic attack (TIA), and cerebral infarction without residual deficits; Z98.890 Other specified postprocedural states

== ENCOUNTER 2024-11-01 23:39 | Emergency (ER) | payer OTHER ==
[~2024-11-01] VITALS: Ht 175.2 cm; Wt 96.0 kg
[~2024-11-01 23:39] MED LIST changes: +PEPCID AC10 M2 PO
[2024-11-02] MEDS ORDERED: MG-AL HYDROXIDE/SIMETICONE 30 ML UDC PO STA (00:29)
[2024-11-02] MEDS ORDERED: Dicyclomine Hydrochloride 20 MG/10 ML OSYR PO STA (00:29)
[2024-11-02] MEDS ORDERED: Lidocaine Hydrochloride 15 ML UDC PO STA (00:29)
[2024-11-02] MEDS ORDERED: SIMETHICONE125 M2 PO (01:35)
[2024-11-02 01:36] VITALS: BP 131/79
[2024-11-03] MEDS ORDERED: VIBRAMYCIN100 MG PO (20:37)
== END 2024-11-02 01:41 | disposition home or self-care (01) ==
LOC: ED 23:39
DX: R14.1 Gas pain (principal); R10.9 Unspecified abdominal pain; K21.9 Gastro-esophageal reflux disease without esophagitis; F17.200 Nicotine dependence, unspecified, uncomplicated; Z88.8 Allergy status to other drugs, medicaments and biological substances; Z79.899 Other long term (current) drug therapy; Z79.82 Long term (current) use of aspirin; Z79.4 Long term (current) use of insulin; Z98.890 Other specified postprocedural states

== ENCOUNTER 2024-11-03 17:21 | Emergency (ER) | payer OTHER ==
[~2024-11-03] VITALS: Ht 175.2 cm; Wt 96.0 kg
[~2024-11-03 17:21] MED LIST changes: +SIMETHICONE125 M2 PO
[2024-11-03 17:32] VITALS: BP 191/115
[2024-11-03] MEDS ORDERED: Lidocaine Hydrochloride 15 ML UDC PO STA (17:52)
[2024-11-03] MEDS ORDERED: Dicyclomine Hydrochloride 20 MG/10 ML OSYR PO STA (17:52)
[2024-11-03] MEDS ORDERED: MG-AL HYDROXIDE/SIMETICONE 30 ML UDC PO STA (17:52)
[2024-11-03 18:15] LABS: BASO # 0.1 10*3/uL (0.0-0.1); BASO % 0.9 % (0.0-1.0); EOS # 0.1 10*3/uL (0.0-0.4); EOS % 1.9 % (1.0-4.0); HEMATOCRIT 39.1 % (42.0-52.0); MEAN CELL VOLUME 92.9 fl (80.0-94.0); MEAN CORPUSCULAR HGB 31.1 pg (27.0-31.0); MEAN CORPUSCULAR HGB CONC 33.5 g/dl (33.0-37.0); MEAN PLATELET VOLUME 10.3 fl (9.6-12.3); MONO # 0.3 10*3/uL (0.1-1.0); MONO % 6.4 % (3.0-9.0); NEUT # 3.6 10*3/uL (2.3-7.9); NEUT % 68.6 % (47.0-73.0); PLATELET COUNT AUTOMATED 189 10*3/uL (130-400); RED BLOOD COUNT 4.21 10*6/uL (4.50-5.90); RED CELL DISTRI WIDTH 13.9 % (0-14.5); WHITE BLOOD COUNT 5.3 10*3/uL (4.8-10.8)
[2024-11-03 18:34] LABS: POTASSIUM 4.3 mmol/L (3.4-5.1); TOTAL PROTEIN 7.4 gm/dL (6.0-8.0)
[2024-11-03] MEDS ORDERED: SIMETHICONE 80 MG TAB PO ONE (20:35)
[2024-11-03] MEDS ORDERED: Doxycycline Hyclate 100 MG TAB PO ONE (20:35)
[2024-11-03] MEDS ORDERED: VIBRAMYCIN100 MG PO (20:37)
== END 2024-11-03 21:17 | disposition home or self-care (01) ==
LOC: ED 17:21
PROVIDERS: Nurse Practitioner Family
DX: K21.9 Gastro-esophageal reflux disease without esophagitis (principal); J98.11 Atelectasis; I12.0 Hypertensive chronic kidney disease with stage 5 chronic kidney disease or end stage renal disease; E11.22 Type 2 diabetes mellitus with diabetic chronic kidney disease; N18.6 End stage renal disease; E78.5 Hyperlipidemia, unspecified; F32.A Depression, unspecified; Z99.2 Dependence on renal dialysis; Z88.8 Allergy status to other drugs, medicaments and biological substances; Z79.899 Other long term (current) drug therapy; Z79.4 Long term (current) use of insulin; Z79.82 Long term (current) use of aspirin; Z86.73 Personal history of transient ischemic attack (TIA), and cerebral infarction without residual deficits; Z98.890 Other specified postprocedural states

== ENCOUNTER 2024-11-19 21:50 | Emergency (ER) | payer OTHER ==
[~2024-11-19] VITALS: Ht 175.2 cm; Wt 89.8 kg
[2024-11-19] MEDS ORDERED: Lidocaine Hydrochloride 15 ML UDC PO STA (22:09)
[2024-11-19] MEDS ORDERED: Dicyclomine Hydrochloride 20 MG/10 ML OSYR PO STA (22:09)
[2024-11-19] MEDS ORDERED: MG-AL HYDROXIDE/SIMETICONE 30 ML UDC PO STA (22:09)
[2024-11-19] MEDS ORDERED: Ondansetron Hydrochloride 4 MG TAB PO ONE (22:10)
[2024-11-19] MEDS ORDERED: SIMETHICONE 80 MG TAB PO ONE (22:10)
[2024-11-19 22:20] LABS: BASO % 0.6 % (0.0-1.0); EOS # 0.1 10*3/uL (0.0-0.4); EOS % 1.6 % (1.0-4.0); HEMATOCRIT 40.2 % (42.0-52.0); MEAN CELL VOLUME 92.6 fl (80.0-94.0); MEAN CORPUSCULAR HGB 30.9 pg (27.0-31.0); MEAN CORPUSCULAR HGB CONC 33.3 g/dl (33.0-37.0); MEAN PLATELET VOLUME 10.3 fl (9.6-12.3); MONO # 0.5 10*3/uL (0.1-1.0); MONO % 6.7 % (3.0-9.0); NEUT # 3.5 10*3/uL (2.3-7.9); NEUT % 49.6 % (47.0-73.0); PLATELET COUNT AUTOMATED 210 10*3/uL (130-400); RED BLOOD COUNT 4.34 10*6/uL (4.50-5.90); RED CELL DISTRI WIDTH 13.3 % (0-14.5)
[2024-11-19 22:42] LABS: POTASSIUM 3.8 mmol/L (3.4-5.1); TOTAL PROTEIN 7.4 gm/dL (6.0-8.0)
[2024-11-19 22:56] VITALS: BP 138/87
[2024-11-19] MEDS ORDERED: TICAGRELOR 90 MG TABLET PO ONE (23:15)
[2024-11-19] MEDS ORDERED: HEPARIN SODIUM 250 ML IV SCH (23:15)
== END 2024-11-20 00:05 | disposition short-term general hospital (02) ==
LOC: ED 21:50
PROVIDERS: Physician Assistant Medical
DX: I21.3 ST elevation (STEMI) myocardial infarction of unspecified site (principal); K21.9 Gastro-esophageal reflux disease without esophagitis; I12.0 Hypertensive chronic kidney disease with stage 5 chronic kidney disease or end stage renal disease; E11.22 Type 2 diabetes mellitus with diabetic chronic kidney disease; N18.6 End stage renal disease; Z79.82 Long term (current) use of aspirin; Z99.2 Dependence on renal dialysis; Z79.4 Long term (current) use of insulin; Z79.84 Long term (current) use of oral hypoglycemic drugs; Z79.899 Other long term (current) drug therapy; Z88.8 Allergy status to other drugs, medicaments and biological substances; Z98.890 Other specified postprocedural states

== ENCOUNTER 2024-11-21 04:40 | Emergency (ER) | payer OTHER ==
[~2024-11-21] VITALS: Ht 175.2 cm; Wt 99.1 kg
[2024-11-21] MEDS ORDERED: Lidocaine Hydrochloride 15 ML UDC PO STA (05:22)
[2024-11-21] MEDS ORDERED: MG-AL HYDROXIDE/SIMETICONE 30 ML UDC PO STA (05:22)
[2024-11-21] MEDS ORDERED: Dicyclomine Hydrochloride 20 MG/10 ML OSYR PO STA (05:22)
[2024-11-21] MEDS ORDERED: LORazepam 1 MG TAB PO ONE (05:25)
[2024-11-21 05:26] LABS: TOTAL PROTEIN 6.6 gm/dL (6.0-8.0)
[2024-11-21 05:59] LABS: BASO % 0.6 % (0.0-1.0); EOS # 0.2 10*3/uL (0.0-0.4); EOS % 2.4 % (1.0-4.0); HEMATOCRIT 34.2 % (42.0-52.0); MEAN CELL VOLUME 92.7 fl (80.0-94.0); MEAN CORPUSCULAR HGB 31.2 pg (27.0-31.0); MEAN CORPUSCULAR HGB CONC 33.6 g/dl (33.0-37.0); MEAN PLATELET VOLUME 11.1 fl (9.6-12.3); MONO # 0.5 10*3/uL (0.1-1.0); MONO % 6.9 % (3.0-9.0); NEUT # 3.8 10*3/uL (2.3-7.9); PLATELET COUNT AUTOMATED 180 10*3/uL (130-400); RED BLOOD COUNT 3.69 10*6/uL (4.50-5.90); RED CELL DISTRI WIDTH 13.5 % (0-14.5); WHITE BLOOD COUNT 6.6 10*3/uL (4.8-10.8)
[2024-11-21 08:19] VITALS: BP 185/85
== END 2024-11-21 07:58 | disposition left against medical advice (07) ==
LOC: ED 04:40
PROVIDERS: Internal Medicine
DX: I21.4 Non-ST elevation (NSTEMI) myocardial infarction (principal); E11.22 Type 2 diabetes mellitus with diabetic chronic kidney disease; I12.0 Hypertensive chronic kidney disease with stage 5 chronic kidney disease or end stage renal disease; N18.6 End stage renal disease; E78.5 Hyperlipidemia, unspecified; I25.10 Atherosclerotic heart disease of native coronary artery without angina pectoris; I25.2 Old myocardial infarction; Z88.8 Allergy status to other drugs, medicaments and biological substances; Z79.899 Other long term (current) drug therapy; Z79.4 Long term (current) use of insulin; Z79.82 Long term (current) use of aspirin; Z98.890 Other specified postprocedural states

== ENCOUNTER 2024-11-26 21:35 | Emergency (ER) | payer OTHER ==
[~2024-11-26] VITALS: Ht 175.2 cm; Wt 95.0 kg
[2024-11-26 21:51] VITALS: BP 164/92
[2024-11-26] MEDS ORDERED: Dicyclomine Hydrochloride 20 MG/10 ML OSYR PO STA (22:14)
[2024-11-26] MEDS ORDERED: MG-AL HYDROXIDE/SIMETICONE 30 ML UDC PO STA (22:14)
[2024-11-26] MEDS ORDERED: Lidocaine Hydrochloride 15 ML UDC PO STA (22:14)
[2024-11-26 22:50] LABS: BASO % 0.7 % (0.0-1.0); EOS # 0.2 10*3/uL (0.0-0.4); EOS % 2.7 % (1.0-4.0); HEMATOCRIT 35.3 % (42.0-52.0); MEAN CELL VOLUME 93.4 fl (80.0-94.0); MEAN CORPUSCULAR HGB 31.2 pg (27.0-31.0); MEAN CORPUSCULAR HGB CONC 33.4 g/dl (33.0-37.0); MEAN PLATELET VOLUME 10.4 fl (9.6-12.3); MONO # 0.5 10*3/uL (0.1-1.0); NEUT # 2.9 10*3/uL (2.3-7.9); NEUT % 51.5 % (47.0-73.0); PLATELET COUNT AUTOMATED 197 10*3/uL (130-400); RED BLOOD COUNT 3.78 10*6/uL (4.50-5.90); RED CELL DISTRI WIDTH 14.1 % (0-14.5); WHITE BLOOD COUNT 5.6 10*3/uL (4.8-10.8)
[2024-11-26 23:16] LABS: POTASSIUM 4.5 mmol/L (3.4-5.1); TOTAL PROTEIN 7.1 gm/dL (6.0-8.0)
== END 2024-11-26 23:51 | disposition home or self-care (01) ==
LOC: ED 21:35
PROVIDERS: Internal Medicine
DX: K21.9 Gastro-esophageal reflux disease without esophagitis (principal); I12.0 Hypertensive chronic kidney disease with stage 5 chronic kidney disease or end stage renal disease; E11.22 Type 2 diabetes mellitus with diabetic chronic kidney disease; N18.6 End stage renal disease; D63.1 Anemia in chronic kidney disease; E87.29 Other acidosis; R74.8 Abnormal levels of other serum enzymes; Z99.2 Dependence on renal dialysis; Z79.82 Long term (current) use of aspirin; Z79.899 Other long term (current) drug therapy; Z88.8 Allergy status to other drugs, medicaments and biological substances; Z98.890 Other specified postprocedural states

== ENCOUNTER 2024-11-27 00:23 | Emergency (ER) | payer OTHER ==
[2024-11-27 00:34] VITALS: BP 157/88
[2024-11-27] MEDS ORDERED: Pantoprazole Sodium 40 MG VIAL IV ONE (00:45)
[2024-11-27] MEDS ORDERED: CALCIUM (TUMS) 500MG PO ONE (00:45)
== END 2024-11-27 01:17 | disposition home or self-care (01) ==
LOC: ED 00:23
DX: K21.9 Gastro-esophageal reflux disease without esophagitis (principal); Z88.8 Allergy status to other drugs, medicaments and biological substances; Z79.899 Other long term (current) drug therapy; Z79.82 Long term (current) use of aspirin; Z79.4 Long term (current) use of insulin; Z98.890 Other specified postprocedural states

== ENCOUNTER 2024-11-29 00:21 | Emergency (ER) | payer OTHER ==
[~2024-11-29] VITALS: Ht 175.2 cm; Wt 1.6 kg
[2024-11-29 00:29] VITALS: BP 180/102
[2024-11-29] MEDS ORDERED: CLONIDINE0.2 MG PO (00:31)
[2024-11-29] MEDS ORDERED: Lidocaine Hydrochloride 15 ML UDC PO STA (00:48)
[2024-11-29] MEDS ORDERED: MG-AL HYDROXIDE/SIMETICONE 30 ML UDC PO STA (00:48)
[2024-11-29] MEDS ORDERED: Dicyclomine Hydrochloride 20 MG/10 ML OSYR PO STA (00:48)
[2024-11-29] MEDS ORDERED: Amoxicillin/Clavulanate Pota 875 MG TAB PO ONE (01:20)
[2024-11-29] MEDS ORDERED: AMOX-CLAV 875-1 EACH PO (01:33)
== END 2024-11-29 01:48 | disposition home or self-care (01) ==
LOC: ED 00:21
DX: K04.7 Periapical abscess without sinus (principal); K21.9 Gastro-esophageal reflux disease without esophagitis; Z88.8 Allergy status to other drugs, medicaments and biological substances; Z79.899 Other long term (current) drug therapy; Z79.82 Long term (current) use of aspirin; Z98.890 Other specified postprocedural states

== ENCOUNTER 2024-12-01 10:48 | Emergency (ER) | payer OTHER ==
[~2024-12-01] VITALS: Ht 170.1 cm; Wt 92.1 kg
[2024-12-01 10:57] VITALS: BP 156/93
[2024-12-01] MEDS ORDERED: MG-AL HYDROXIDE/SIMETICONE 30 ML UDC PO ONE (11:45)
[2024-12-01] MEDS ORDERED: Lidocaine Hydrochloride 15 ML UDC PO ONE (11:45)
[2024-12-01] MEDS ORDERED: Carafate1 GM PO (11:50)
== END 2024-12-01 12:05 | disposition home or self-care (01) ==
LOC: ED 10:48
DX: K21.9 Gastro-esophageal reflux disease without esophagitis (principal); Z88.8 Allergy status to other drugs, medicaments and biological substances; Z79.899 Other long term (current) drug therapy; Z79.82 Long term (current) use of aspirin; Z98.890 Other specified postprocedural states

== ENCOUNTER 2024-12-01 15:25 | Emergency (ER) | payer OTHER, MEDICAID ==
[~2024-12-01] VITALS: Ht 175.2 cm; Wt 2.7 kg
[~2024-12-01 15:25] MED LIST changes: +Carafate1 GM PO
[2024-12-01 15:33] VITALS: BP 162/117
[2024-12-01] MEDS ORDERED: Ketorolac Tromethamine 30 MG/ML VIAL IM ONE (16:10)
== END 2024-12-01 16:33 | disposition home or self-care (01) ==
LOC: ED 15:25
DX: G89.29 Other chronic pain (principal); M54.50 Low back pain, unspecified; L53.9 Erythematous condition, unspecified; E11.40 Type 2 diabetes mellitus with diabetic neuropathy, unspecified; E78.5 Hyperlipidemia, unspecified; K21.9 Gastro-esophageal reflux disease without esophagitis; I10 Essential (primary) hypertension; F32.A Depression, unspecified; Z88.8 Allergy status to other drugs, medicaments and biological substances; Z79.899 Other long term (current) drug therapy; Z79.4 Long term (current) use of insulin; Z79.82 Long term (current) use of aspirin; Z98.890 Other specified postprocedural states

== ENCOUNTER 2024-12-16 14:00 | Emergency (ER) | payer OTHER ==
[~2024-12-16] VITALS: Ht 175.2 cm; Wt 95.0 kg
[2024-12-16 14:19] VITALS: BP 179/104
[2024-12-16] MEDS ORDERED: Ondansetron4 MG PO (23:22)
[2024-12-17] MEDS ORDERED: PENICILLIN VK500 MG PO (16:04)
== END 2024-12-16 16:04 | disposition left against medical advice (07) ==
LOC: ED 14:00
DX: R09.89 Other specified symptoms and signs involving the circulatory and respiratory systems (principal); Z53.21 Procedure and treatment not carried out due to patient leaving prior to being seen by health care provider

== ENCOUNTER 2024-12-16 20:59 | Emergency (ER) | payer OTHER ==
[~2024-12-16] VITALS: Ht 175.2 cm; Wt 95.0 kg
[2024-12-16] MEDS ORDERED: Ondansetron Hydrochloride 4 MG TAB SL ONE (21:40)
[2024-12-16 21:46] LABS: BASO % 0.5 % (0.0-1.0); EOS # 0.1 10*3/uL (0.0-0.4); HEMATOCRIT 31.7 % (42.0-52.0); MEAN CELL VOLUME 92.7 fl (80.0-94.0); MEAN CORPUSCULAR HGB 31.3 pg (27.0-31.0); MEAN CORPUSCULAR HGB CONC 33.8 g/dl (33.0-37.0); MEAN PLATELET VOLUME 10.9 fl (9.6-12.3); MONO # 0.5 10*3/uL (0.1-1.0); MONO % 7.5 % (3.0-9.0); NEUT # 3.6 10*3/uL (2.3-7.9); NEUT % 54.8 % (47.0-73.0); PLATELET COUNT AUTOMATED 172 10*3/uL (130-400); RED BLOOD COUNT 3.42 10*6/uL (4.50-5.90); WHITE BLOOD COUNT 6.5 10*3/uL (4.8-10.8)
[2024-12-16 22:07] LABS: POTASSIUM 4.2 mmol/L (3.4-5.1); TOTAL PROTEIN 6.8 gm/dL (6.0-8.0)
[2024-12-16] MEDS ORDERED: Ondansetron4 MG PO (23:22)
[2024-12-16 23:36] VITALS: BP 145/94
[2024-12-17] MEDS ORDERED: PENICILLIN VK500 MG PO (16:04)
== END 2024-12-16 23:28 | disposition home or self-care (01) ==
LOC: ED 20:59
PROVIDERS: Internal Medicine
DX: B34.9 Viral infection, unspecified (principal); I12.0 Hypertensive chronic kidney disease with stage 5 chronic kidney disease or end stage renal disease; E11.22 Type 2 diabetes mellitus with diabetic chronic kidney disease; N18.6 End stage renal disease; D63.1 Anemia in chronic kidney disease; Z99.2 Dependence on renal dialysis; Z79.4 Long term (current) use of insulin; Z79.82 Long term (current) use of aspirin; Z79.899 Other long term (current) drug therapy; Z88.1 Allergy status to other antibiotic agents; Z88.8 Allergy status to other drugs, medicaments and biological substances; Z98.890 Other specified postprocedural states

== ENCOUNTER 2024-12-17 12:53 | Emergency (ER) | payer OTHER ==
[~2024-12-17] VITALS: Wt 95.0 kg
[2024-12-17 13:59] VITALS: BP 163/92
[2024-12-17] MEDS ORDERED: Ondansetron Hydrochloride 4 MG TAB PO ONE (14:20)
[2024-12-17] MEDS ORDERED: PENICILLIN V POTASSIUM 500 MG TAB PO ONE (15:55)
[2024-12-17] MEDS ORDERED: PENICILLIN VK500 MG PO (16:04)
== END 2024-12-17 16:14 | disposition home or self-care (01) ==
LOC: ED 12:53
DX: K04.7 Periapical abscess without sinus (principal); Z79.899 Other long term (current) drug therapy; Z88.1 Allergy status to other antibiotic agents; Z88.8 Allergy status to other drugs, medicaments and biological substances; I12.0 Hypertensive chronic kidney disease with stage 5 chronic kidney disease or end stage renal disease; E11.22 Type 2 diabetes mellitus with diabetic chronic kidney disease; N18.6 End stage renal disease; Z98.890 Other specified postprocedural states

== ENCOUNTER 2024-12-19 19:46 | Emergency (ER) | payer OTHER ==
[~2024-12-19] VITALS: Ht 175.2 cm; Wt 0.9 kg
[2024-12-19 19:58] VITALS: BP 176/100
[2024-12-19] MEDS ORDERED: Ondansetron Hydrochloride 4 MG TAB SL ONE (20:10)
[2024-12-19 20:23] LABS: BASO % 0.6 % (0.0-1.0); EOS # 0.1 10*3/uL (0.0-0.4); EOS % 2.6 % (1.0-4.0); MEAN CELL VOLUME 90.9 fl (80.0-94.0); MEAN CORPUSCULAR HGB 31.5 pg (27.0-31.0); MEAN CORPUSCULAR HGB CONC 34.7 g/dl (33.0-37.0); MEAN PLATELET VOLUME 10.3 fl (9.6-12.3); MONO # 0.4 10*3/uL (0.1-1.0); MONO % 7.8 % (3.0-9.0); NEUT % 59.3 % (47.0-73.0); PLATELET COUNT AUTOMATED 170 10*3/uL (130-400); RED BLOOD COUNT 3.52 10*6/uL (4.50-5.90); RED CELL DISTRI WIDTH 13.8 % (0-14.5)
[2024-12-19] MEDS ORDERED: GENTLE LAXATIVE5 M1 PO (21:02)
[2024-12-20] MEDS ORDERED: NORMODYNE,TRAN100 MG PO (17:42)
[2024-12-20] MEDS ORDERED: Ondansetron4 MG PO (18:27)
[2024-12-20] MEDS ORDERED: DULCOLAX5 M1 PO (18:28)
== END 2024-12-19 21:11 | disposition home or self-care (01) ==
LOC: ED 19:46
PROVIDERS: Internal Medicine
DX: K59.00 Constipation, unspecified (principal); I12.0 Hypertensive chronic kidney disease with stage 5 chronic kidney disease or end stage renal disease; E11.22 Type 2 diabetes mellitus with diabetic chronic kidney disease; N18.6 End stage renal disease; F31.9 Bipolar disorder, unspecified; Z79.4 Long term (current) use of insulin; Z79.82 Long term (current) use of aspirin; Z79.899 Other long term (current) drug therapy; Z99.2 Dependence on renal dialysis; Z98.890 Other specified postprocedural states

== ENCOUNTER 2024-12-20 17:24 | Emergency (ER) | payer MEDICARE, OTHER ==
[~2024-12-20] VITALS: Ht 175.2 cm; Wt 94.3 kg
[~2024-12-20 17:24] MED LIST changes: +GENTLE LAXATIVE5 M1 PO
[2024-12-20 17:39] VITALS: BP 129/89
[2024-12-20] MEDS ORDERED: NORMODYNE,TRAN100 MG PO (17:42)
[2024-12-20] MEDS ORDERED: Ondansetron Hydrochloride 4 MG TAB SL ONE (17:50)
[2024-12-20 17:58] LABS: BASO % 0.3 % (0.0-1.0); EOS # 0.1 10*3/uL (0.0-0.4); EOS % 1.5 % (1.0-4.0); HEMATOCRIT 32.1 % (42.0-52.0); MEAN CELL VOLUME 91.2 fl (80.0-94.0); MEAN CORPUSCULAR HGB 31.5 pg (27.0-31.0); MEAN CORPUSCULAR HGB CONC 34.6 g/dl (33.0-37.0); MEAN PLATELET VOLUME 10.4 fl (9.6-12.3); MONO # 0.5 10*3/uL (0.1-1.0); MONO % 7.4 % (3.0-9.0); NEUT % 75.5 % (47.0-73.0); PLATELET COUNT AUTOMATED 165 10*3/uL (130-400); RED BLOOD COUNT 3.52 10*6/uL (4.50-5.90); RED CELL DISTRI WIDTH 14.2 % (0-14.5); WHITE BLOOD COUNT 6.6 10*3/uL (4.8-10.8)
[2024-12-20 18:16] LABS: POTASSIUM 3.9 mmol/L (3.4-5.1)
[2024-12-20] MEDS ORDERED: Ondansetron4 MG PO (18:27)
[2024-12-20] MEDS ORDERED: DULCOLAX5 M1 PO (18:28)
[2024-12-20] MEDS ORDERED: BISACODYL 5 MG TAB PO ONE (18:30)
[2024-12-20] MEDS ORDERED: Ondansetron 4 MG 2 TAB ED PACK PO SCH ×2 (18:30→18:50)
== END 2024-12-20 18:52 ==
LOC: ED 17:24
PROVIDERS: Nurse Practitioner Family
DX: K59.00 Constipation, unspecified (principal); R11.0 Nausea; Z88.8 Allergy status to other drugs, medicaments and biological substances; Z79.899 Other long term (current) drug therapy; Z79.4 Long term (current) use of insulin; Z79.82 Long term (current) use of aspirin; Z98.890 Other specified postprocedural states

== ENCOUNTER 2024-12-21 14:22 | Inpatient (IN) | payer OTHER ==
[~2024-12-21] VITALS: Ht 175.2 cm; Wt 94.0 kg
[~2024-12-21 14:22] MED LIST changes: +DULCOLAX5 M1 PO; +NORMODYNE,TRAN100 MG PO
[2024-12-21 14:42] VITALS: BP 152/95
[2024-12-21] MEDS ORDERED: Promethazine Hydrochloride 25 MG/ML VIAL IV ONE (15:00)
[2024-12-21 15:14] LABS: BASO % 0.3 % (0.0-1.0); EOS # 0.1 10*3/uL (0.0-0.4); EOS % 1.9 % (1.0-4.0); HEMATOCRIT 30.9 % (42.0-52.0); MEAN CELL VOLUME 91.7 fl (80.0-94.0); MEAN CORPUSCULAR HGB 31.5 pg (27.0-31.0); MEAN CORPUSCULAR HGB CONC 34.3 g/dl (33.0-37.0); MEAN PLATELET VOLUME 10.6 fl (9.6-12.3); MONO # 0.6 10*3/uL (0.1-1.0); MONO % 8.2 % (3.0-9.0); NEUT # 4.8 10*3/uL (2.3-7.9); NEUT % 69.9 % (47.0-73.0); PLATELET COUNT AUTOMATED 166 10*3/uL (130-400); RED BLOOD COUNT 3.37 10*6/uL (4.50-5.90); RED CELL DISTRI WIDTH 13.9 % (0-14.5); WHITE BLOOD COUNT 6.8 10*3/uL (4.8-10.8)
[2024-12-21] MEDS ORDERED: Iodixanol 320 100 ML VIAL IV ONE (15:20)
[2024-12-21 15:40] LABS: POTASSIUM 3.8 mmol/L (3.4-5.1); TOTAL PROTEIN 6.6 gm/dL (6.0-8.0)
[2024-12-21] MEDS ORDERED: Peg Electrolyte Lavage Solut 4,000 ML BOT PO ONE ×2 (18:15→23:45)
[2024-12-21] MEDS ORDERED: ACETAMINOPHEN 650 MG SUPP R PRN (18:15)
[2024-12-21] MEDS ORDERED: Acetaminophen/Hydrocodone 5 MG/325 MG TABLET PO PRN (18:15)
[2024-12-21] MEDS ORDERED: Ondansetron Hydrochloride 4 MG/2 ML VIAL IV PRN (18:15)
[2024-12-21] MEDS ORDERED: TEMAZEPAM 15 MG CAP PO PRN (18:15)
[2024-12-21] MEDS ORDERED: ACETAMINOPHEN 325 MG TAB PO PRN (18:15)
[2024-12-21] MEDS ORDERED: SODIUM CHLORIDE 0.9% 1,000 ML IV SCH (18:45)
[2024-12-21 18:48] VITALS: BP 148/88
[2024-12-21] MEDS ORDERED: DEXTROSE 50% 25 GM/50 ML SYR IV PRN (18:50)
[2024-12-21] MEDS ORDERED: HEPARIN SODIUM 5,000 UNIT/ML VIAL SC SCH (22:00)
[2024-12-21] MEDS ORDERED: INSULIN LISPRO 1 UNIT/0.01 ML SQ SCH (22:00)
[2024-12-21 23:41] VITALS: BP 139/73
[2024-12-22 03:53] VITALS: BP 180/98
[2024-12-22] MEDS ORDERED: MORPHINE Sulfate 2 MG/ML SYR IV PRN ×2 (04:00→18:35)
[2024-12-22] MEDS ORDERED: MORPHINE Sulfate 2 MG/ML SYR IV ONE (04:00)
[2024-12-22 05:28] VITALS: BP 168/105
[2024-12-22 06:03] LABS: FREE T4 1.26 ng/dl (0.89-1.76); POTASSIUM 4.6 mmol/L (3.4-5.1)
[2024-12-22] MEDS ORDERED: hydrALAZINE hydrochloride 20 MG/ML VIAL IV ONE (06:05)
[2024-12-22 06:34] LABS: BASO % 0.5 % (0.0-1.0); EOS # 0.1 10*3/uL (0.0-0.4); EOS % 2.2 % (1.0-4.0); HEMATOCRIT 34.7 % (42.0-52.0); MEAN CELL VOLUME 94.3 fl (80.0-94.0); MEAN CORPUSCULAR HGB 31.8 pg (27.0-31.0); MEAN CORPUSCULAR HGB CONC 33.7 g/dl (33.0-37.0); MEAN PLATELET VOLUME 10.9 fl (9.6-12.3); MONO # 0.6 10*3/uL (0.1-1.0); MONO % 8.5 % (3.0-9.0); NEUT # 3.9 10*3/uL (2.3-7.9); NEUT % 60.3 % (47.0-73.0); PLATELET COUNT AUTOMATED 177 10*3/uL (130-400); RED BLOOD COUNT 3.68 10*6/uL (4.50-5.90); WHITE BLOOD COUNT 6.4 10*3/uL (4.8-10.8)
[2024-12-22 06:35] LABS: VITAMIN D, 25-HYDROXY 31.5 ng/mL (30-100)
[2024-12-22] MEDS ORDERED: MINERAL OIL 30 ML UDC PO ONE (08:35)
[2024-12-22] MEDS ORDERED: Amoxicillin/Clavulanate Pota 500 MG TAB PO SCH (16:00)
[2024-12-22] MEDS ORDERED: CALCIUM (TUMS) 500MG PO PRN (17:00)
[2024-12-22 20:00] VITALS: BP 153/97
[2024-12-23] VITALS: BP 160/83
[2024-12-23 06:39] LABS: BASO % 0.8 % (0.0-1.0); EOS # 0.1 10*3/uL (0.0-0.4); EOS % 2.3 % (1.0-4.0); HEMATOCRIT 33.3 % (42.0-52.0); MEAN CELL VOLUME 92.5 fl (80.0-94.0); MEAN CORPUSCULAR HGB 31.1 pg (27.0-31.0); MEAN CORPUSCULAR HGB CONC 33.6 g/dl (33.0-37.0); MEAN PLATELET VOLUME 10.8 fl (9.6-12.3); MONO # 0.5 10*3/uL (0.1-1.0); MONO % 9.8 % (3.0-9.0); NEUT % 56.6 % (47.0-73.0); PLATELET COUNT AUTOMATED 178 10*3/uL (130-400); RED CELL DISTRI WIDTH 14.1 % (0-14.5); WHITE BLOOD COUNT 5.3 10*3/uL (4.8-10.8)
[2024-12-23 07:27] LABS: POTASSIUM 4.3 mmol/L (3.4-5.1)
[2024-12-23 08:00] VITALS: BP 192/91
[2024-12-23] MEDS ORDERED: SODIUM CHLORIDE 0.9% 1,000 ML (CHILLED) IVB IV ONE (08:50)
[2024-12-23] MEDS ORDERED: AMOX-CLAV 500-1 EACH PO (11:10)
[2024-12-23 12:00] VITALS: BP 195/90
[2024-12-23] MEDS ORDERED: Ondansetron Hydrochloride 4 MG TAB PO ONE (14:35)
== END 2024-12-23 15:45 | disposition home or self-care (01) | DRG 388 ==
LOC: ED 14:22 → EDHOLD 17:53 → 4E 12-22 09:37 → EDHOLD 12-22 09:37 → 4E 12-22 09:37 → 5E 12-22 14:03
PROVIDERS: Emergency Medicine; Student in an Organized Health Care Education/Training Program; ADMIT Internal Medicine; ATTEND Internal Medicine
DX: K56.600 Partial intestinal obstruction, unspecified as to cause (principal); N18.6 End stage renal disease; N17.9 Acute kidney failure, unspecified; I12.0 Hypertensive chronic kidney disease with stage 5 chronic kidney disease or end stage renal disease; K80.20 Calculus of gallbladder without cholecystitis without obstruction; K59.00 Constipation, unspecified; K21.9 Gastro-esophageal reflux disease without esophagitis; E11.22 Type 2 diabetes mellitus with diabetic chronic kidney disease; E11.65 Type 2 diabetes mellitus with hyperglycemia; E11.3599 Type 2 diabetes mellitus with proliferative diabetic retinopathy without macular edema, unspecified eye; D64.9 Anemia, unspecified; Z99.2 Dependence on renal dialysis; Z88.8 Allergy status to other drugs, medicaments and biological substances; Z83.3 Family history of diabetes mellitus; Z82.49 Family history of ischemic heart disease and other diseases of the circulatory system; Z86.73 Personal history of transient ischemic attack (TIA), and cerebral infarction without residual deficits; Z79.4 Long term (current) use of insulin; Z79.899 Other long term (current) drug therapy

== ENCOUNTER 2024-12-28 20:57 | Emergency (ER) | payer OTHER ==
[~2024-12-28] VITALS: Ht 175.2 cm; Wt 93.0 kg
[~2024-12-28 20:57] MED LIST changes: +AMOX-CLAV 500-1 EACH PO
[2024-12-28 21:15] VITALS: BP 156/91
[2024-12-28] MEDS ORDERED: diphenhydrAMINE hydrochloride 25 MG CAP PO ONE (21:25)
[2024-12-28] MEDS ORDERED: Metoclopramide Hydrochloride 5 MG TAB PO ONE (21:25)
== END 2024-12-28 23:05 | disposition home or self-care (01) ==
LOC: ED 20:57
DX: R11.2 Nausea with vomiting, unspecified (principal); Z88.8 Allergy status to other drugs, medicaments and biological substances; Z79.899 Other long term (current) drug therapy; Z79.82 Long term (current) use of aspirin; Z79.4 Long term (current) use of insulin; Z98.890 Other specified postprocedural states

== ENCOUNTER → 2024-12-31 | Outpatient (CLI) | payer OTHER ==
[~2024-12-31] MED LIST changes: +CLONIDINE HCL0.1 MG PO
== END | disposition home or self-care (01) ==
LOC: LAB 12:37
PROVIDERS: ATTEND Internal Medicine
DX: R52 Pain, unspecified (principal)

== ENCOUNTER 2025-01-01 21:20 | Emergency (ER) | payer OTHER ==
[~2025-01-01] VITALS: Ht 172.7 cm; Wt 99.8 kg
[~2025-01-01 21:20] MED LIST changes: -CLONIDINE HCL0.1 MG PO
[2025-01-01] MEDS ORDERED: cloNIDine Hydrochloride 0.1 MG TAB PO ONE (22:15)
[2025-01-01 22:19] VITALS: BP 186/93
[2025-01-01] MEDS ORDERED: CLONIDINE0.2 MG PO (22:19)
[2025-01-01] MEDS ORDERED: CLONIDINE HCL0.1 MG PO (22:20)
== END 2025-01-01 22:21 | disposition home or self-care (01) ==
LOC: ED 21:20
DX: I12.0 Hypertensive chronic kidney disease with stage 5 chronic kidney disease or end stage renal disease (principal); E11.22 Type 2 diabetes mellitus with diabetic chronic kidney disease; N18.6 End stage renal disease; Z88.1 Allergy status to other antibiotic agents; Z88.8 Allergy status to other drugs, medicaments and biological substances; Z79.899 Other long term (current) drug therapy; Z79.4 Long term (current) use of insulin; Z79.82 Long term (current) use of aspirin; Z98.890 Other specified postprocedural states; Z91.148 Patient's other noncompliance with medication regimen for other reason; Z99.2 Dependence on renal dialysis

== ENCOUNTER 2025-01-04 19:34 | Emergency (ER) | payer OTHER ==
[~2025-01-04] VITALS: Ht 175.2 cm; Wt 90.8 kg
[~2025-01-04 19:34] MED LIST changes: +CLONIDINE HCL0.1 MG PO
== END 2025-01-05 00:40 | disposition left against medical advice (07) ==
LOC: ED 19:34
DX: K59.00 Constipation, unspecified (principal); E11.22 Type 2 diabetes mellitus with diabetic chronic kidney disease; I12.0 Hypertensive chronic kidney disease with stage 5 chronic kidney disease or end stage renal disease; N18.6 End stage renal disease; Z99.2 Dependence on renal dialysis; D63.1 Anemia in chronic kidney disease; E83.51 Hypocalcemia; E87.1 Hypo-osmolality and hyponatremia; Z53.29 Procedure and treatment not carried out because of patient's decision for other reasons; Z88.8 Allergy status to other drugs, medicaments and biological substances; Z95.0 Presence of cardiac pacemaker; Z98.890 Other specified postprocedural states

== ENCOUNTER 2025-01-20 18:03 | Emergency (ER) | payer OTHER ==
[~2025-01-20] VITALS: Ht 175.2 cm; Wt 92.0 kg
[2025-01-20 20:27] VITALS: BP 155/92
[2025-01-20] MEDS ORDERED: Dexamethasone Sodium Phospha 20 MG/5 ML VIAL IM ONE (20:40)
[2025-01-20] MEDS ORDERED: METHOCARBAMOL 750 MG TAB PO ONE (20:40)
[2025-01-20] MEDS ORDERED: PREDNISONE20 M1 PO (20:42)
[2025-01-20] MEDS ORDERED: TRAMADOL HCL50 MG PO (20:42)
[2025-01-20] MEDS ORDERED: METHOCARBAMOL750 M1 PO (20:42)
== END 2025-01-20 21:50 | disposition home or self-care (01) ==
LOC: ED 18:03
DX: M54.42 Lumbago with sciatica, left side (principal); M54.16 Radiculopathy, lumbar region; E11.22 Type 2 diabetes mellitus with diabetic chronic kidney disease; I12.0 Hypertensive chronic kidney disease with stage 5 chronic kidney disease or end stage renal disease; N18.6 End stage renal disease; F17.290 Nicotine dependence, other tobacco product, uncomplicated; Z99.2 Dependence on renal dialysis; Z88.8 Allergy status to other drugs, medicaments and biological substances; Z79.899 Other long term (current) drug therapy; Z79.82 Long term (current) use of aspirin; Z79.4 Long term (current) use of insulin; Z98.890 Other specified postprocedural states

== ENCOUNTER 2025-02-06 14:53 | Emergency (ER) | payer OTHER ==
[~2025-02-06] VITALS: Wt 91.0 kg
[2025-02-06 15:34] VITALS: BP 127/78
[2025-02-06] MEDS ORDERED: HYDROmorphONE Hydrochloride 0.5 MG/0.5 ML SYRINGE IM ONE (16:40)
[2025-02-06] MEDS ORDERED: TRAMADOL HCL50 MG PO (17:24)
== END 2025-02-06 17:39 | disposition home or self-care (01) ==
LOC: ED 14:53
DX: G89.29 Other chronic pain (principal); M54.50 Low back pain, unspecified; K21.9 Gastro-esophageal reflux disease without esophagitis; I12.9 Hypertensive chronic kidney disease with stage 1 through stage 4 chronic kidney disease, or unspecified chronic kidney disease; E11.22 Type 2 diabetes mellitus with diabetic chronic kidney disease; N18.6 End stage renal disease; Z79.4 Long term (current) use of insulin; Z79.899 Other long term (current) drug therapy; Z88.8 Allergy status to other drugs, medicaments and biological substances; Z98.890 Other specified postprocedural states

== ENCOUNTER 2025-02-11 19:30 | Emergency (ER) | payer OTHER ==
[~2025-02-11] VITALS: Ht 175.2 cm; Wt 91.4 kg
[2025-02-11 20:09] VITALS: BP 109/66
[2025-02-11] MEDS ORDERED: Ondansetron Hydrochloride 4 MG TAB SL ONE (20:25)
[2025-02-11] MEDS ORDERED: Acetaminophen/Hydrocodone 5 MG/325 MG TABLET PO ONE (21:50)
== END 2025-02-11 22:03 | disposition home or self-care (01) ==
LOC: ED 19:30
DX: M54.16 Radiculopathy, lumbar region (principal); M54.50 Low back pain, unspecified; G89.29 Other chronic pain; E11.22 Type 2 diabetes mellitus with diabetic chronic kidney disease; I12.0 Hypertensive chronic kidney disease with stage 5 chronic kidney disease or end stage renal disease; N18.6 End stage renal disease; Z99.2 Dependence on renal dialysis; Z88.8 Allergy status to other drugs, medicaments and biological substances; Z79.899 Other long term (current) drug therapy; Z79.82 Long term (current) use of aspirin; Z79.4 Long term (current) use of insulin; Z86.73 Personal history of transient ischemic attack (TIA), and cerebral infarction without residual deficits; Z98.890 Other specified postprocedural states

== ENCOUNTER 2025-02-14 15:20 | Emergency (ER) | payer OTHER ==
[~2025-02-14] VITALS: Ht 175.2 cm; Wt 90.8 kg
[2025-02-14 15:44] VITALS: BP 163/93
[2025-02-14] MEDS ORDERED: Acetaminophen/Oxycodone 5 MG/325 MG TABLET PO ONE (16:20)
== END 2025-02-14 16:24 | disposition home or self-care (01) ==
LOC: ED 15:20
DX: M54.50 Low back pain, unspecified (principal); G89.29 Other chronic pain; Z88.8 Allergy status to other drugs, medicaments and biological substances; Z79.899 Other long term (current) drug therapy; Z79.4 Long term (current) use of insulin; Z79.82 Long term (current) use of aspirin; Z98.890 Other specified postprocedural states

== ENCOUNTER 2025-02-17 19:08 | Emergency (ER) | payer OTHER ==
[~2025-02-17] VITALS: Ht 175.2 cm; Wt 94.0 kg
[2025-02-17 19:37] VITALS: BP 169/96
[2025-02-17] MEDS ORDERED: PERCOCET 5-3251 EACH PO (19:49)
[2025-02-17] MEDS ORDERED: OXYCODONE HCL (IR) 10 MG TABLET PO ONE (19:50)
== END 2025-02-17 20:22 | disposition home or self-care (01) ==
LOC: ED 19:08
DX: M54.42 Lumbago with sciatica, left side (principal); G89.29 Other chronic pain; I10 Essential (primary) hypertension; E11.9 Type 2 diabetes mellitus without complications; Z88.8 Allergy status to other drugs, medicaments and biological substances; Z79.899 Other long term (current) drug therapy; Z79.4 Long term (current) use of insulin; Z79.82 Long term (current) use of aspirin; Z98.890 Other specified postprocedural states

== ENCOUNTER 2025-02-18 17:12 | Emergency (ER) | payer OTHER ==
[~2025-02-18] VITALS: Ht 175.2 cm; Wt 91.6 kg
[2025-02-18 17:21] VITALS: BP 143/85
[2025-02-18] MEDS ORDERED: OXYCODONE HCL (IR) 10 MG TABLET PO ONE (17:30)
== END 2025-02-18 17:51 | disposition home or self-care (01) ==
LOC: ED 17:12
DX: G89.29 Other chronic pain (principal); M54.50 Low back pain, unspecified; I10 Essential (primary) hypertension; E11.9 Type 2 diabetes mellitus without complications; Z79.4 Long term (current) use of insulin; Z79.899 Other long term (current) drug therapy; Z88.8 Allergy status to other drugs, medicaments and biological substances; Z98.890 Other specified postprocedural states

== ENCOUNTER 2025-02-23 17:48 | Emergency (ER) | payer OTHER ==
[~2025-02-23] VITALS: Ht 175.2 cm; Wt 91.6 kg
[2025-02-23 18:30] VITALS: BP 169/104
== END 2025-02-23 20:14 | disposition home or self-care (01) ==
LOC: ED 17:48
DX: G89.29 Other chronic pain (principal); M54.50 Low back pain, unspecified; I12.9 Hypertensive chronic kidney disease with stage 1 through stage 4 chronic kidney disease, or unspecified chronic kidney disease; E11.22 Type 2 diabetes mellitus with diabetic chronic kidney disease; N18.6 End stage renal disease; F31.9 Bipolar disorder, unspecified; Z79.82 Long term (current) use of aspirin; Z79.4 Long term (current) use of insulin; Z79.899 Other long term (current) drug therapy; Z88.8 Allergy status to other drugs, medicaments and biological substances

== ENCOUNTER 2025-03-06 16:28 | Emergency (ER) | payer OTHER ==
[~2025-03-06] VITALS: Ht 175.2 cm; Wt 2.6 kg
[2025-03-06 17:27] LABS: BASO # 0.0 10*3/uL (0.0-0.1); BASO % 0.1 % (0.0-1.0); EOS # 0.2 10*3/uL (0.0-0.4); EOS % 2.5 % (1.0-4.0); MEAN CELL VOLUME 94.1 fl (80.0-94.0); MEAN CORPUSCULAR HGB 32.2 pg (27.0-31.0); MEAN PLATELET VOLUME 10.0 fl (9.6-12.3); MONO # 0.5 10*3/uL (0.1-1.0); MONO % 7.6 % (3.0-9.0); NEUT # 4.0 10*3/uL (2.3-7.9); NEUT % 56.9 % (47.0-73.0); NUCLEATED RED BLOOD CELL 0.0 % (0.0-0.0); NUCLEATED RED BLOOD CELL 0.0 10*3/uL (0.0-0.0); PLATELET COUNT AUTOMATED 169 10*3/uL (130-400); RED CELL DISTRI WIDTH 13.0 % (0-14.5)
[2025-03-06 17:38] LABS: ACT PARTIAL THROMBO TIME 24.3 SECONDS (20.0-32.1)
[2025-03-06] MEDS ORDERED: hydrALAZINE hydrochloride 20 MG/ML VIAL IV ONE ×2 (17:50→21:45)
[2025-03-06 17:54] LABS: BUN 57.0 mg/dl (9-23)
[2025-03-06] MEDS ORDERED: ACETAMINOPHEN 325 MG TAB PO ONE (18:55)
[2025-03-06] MEDS ORDERED: Ondansetron Hydrochloride 4 MG/2 ML VIAL IV ONE (19:45)
[2025-03-06] MEDS ORDERED: Labetalol Hydrochloride 20 MG/4 ML SYR IV ONE (20:40)
[2025-03-06 22:31] VITALS: BP 201/108
== END 2025-03-06 22:38 | disposition left against medical advice (07) ==
LOC: ED 16:28
PROVIDERS: Internal Medicine
DX: I16.1 Hypertensive emergency (principal); Z88.8 Allergy status to other drugs, medicaments and biological substances; Z98.890 Other specified postprocedural states

== ENCOUNTER 2025-03-11 09:59 | Emergency (ER) | payer OTHER ==
[~2025-03-11] VITALS: Ht 205.7 cm; Wt 91.0 kg
[2025-03-11 10:08] VITALS: BP 173/101
[2025-03-11] MEDS ORDERED: METHOCARBAMOL 750 MG TAB PO ONE (10:30)
[2025-03-11] MEDS ORDERED: ACETAMINOPHEN 100 ML IV ONE (10:30)
[2025-03-11 10:55] LABS: BASO # 0.0 10*3/uL (0.0-0.1); BASO % 0.6 % (0.0-1.0); EOS # 0.2 10*3/uL (0.0-0.4); EOS % 2.6 % (1.0-4.0); MEAN CELL VOLUME 93.5 fl (80.0-94.0); MEAN CORPUSCULAR HGB 32.0 pg (27.0-31.0); MEAN PLATELET VOLUME 9.9 fl (9.6-12.3); MONO # 0.4 10*3/uL (0.1-1.0); MONO % 6.2 % (3.0-9.0); NEUT # 4.1 10*3/uL (2.3-7.9); NEUT % 62.5 % (47.0-73.0); NUCLEATED RED BLOOD CELL 0.0 % (0.0-0.0); NUCLEATED RED BLOOD CELL 0.0 10*3/uL (0.0-0.0); PLATELET COUNT AUTOMATED 197 10*3/uL (130-400); RED CELL DISTRI WIDTH 12.9 % (0-14.5)
[2025-03-11 11:18] LABS: BUN 18 mg/dl (9-23); SGPT/ALT 23 U/L (5-49)
[2025-03-11] MEDS ORDERED: Ondansetron Hydrochloride 4 MG/2 ML VIAL IV ONE (11:40)
== END 2025-03-11 13:53 | disposition home or self-care (01) ==
LOC: ED 09:59
PROVIDERS: Internal Medicine
DX: G89.29 Other chronic pain (principal); M54.50 Low back pain, unspecified; Z88.8 Allergy status to other drugs, medicaments and biological substances; Z79.899 Other long term (current) drug therapy; Z79.82 Long term (current) use of aspirin; Z79.4 Long term (current) use of insulin; Z98.890 Other specified postprocedural states

== ENCOUNTER 2025-03-16 08:45 | Emergency (ER) | payer OTHER ==
[~2025-03-16] VITALS: Wt 90.7 kg
[2025-03-16 08:50] VITALS: BP 157/95
[2025-03-16 09:11] LABS: BASO # 0.0 10*3/uL (0.0-0.1); BASO % 0.4 % (0.0-1.0); EOS # 0.2 10*3/uL (0.0-0.4); EOS % 2.0 % (1.0-4.0); MEAN CELL VOLUME 93.5 fl (80.0-94.0); MEAN CORPUSCULAR HGB 31.5 pg (27.0-31.0); MEAN PLATELET VOLUME 10.0 fl (9.6-12.3); MONO # 0.5 10*3/uL (0.1-1.0); MONO % 6.2 % (3.0-9.0); NEUT # 5.8 10*3/uL (2.3-7.9); NEUT % 67.9 % (47.0-73.0); NUCLEATED RED BLOOD CELL 0.0 % (0.0-0.0); NUCLEATED RED BLOOD CELL 0.0 10*3/uL (0.0-0.0); PLATELET COUNT AUTOMATED 220 10*3/uL (130-400); RED CELL DISTRI WIDTH 13.0 % (0-14.5)
[2025-03-16 09:33] LABS: BUN 37.0 mg/dl (9-23)
[2025-03-16] MEDS ORDERED: LIDOCAINE PAIN1 EACH T (10:11)
== END 2025-03-16 10:13 | disposition home or self-care (01) ==
LOC: ED 08:45
PROVIDERS: Internal Medicine
DX: G89.29 Other chronic pain (principal); M54.50 Low back pain, unspecified; I12.9 Hypertensive chronic kidney disease with stage 1 through stage 4 chronic kidney disease, or unspecified chronic kidney disease; E11.22 Type 2 diabetes mellitus with diabetic chronic kidney disease; N18.6 End stage renal disease; Z79.899 Other long term (current) drug therapy; Z79.4 Long term (current) use of insulin; Z79.82 Long term (current) use of aspirin; Z88.8 Allergy status to other drugs, medicaments and biological substances; Z98.890 Other specified postprocedural states

== ENCOUNTER 2025-03-24 18:41 | Emergency (ER) | payer OTHER ==
[~2025-03-24 18:41] MED LIST changes: +LIDOCAINE PAIN1 EACH T
[2025-03-24] MEDS ORDERED: Labetalol Hydrochloride 20 MG/4 ML SYR IV ONE (19:15)
[2025-03-24] MEDS ORDERED: Ondansetron Hydrochloride 4 MG/2 ML VIAL IV ONE (19:15)
[2025-03-24 19:34] LABS: BASO # 0.0 10*3/uL (0.0-0.1); BASO % 0.4 % (0.0-1.0); EOS # 0.1 10*3/uL (0.0-0.4); EOS % 2.6 % (1.0-4.0); MEAN CELL VOLUME 96.5 fl (80.0-94.0); MEAN CORPUSCULAR HGB 31.6 pg (27.0-31.0); MEAN PLATELET VOLUME 10.2 fl (9.6-12.3); MONO # 0.4 10*3/uL (0.1-1.0); MONO % 9.4 % (3.0-9.0); NEUT # 2.9 10*3/uL (2.3-7.9); NEUT % 61.9 % (47.0-73.0); NUCLEATED RED BLOOD CELL 0.0 % (0.0-0.0); NUCLEATED RED BLOOD CELL 0.0 10*3/uL (0.0-0.0); PLATELET COUNT AUTOMATED 151 10*3/uL (130-400); RED CELL DISTRI WIDTH 12.6 % (0-14.5)
[2025-03-24 20:04] LABS: BUN 54.0 mg/dl (9-23)
[2025-03-24] MEDS ORDERED: INSULIN REGULAR, HUMAN 1 UNIT/0.01 ML IV ONE (20:25)
[2025-03-24] MEDS ORDERED: hydrALAZINE hydrochloride 20 MG/ML VIAL IV ONE (23:15)
[2025-03-25 00:30] VITALS: BP 142/76
== END 2025-03-25 00:55 | disposition home or self-care (01) ==
LOC: ED 18:41
PROVIDERS: Emergency Medicine
DX: E11.65 Type 2 diabetes mellitus with hyperglycemia (principal); R11.0 Nausea; E11.22 Type 2 diabetes mellitus with diabetic chronic kidney disease; I12.0 Hypertensive chronic kidney disease with stage 5 chronic kidney disease or end stage renal disease; Z99.2 Dependence on renal dialysis; K21.9 Gastro-esophageal reflux disease without esophagitis; N18.6 End stage renal disease; Z88.8 Allergy status to other drugs, medicaments and biological substances; Z98.890 Other specified postprocedural states

== ENCOUNTER 2025-05-03 19:38 | Emergency (ER) | payer OTHER ==
[~2025-05-03] VITALS: Ht 175.3 cm; Wt 90.7 kg
[2025-05-03 19:55] VITALS: BP 189/105
[2025-05-03] MEDS ORDERED: ACETAMINOPHEN 325 MG TAB PO ONE (20:15)
[2025-05-03] MEDS ORDERED: Cyclobenzaprine Hydrochlorid 10 MG TAB PO ONE (20:15)
[2025-05-03] MEDS ORDERED: CYCLOBENZAPRINE10 MG PO (22:15)
== END 2025-05-03 22:26 | disposition home or self-care (01) ==
LOC: ED 19:38
DX: M54.42 Lumbago with sciatica, left side (principal); G89.29 Other chronic pain; K21.9 Gastro-esophageal reflux disease without esophagitis; I12.0 Hypertensive chronic kidney disease with stage 5 chronic kidney disease or end stage renal disease; E11.22 Type 2 diabetes mellitus with diabetic chronic kidney disease; N18.6 End stage renal disease; Z88.8 Allergy status to other drugs, medicaments and biological substances; Z79.899 Other long term (current) drug therapy; Z79.4 Long term (current) use of insulin; Z79.82 Long term (current) use of aspirin; Z86.73 Personal history of transient ischemic attack (TIA), and cerebral infarction without residual deficits; Z99.2 Dependence on renal dialysis; Z98.890 Other specified postprocedural states